=== PATIENT | male | born 1945 | race Caucasian/White ===

== ENCOUNTER → 2017-07-20 10:12 | Outpatient (CLI) | payer MEDICARE, OTHER, SELFPAY ==
--- NOTE | 2017-07-20 | DI.CT.S_ITS ---
PROCEDURE: CT CHEST WO CON INDICATIONS: DIFFUSE PARENCYMAL LUNG DISEASE TECHNIQUE: Noncontrast 5 mm thick sections acquired from the pulmonary apices to the posterior costophrenic angles. 7 mm thick coronal and sagittal MIP reformats were then acquired. For radiation dose reduction, the following was used: automated exposure control, adjustment of mA and/or kV according to patient size. COMPARISON: [facility], CT, THORAX WITHOUT CONTRAST, 01/03/2017, 8:44. [facility], CT, THORAX WITHOUT CONTRAST, 03/28/2017, 9:13. FINDINGS: Image quality: Excellent. Lungs and pleura: No acute air space opacities, and areas of posterior right lung upper lobe and lower lobe densities on the left have resolved. No pleural effusions or pneumothorax. Central and peripheral airways are patent and normal in caliber. Mediastinum: Heart size is normal. No pericardial effusion. No mediastinal adenopathy by size criteria. Thoracic aorta and central pulmonary arteries are normal in size. Esophagus is normal in caliber. No hiatal hernia. Bones and chest wall: No suspicious bony lesions. No vertebral body compression fractures. No axillary or supraclavicular adenopathy by size criteria. Thyroid gland appears normal. Abdomen: Visualized upper abdominal solid organs and bowel loops appear normal in the absence of contrast. IMPRESSION: Mild residual airspace disease appears to represent chronic bibasilar scarring present on prior CT scanning. All areas of new mild suspicious airspace disease present 03/28/17 have resolved. Mild residual medial posterior basilar fibrotic change. Dictated by: Bentley Castro M.D. on 07/20/2017 at 11:12 Approved by: Bentley Castro M.D. on 07/20/2017 at 11:21
== END ==
PROVIDERS: PCP Family Medicine; Visit Provider Internal Medicine Critical Care Medicine
DX: J98.4 Other disorders of lung (principal)
CPT/HCPCS: 71250

== ENCOUNTER → 2017-09-12 09:55 | Outpatient (CLI) | payer MEDICARE, OTHER, SELFPAY ==
--- NOTE | 2017-09-12 | DI.RAD.S_ITS ---
PROCEDURE: XR CHEST 2V INDICATIONS: COUGH TECHNIQUE: 2 views of the chest were acquired. COMPARISON: [facility], CT, CT CHEST WO CON, 07/20/2017, 10:24. [facility], CR, CHEST 2 VIEW, 12/06/2016, 11:53. FINDINGS: Surgical changes and devices: None. Lungs and pleura: No pleural effusions or pneumothorax. Lungs are clear, aside from mild linear stranding involving the left lung base.. Mediastinum: Mediastinal contours are normal. Heart size is normal. Bones and chest wall: No suspicious bony abnormalities. Soft tissues appear unremarkable. IMPRESSION: Left basilar scarring unchanged. No acute cardiopulmonary disease. Dictated by: Hari DAY Interpreted: Jamaal Rogers MD on 09/12/2017 at 10:28 Approved by: Art Rogers M.D. on 09/12/2017 at 10:48
== END ==
PROVIDERS: PCP Family Medicine; Visit Provider Family Medicine
DX: R05 Cough (principal)
CPT/HCPCS: 71046

== ENCOUNTER → 2017-11-02 17:07 | Outpatient (CLI) | payer MEDICARE, OTHER, SELFPAY ==
--- NOTE | 2017-11-02 17:09 | DI.MRI.S_ITS ---
PROCEDURE: MR HEAD/BRAIN WO CON INDICATIONS: MEMORY LOSS COGNITIVE ISSUES TECHNIQUE: Non-contrast axial T1 spin echo, axial T2 fast spin echo, sagittal and axial FLAIR, coronal T2 fast spin echo, axial gradient echo, axial diffusion and ADC through the brain. COMPARISON: None. FINDINGS: Image quality: Excellent. CSF spaces: Ventricles appear symmetric in size and shape. Basal cisterns are patent. No extra-axial fluid collections. Brain: No intracranial bleeds or mass effects. There is cerebral volume loss for age. There are periventricular and deep white matter chronic small vessel ischemic changes. Brainstem appears normal. Diffusion-weighted images show no acute ischemic insults. There are regions of high diffusion signal within the left centrum semiovale, which demonstrate high signal on ADC map, consistent with T2 shine through artifact. No chronic ischemic insults. Normal intravascular flow voids are present. Skull and face: Calvarial bone marrow is normal in signal. Orbits are normal. Sinuses: Moderate bilateral maxillary sinus mucosal thickening is present. Small amount of left mastoid fluid. Moderate bilateral ethmoid air cell mucosal thickening. Mild right frontal sinus the coastal thickening. IMPRESSION: 1. Mild volume loss and small vessel ischemic disease. 2. No acute process. Dictated by: Juanis Lazaro M.D. on 11/03/2017 at 9:00 Approved by: Juanis Lazaro M.D. on 11/03/2017 at 9:03
== END ==
PROVIDERS: PCP Family Medicine; Visit Provider Family Medicine
DX: R41.3 Other amnesia (principal)
CPT/HCPCS: 70551

== ENCOUNTER → 2017-12-19 08:12 | Outpatient (CLI) | payer MEDICARE, OTHER, SELFPAY ==
--- NOTE | 2017-12-19 | DI.NM.S_ITS ---
PROCEDURE: [place] JOSE PERF SPECT REST & STR Rest and exercise myocardial perfusion SPECT with gated imaging and ejection fraction RADIOPHARMACEUTICAL: 24.9 mCi Tc-99m sestamibi IV at rest and 25.3 mCi Tc-99m sestamibi IV at peak exercise. A two day-protocol was performed. INDICATIONS: CORONARY ARTERY DISEASE TECHNIQUE: Radiopharmaceutical was injected at peak stress test, and also at rest. SPECT images were obtained. SPECT myocardial perfusion images were displayed in short axis, horizontal long axis, and vertical long axis views. Gated images were reviewed using [employer] software. COMPARISON: [facility], [place], [place] CARDIAC STRESS TEST EXERCISE, 10/06/2015, 9:13. CARDIAC STRESS: A standard Raghav treadmill exercise tolerance test was performed by the patient under the supervision of an attending staff. The patient exercised for 4 minutes and 43 seconds reaching 7.0 METs; functional aerobic impairment (EMERSON) is +30%. Hemodynamic data: There is normal heart rate response to exercise stress. Patient achieved 92% of maximum predicted heart rate at peak exercise. Hypertension at rest and hypertensive response to exercise (rest BP 170/76, max BP 280/120). Symptoms: Patient denied chest pain during exercise. Hypoxia and dyspnea with exercise. Of note, patient on home oxygen chronically. EKG: Resting ECG shows sinus rhythm with IVCD, right axis deviation, and non-specific ST-T changes. No diagnostic EKG changes of ischemia. Frequent PVCs including one 3 beat run of non-sustained VT during recovery. FINDINGS: Raw data: There is good myocardial labeling by radiotracer. No significant motion artifacts. Left ventricle function: Gated images demonstrate normal left ventricle wall thickening. No segmental wall motion abnormality. No transient ischemic dilation. The left ventricle resting end-diastolic volume is 131 mL. Left ventricle stress ejection fraction is 69%; normal values are above 45%. Myocardial perfusion: There is a moderately intense fixed defect in the anterior wall that improves significantly with prone imaging that suggests attenuation artifact. No definite ischemia or infarction present. IMPRESSION: Low risk, probably normal treadmill nuclear stress test. Hypertension at rest and hypertensive response to exercise. 1) Probably normal perfusion images. There is a moderately intense fixed defect in the anterior wall that improves significantly with prone imaging that suggests attenuation artifact. No definite ischemia or infarction present. 2) Normal left ventricular size, wall motion, and systolic function (post stress EF 69%). 3) No ECG evidence of ischemia. Frequent PVCs including one 3 beat run of non-sustained VT during recovery. 4) Hypertension at rest and hypertensive response to exercise (rest BP 170/76, max BP 280/120). 5) No chest pain with exercise. Hypoxia with exercise (patient on home oxygen). 6) Compared to the nuclear stress test done 10/06/2015, no significant change. Dictated by: Chino Watson MD on 12/20/2017 at 12:46 Approved by: Chino Watson MD on 12/20/2017 at 12:54
--- NOTE | 2017-12-19 09:25 | P.PCN_ITS ---
Cardiac Stress Test Report Referral & Results Date Patient Seen: 12/19/17 Time Patient Seen: 09:23 Requesting provider: Matt Bynum Rest ECG: Right bundle branch block Procedure Note: Today following both written and verbal informed consent the patient was exercised according to a standard Raghav protocol patient went for a total of 4 min 43 sec achieving a maximum heart rate of 135 maximum systolic blood pressure of 280. This is approximately 7.0 METS. Exercise was terminated at this point because of severe dyspnea with oxygen saturation in the mid 80s .Patient was also given Cardiolite through a previously started Hep -Lock IV by the nuclear fuel enrichment technician approximately 1 minute prior to the cessation of exercise. There are no ST segment changes identified Normal heart rate and blood pressure response to exercise Functional aerobic impairment 30% on the sedentary scale Occasional PVCs including a couple and run of 4 (identified when patient was severely dyspneic and hypertensive). Oxygen saturation dropped to the mid 80s but returned quickly to 94% with 2 L nasal cannula during the recovery portion of the test Impression: No evidence of ischemia based on usual ECG criteria Perfusion imaging will be reported separately Significant hypoxia with activity as above Please note: Actual ECG tracings can be found in the PACS system.
== END ==
PROVIDERS: PCP Family Medicine; Visit Provider Internal Medicine Cardiovascular Disease
DX: I25.10 Atherosclerotic heart disease of native coronary artery without angina pectoris (principal); I45.10 Unspecified right bundle-branch block; R09.02 Hypoxemia
CPT/HCPCS: 78452; 93016; 93017; 93018; A9502

== ENCOUNTER 2018-02-09 21:37 | Emergency (ER) | payer MEDICARE, OTHER, SELFPAY ==
[2018-02-09 21:44] VITALS: BP 191/82; PULSE 72; RESP 18; TEMP 37.4; O2SAT 98
--- NOTE | 2018-02-09 21:46 | DI.CT.S_ITS ---
PROCEDURE: CT HEAD/BRAIN WO CON INDICATIONS: stroke symptoms, dizzy, speech trouble TECHNIQUE: Noncontrast 4.5 mm thick angled axial sections acquired from the foramen magnum to the vertex, with coronal and sagittal reformats. For radiation dose reduction, the following was used: automated exposure control, adjustment of mA and/or kV according to patient size. COMPARISON: [facility], CR, XR CHEST 2V, 09/12/2017, 10:15. FINDINGS: Image quality: Excellent. CSF spaces: Basal cisterns are patent. No extra-axial fluid collections. The ventricles are symmetric in size and shape. Brain: No intracranial bleeds or masses. There is cerebral volume loss for age, with resultant ventricular and sulcal prominence. There are periventricular and deep white matter chronic small vessel ischemic changes. There is intracranial internal carotid artery atherosclerosis. Skull and face: Calvarium intact. There is mild irregularity of the visualized nasal bones raising the possibility of chronic fractures. There is bilateral postsurgical changes involving the maxillary sinuses bilaterally. There is residual bilateral maxillary sinus disease. There is also bilateral sphenoid and ethmoid air cell opacification. Mild irregularity and lucency seen in the posterior wall of left maxillary sinus. IMPRESSION: No acute intracranial process. Postsurgical changes and residual bilateral ethmoid, maxillary and sphenoid sinus disease as above. Mild irregularity of the posterior wall of left maxillary sinus could be further evaluated with dedicated maxillofacial CT to exclude fracture, as clinically warranted. Dictated by: Ez Nixon M.D. on 02/10/2018 at 8:06 Approved by: Ez Nixon M.D. on 02/10/2018 at 8:11
[2018-02-09] MEDS: SODIUM CHLORIDE 0.9% 1,000 ML 150 ML IV (22:15)
[2018-02-09 22:18] LABS: Add Manual Diff / Slide Review NO; Basophils Percent Auto 0.6 % (0-2); Eosinophils Percent Auto 1.9 % (2-4); Hematocrit 42.9 % (41-53); Hemoglobin 14.8 g/dL (13.5-17.5); Lymphocytes Percent Auto 17.8 % (25-40); Mean Corpuscular HGB Conc 34.5 % (30-36); Mean Corpuscular Hemoglobin 30.7 PG (26-34); Monocytes Percent Auto 9.7 % (3-14); Neutrophils Absolute Auto 7500 /uL (3000-5900); Platelet Count 262 X10^3/uL (150-400); Red Blood Cell Count 4.82 X10^6/uL (4.5-5.9); Red Cell Distribution Width 13.7 % (11.6-14.8); White Blood Cell Count 10.7 X10^3/uL (4.5-11.0)
[2018-02-09 22:21] LABS: INR 1.1 (0.9-1.3); Prothrombin Time 11.8 SECONDS (10.1-12.7)
[2018-02-09 22:24] LABS: PTT Partial Thromboplastin Tim 29 SECONDS (26.4-36.2)
[2018-02-09 22:26] LABS: BUN Creatinine Ratio 21.3 (6-22); Blood Urea Nitrogen 34 mg/dL (9-20); Calcium 9.6 mg/dL (8.4-10.2); Carbon Dioxide 28 mmol/L (22-32); Chloride 97 mmol/L (98-107); Estimated Glomerular Filt Rate 42.6 mL/min (>60); Glucose 138 mg/dL (80-110); HEMOLYSIS 19 (0-50); Potassium 3.8 mmol/L (3.4-5.1); Sodium 141 mmol/L (137-145)
--- NOTE | 2018-02-09 23:05 | ED.NEUROSD ---
HPI - Neuro Symptoms/Deficit General Chief Complaint: Neuro Symptoms/Deficit Stated Complaint: Thinks having stroke Time Seen by Provider: 02/09/18 21:38 Source: patient Mode of arrival: ambulatory Limitations: no limitations History of Present Illness HPI Narrative: [age] year old male, nonsmoker presents with and chief complaint of dizziness and some trouble finding words. He's been having this sort of trouble for many months and has seen multiple doctors of various specialties for this thusfar. His symptoms today are no worse than what has been happening they just decided to come in for evaluation today. He denies any headache or other focal neurologic findings such as numbness, weakness or tingling of his extremities. Patient has had chronic trouble with his sinuses and had a surgery just a few days ago. He chronically sniffs and complains of some fullness right ear. Onset (ago): month(s) Location: speech History of same: Yes Severity: mild Quality: intermittent Relieving factors: none Exacerbating factors: none On Anticoagulants: Yes (Aspirin) Treatments Prior to Arrival: none Related Data Allergies Allergy/AdvReac Type Severity Reaction Status Date / Time No Known Drug Allergies Allergy Unknown Unverified 06/29/17 12:57 [NO KNOWN DRUG ALLERGIES] tetracycline [TETRACYCLINE] AdvReac Unknown Unverified 06/29/17 12:57 Review of Systems Review of Systems All systems reviewed & are unremarkable except as noted in HPI and below Constitutional Denies chills, Denies fever(s), Denies lethargy and Reports weakness (generalized) Eyes Denies change in vision, Denies eye discharge, Denies irritation and Denies loss of vision ENT Ears, Nose, Mouth, and Throat: Denies change in voice, Reports dizziness, Denies neck pain and Denies sore throat Cardiovascular Denies chest pain, Denies irregular heart rhythm, Denies lightheadedness, Denies palpitations, Denies dyspnea, Denies dyspnea on exertion and Denies orthopnea Respiratory Denies cough, Denies dyspnea, Denies dyspnea on exertion and Denies wheezing Gastrointestinal Gastrointestinal: Denies abdominal pain, Denies change in bowel habits, Denies diarrhea, Denies nausea and Denies vomiting Genitourinary Denies hematuria, Denies flank pain, Denies urinary incontinence and Denies urinary urgency Musculoskeletal Denies neck pain Integumentary/Breasts Denies pruritus, Denies erythema, Denies rash and Denies wounds Neurologic Denies confusion, Reports dizziness, Denies loss of vision and Reports weakness (generalized) Psychiatric Denies anxiety, Denies confusion, Denies depression, Denies homicidal ideation and Denies suicidal ideation Endocrine Denies palpitations Hematologic/Lymphatic Denies easy bruising Allergic/Immunologic Denies wheezing [facility] Social History marital status: Smoking Status: Former smoker alcohol intake: current substance use type: does not use Exam Narrative Exam Narrative: GENERAL: Pleasant 72-year-old male constantly sniffing, at bedside HEAD: Atraumatic. Normocephalic. No temporal or scalp tenderness. EYES: Pupils equal round and reactive. Extraocular motions intact. No scleral icterus. No injection or drainage. ENT: Clear drainage from nose. Mild effusion R TM NECK: Trachea midline. No JVD or lymphadenopathy. Supple, nontender, no meningeal signs. CARDIOVASCULAR: Regular rate and rhythm without murmurs, gallops, or rubs. RESPIRATORY: Clear to auscultation. Breath sounds equal bilaterally. No wheezes, rales, or rhonchi. GASTROINTESTINAL: Abdomen soft, non-tender, nondistended. No hepato-splenomegaly, or palpable masses. No guarding. EXTREMITIES: No clubbing, cyanosis, or edema. No joint tenderness, effusion, or edema noted. BACK: Nontender without deformity or crepitance. No flank tenderness. NEURO: AOx3. SKIN: No rash or erythema. NIH Stroke Scale 1a. LOC: Patient is alert and keenly responsive (0) 1b. LOC Questions: Patient answers both LOC questions accurately (0) 1c. LOC Commands: Patient performs both tasks correctly (0) 2. Best Gaze: Normal (0) 3. Visual: No visual loss (0) 4. Facial palsy: Normal symmetrical movements (0) 5. Motor arm: No drift (0) 6. Motor leg: No drift (0) 7. Limb ataxia: Absent (0) 8. Sensory: Normal (0) 9. Best language: No aphasia; normal (0) 10. Dysarthria: Normal (0) 11. Extinction and inattention: No abnormality (0) NIHSS: 0 Initial Vital Signs Initial Vital Signs: Vital Signs Temperature 99.3 F 02/09/18 21:44 Pulse Rate 72 02/09/18 21:44 Respiratory Rate 18 02/09/18 21:44 Blood Pressure 191/82 H 02/09/18 21:44 Pulse Oximetry 98 02/09/18 21:44 Course Orders Ordered: ED Orders 02/09/18 21:46 CT head/brain wo con Stat EKG-12 Lead Stat 02/09/18 22:08 Basic Metabolic Panel Stat Complete Blood Count AUTO DIFF Stat Partial Thromboplastin Time Stat Prothrombin Time INR Stat 02/09/18 23:08 Urine Drug Screen, Rapid Stat Urine Microscopic Stat Discontinued Medications Sodium Chloride (Normal Saline 0.9%) 1,000 mls @ 150 mls/hr IV CONT PARKER Last Infusion: 02/09/18 23:53 Dose: 0 mls/hr Admin: 02/09/18 22:15 Dose: 150 mls/hr Vital Signs - 8 hr 02/09/18 23:53 Pulse Rate 75 Respiratory Rate 18 Blood Pressure 154/76 H Pulse Oximetry 98 MDM - Neuro Symptoms/Deficit Differential Diagnosis Likely subarachnoid hemorrhage, cerebrovascular accident, multiple sclerosis, transient cerebral ischemia and other Medical Records Attestation: I reviewed the patient's medical records. Lab Data Attestation: I reviewed the patient's lab results. Result diagrams: 02/09/18 22:08 02/09/18 22:08 Lab Results 02/09/18 02/09/18 02/09/18 Range/Units 22:08 22:08 22:08 WBC 10.7 (4.5-11.0) X10^3/uL RBC 4.82 (4.5-5.9) X10^6/uL Hgb 14.8 (13.5-17.5) g/dL Hct 42.9 (41-53) % MCV 89.0 (80-100) fL MCH 30.7 (26-34) PG MCHC 34.5 (30-36) % RDW 13.7 (11.6-14.8) % Plt Count 262 (150-400) X10^3/uL Neut % (Auto) 70.0 (50-75) % Lymph % (Auto) 17.8 L (25-40) % Kinney % (Auto) 9.7 (3-14) % Eos % (Auto) 1.9 L (2-4) % Baso % (Auto) 0.6 (0-2) % Neut # (Auto) 7500 H (9579-8614) /uL PT 11.8 (10.1-12.7) SECONDS INR 1.1 (0.9-1.3) APTT 29 (26.4-36.2) SECONDS Sodium 141 (137-145) mmol/L Potassium 3.8 (3.4-5.1) mmol/L Chloride 97 L (98-107) mmol/L Carbon Dioxide 28 (22-32) mmol/L BUN 34 H (9-20) mg/dL Creatinine 1.60 H (0.66-1.25) mg/dL Estimated GFR 42.6 L (>60) mL/min BUN/Creatinine Ratio 21.3 (6-22) Glucose 138 H (80-110) mg/dL Calcium 9.6 (8.4-10.2) mg/dL Urine RBC (0-5/HPF) Urine WBC (0-5/HPF) Urine Bacteria (None) Hyaline Casts (None) Ur Culture Indicated? Micro UA Comment Urine Opiates Screen (Negative) Ur Oxycodone Screen (Negative) Urine Methadone Screen (Negative) Ur Barbiturates Screen (Negative) U Tricyclic Antidepress (Negative) Ur Phencyclidine Scrn (Negative) Ur Amphetamines Screen (Negative) U Methamphetamines Scrn (Negative) Ur MDMA Scrn (Ecstasy) (Negative) U Benzodiazepines Scrn (Negative) Urine Cocaine Screen (Negative) U Marijuana (THC) Screen (Negative) 02/09/18 02/09/18 Range/Units 23:08 23:08 WBC (4.5-11.0) X10^3/uL RBC (4.5-5.9) X10^6/uL Hgb (13.5-17.5) g/dL Hct (41-53) % MCV (80-100) fL MCH (26-34) PG MCHC (30-36) % RDW (11.6-14.8) % Plt Count (150-400) X10^3/uL Neut % (Auto) (50-75) % Lymph % (Auto) (25-40) % Kinney % (Auto) (3-14) % Eos % (Auto) (2-4) % Baso % (Auto) (0-2) % Neut # (Auto) (9372-9710) /uL PT (10.1-12.7) SECONDS INR (0.9-1.3) APTT (26.4-36.2) SECONDS Sodium (137-145) mmol/L Potassium (3.4-5.1) mmol/L Chloride (98-107) mmol/L Carbon Dioxide (22-32) mmol/L BUN (9-20) mg/dL Creatinine (0.66-1.25) mg/dL Estimated GFR (>60) mL/min BUN/Creatinine Ratio (6-22) Glucose (80-110) mg/dL Calcium (8.4-10.2) mg/dL Urine RBC None seen (0-5/HPF) Urine WBC 1-5/hpf (0-5/HPF) Urine Bacteria None seen (None) Hyaline Casts 5-10/lpf (None) Ur Culture Indicated? Cult not indicated Micro UA Comment Not Reportable Urine Opiates Screen Negative (Negative) Ur Oxycodone Screen Positive H (Negative) Urine Methadone Screen Negative (Negative) Ur Barbiturates Screen Negative (Negative) U Tricyclic Antidepress Negative (Negative) Ur Phencyclidine Scrn Negative (Negative) Ur Amphetamines Screen Negative (Negative) U Methamphetamines Scrn Negative (Negative) Ur MDMA Scrn (Ecstasy) Negative (Negative) U Benzodiazepines Scrn Positive H (Negative) Urine Cocaine Screen Negative (Negative) U Marijuana (THC) Screen Positive H (Negative) Urine Dip Bedside Urine Glucose Negative Bedside Urine Bilirubin - Negative Bedside Urine Ketone +/- 5 Urine Specific [place] 1.030 Bedside Urine Occult Blood - Negative Bedside Urine pH 6.0 Bedside Urine Protein +/- 15 Bedside Urine Urobilinogen - Negative Bedside Urine Nitrite - Negative Bedside Urine Leukocytes - Negative Esterase Imaging Data CT scan - head: Radiologist's impression: [facility] Narrative Medical decision making narrative: 72-year-old male with chronic history of dizziness, ataxia and sinus problems presents under similar circumstances. He has no focal neurologic findings and a CT that is unremarkable. NIHSS is 0. Symptoms appear to be chronic and unlikely to require admission. Patient happy to be discharged and pursue close follow up. Patient and had no questions regarding return precautions. Discharge Plan Departure Patient Disposition: Home Clinical Impression: Dizziness Discharge Date/Time: 02/09/18 23:57 Interventions: ED Discharge Assessment Last Done: 02/09/18 23:53 Instructions: DI for Dizziness-Nonvertigo Activity Restrictions/Additional Instructions: *You have been diagnosed with [ chronic dizziness ] *What to do: *Continue to take medications as directed *Follow up with your primary care provider in 2-3 days, call for an appointment. Let them know you were seen in the Emergency Department and that we ask that you be seen in follow up *Return to ER if you should have any new, worsening or concerning symptoms Referrals: Thiago Dumont MD [Primary Care Provider] -
[2018-02-09 23:32] LABS: Urine Amphetamines Negative (Negative); Urine Barbiturates Negative (Negative); Urine Benzodiazepines Positive (Negative); Urine Cocaine Negative (Negative); Urine MDMA Negative (Negative); Urine Methadone Negative (Negative); Urine Methamphetamines Negative (Negative); Urine Morphine/Opi cutoff 2000 Negative (Negative); Urine Oxycodone Positive (Negative); Urine Phencyclidine Negative (Negative); Urine Tetrahydrocannabinol Positive (Negative); Urine Tricyclic Antidepressant Negative (Negative)
[2018-02-09 23:43] LABS: Bacteria Urine None Seen; RBC Urine None Seen (0-5/HPF)
[2018-02-09 23:53] VITALS: BP 154/76; PULSE 75; RESP 18; O2SAT 98
[2018-02-10 00:11] LABS: Culture Indicated Urine Cult Not Indicated; Hyaline Casts Urine 5-10/LPF; WBC Urine 1-5/HPF (0-5/HPF)
--- NOTE | 2018-02-10 06:35 | ED_ITS ---
HPI - Neuro Symptoms/Deficit General Chief Complaint: Neuro Symptoms/Deficit Stated Complaint: Thinks having stroke Time Seen by Provider: 02/09/18 21:38 Source: patient Mode of arrival: ambulatory Limitations: no limitations History of Present Illness HPI Narrative: [age] year old male, nonsmoker presents with and chief complaint of dizziness and some trouble finding words. He's been having this sort of trouble for many months and has seen multiple doctors of various specialties for this thusfar. His symptoms today are no worse than what has been happening they just decided to come in for evaluation today. He denies any headache or other focal neurologic findings such as numbness, weakness or tingling of his extremities. Patient has had chronic trouble with his sinuses and had a surgery just a few days ago. He chronically sniffs and complains of some fullness right ear. Onset (ago): month(s) Location: speech History of same: Yes Severity: mild Quality: intermittent Relieving factors: none Exacerbating factors: none On Anticoagulants: Yes (Aspirin) Treatments Prior to Arrival: none Related Data Allergies Allergy/AdvReac Type Severity Reaction Status Date / Time No Known Drug Allergies Allergy Unknown Unverified 06/29/17 12:57 [NO KNOWN DRUG ALLERGIES] tetracycline [TETRACYCLINE] AdvReac Unknown Unverified 06/29/17 12:57 Review of Systems Review of Systems All systems reviewed & are unremarkable except as noted in HPI and below Constitutional Denies chills, Denies fever(s), Denies lethargy and Reports weakness ( generalized) Eyes Denies change in vision, Denies eye discharge, Denies irritation and Denies loss of vision ENT Ears, Nose, Mouth, and Throat: Denies change in voice, Reports dizziness, Denies neck pain and Denies sore throat Cardiovascular Denies chest pain, Denies irregular heart rhythm, Denies lightheadedness, Denies palpitations, Denies dyspnea, Denies dyspnea on exertion and Denies orthopnea Respiratory Denies cough, Denies dyspnea, Denies dyspnea on exertion and Denies wheezing Gastrointestinal Gastrointestinal: Denies abdominal pain, Denies change in bowel habits, Denies diarrhea, Denies nausea and Denies vomiting Genitourinary Denies hematuria, Denies flank pain, Denies urinary incontinence and Denies urinary urgency Musculoskeletal Denies neck pain Integumentary/Breasts Denies pruritus, Denies erythema, Denies rash and Denies wounds Neurologic Denies confusion, Reports dizziness, Denies loss of vision and Reports weakness (generalized) Psychiatric Denies anxiety, Denies confusion, Denies depression, Denies homicidal ideation and Denies suicidal ideation Endocrine Denies palpitations Hematologic/Lymphatic Denies easy bruising Allergic/Immunologic Denies wheezing [facility] Social History marital status: Smoking Status: Former smoker alcohol intake: current substance use type: does not use Exam Narrative Exam Narrative: GENERAL: Pleasant 72-year-old male constantly sniffing, at bedside HEAD: Atraumatic. Normocephalic. No temporal or scalp tenderness. EYES: Pupils equal round and reactive. Extraocular motions intact. No scleral icterus. No injection or drainage. ENT: Clear drainage from nose. Mild effusion R TM NECK: Trachea midline. No JVD or lymphadenopathy. Supple, nontender, no meningeal signs. CARDIOVASCULAR: Regular rate and rhythm without murmurs, gallops, or rubs. RESPIRATORY: Clear to auscultation. Breath sounds equal bilaterally. No wheezes , rales, or rhonchi. GASTROINTESTINAL: Abdomen soft, non-tender, nondistended. No hepato-splenomegaly , or palpable masses. No guarding. EXTREMITIES: No clubbing, cyanosis, or edema. No joint tenderness, effusion, or edema noted. BACK: Nontender without deformity or crepitance. No flank tenderness. NEURO: AOx3. SKIN: No rash or erythema. NIH Stroke Scale 1a. LOC: Patient is alert and keenly responsive (0) 1b. LOC Questions: Patient answers both LOC questions accurately (0) 1c. LOC Commands: Patient performs both tasks correctly (0) 2. Best Gaze: Normal (0) 3. Visual: No visual loss (0) 4. Facial palsy: Normal symmetrical movements (0) 5. Motor arm: No drift (0) 6. Motor leg: No drift (0) 7. Limb ataxia: Absent (0) 8. Sensory: Normal (0) 9. Best language: No aphasia; normal (0) 10. Dysarthria: Normal (0) 11. Extinction and inattention: No abnormality (0) NIHSS: 0 Initial Vital Signs Initial Vital Signs: Vital Signs Temperature 99.3 F 02/09/18 21:44 Pulse Rate 72 02/09/18 21:44 Respiratory Rate 18 02/09/18 21:44 Blood Pressure 191/82 H 02/09/18 21:44 Pulse Oximetry 98 02/09/18 21:44 Course Orders Ordered: ED Orders 02/09/18 21:46 CT head/brain wo con Stat EKG-12 Lead Stat 02/09/18 22:08 Basic Metabolic Panel Stat Complete Blood Count AUTO DIFF Stat Partial Thromboplastin Time Stat Prothrombin Time INR Stat 02/09/18 23:08 Urine Drug Screen, Rapid Stat Urine Microscopic Stat Discontinued Medications Sodium Chloride (Normal Saline 0.9%) 1,000 mls @ 150 mls/hr IV CONT PARKER Last Infusion: 02/09/18 23:53 Dose: 0 mls/hr Admin: 02/09/18 22:15 Dose: 150 mls/hr Vital Signs - 8 hr 02/09/18 23:53 Pulse Rate 75 Respiratory Rate 18 Blood Pressure 154/76 H Pulse Oximetry 98 MDM - Neuro Symptoms/Deficit Differential Diagnosis Likely subarachnoid hemorrhage, cerebrovascular accident, multiple sclerosis, transient cerebral ischemia and other Medical Records Attestation: I reviewed the patient's medical records. Lab Data Attestation: I reviewed the patient's lab results. Result diagrams: 02/09/18 22:08 02/09/18 22:08 Lab Results 02/09/18 02/09/18 02/09/18 Range/Units 22:08 22:08 22:08 WBC 10.7 (4.5-11.0) X10^3/uL RBC 4.82 (4.5-5.9) X10^6/uL Hgb 14.8 (13.5-17.5) g/dL Hct 42.9 (41-53) % MCV 89.0 (80-100) fL MCH 30.7 (26-34) PG MCHC 34.5 (30-36) % RDW 13.7 (11.6-14.8) % Plt Count 262 (150-400) X10^3/uL Neut % (Auto) 70.0 (50-75) % Lymph % (Auto) 17.8 L (25-40) % Lamar % (Auto) 9.7 (3-14) % Eos % (Auto) 1.9 L (2-4) % Baso % (Auto) 0.6 (0-2) % Neut # (Auto) 7500 H (2705-9847) /uL PT 11.8 (10.1-12.7) SECONDS INR 1.1 (0.9-1.3) APTT 29 (26.4-36.2) SECONDS Sodium 141 (137-145) mmol/L Potassium 3.8 (3.4-5.1) mmol/L Chloride 97 L (98-107) mmol/L Carbon Dioxide 28 (22-32) mmol/L BUN 34 H (9-20) mg/dL Creatinine 1.60 H (0.66-1.25) mg/dL Estimated GFR 42.6 L (>60) mL/min BUN/Creatinine Ratio 21.3 (6-22) Glucose 138 H (80-110) mg/dL Calcium 9.6 (8.4-10.2) mg/dL Urine RBC (0-5/HPF) Urine WBC (0-5/HPF) Urine Bacteria (None) Hyaline Casts (None) Ur Culture Indicated? Micro UA Comment Urine Opiates Screen (Negative) Ur Oxycodone Screen (Negative) Urine Methadone Screen (Negative) Ur Barbiturates Screen (Negative) U Tricyclic Antidepress (Negative) Ur Phencyclidine Scrn (Negative) Ur Amphetamines Screen (Negative) U Methamphetamines Scrn (Negative) Ur MDMA Scrn (Ecstasy) (Negative) U Benzodiazepines Scrn (Negative) Urine Cocaine Screen (Negative) U Marijuana (THC) Screen (Negative) 02/09/18 02/09/18 Range/Units 23:08 23:08 WBC (4.5-11.0) X10^3/uL RBC (4.5-5.9) X10^6/uL Hgb (13.5-17.5) g/dL Hct (41-53) % MCV (80-100) fL MCH (26-34) PG MCHC (30-36) % RDW (11.6-14.8) % Plt Count (150-400) X10^3/uL Neut % (Auto) (50-75) % Lymph % (Auto) (25-40) % Lamar % (Auto) (3-14) % Eos % (Auto) (2-4) % Baso % (Auto) (0-2) % Neut # (Auto) (6748-0425) /uL PT (10.1-12.7) SECONDS INR (0.9-1.3) APTT (26.4-36.2) SECONDS Sodium (137-145) mmol/L Potassium (3.4-5.1) mmol/L Chloride (98-107) mmol/L Carbon Dioxide (22-32) mmol/L BUN (9-20) mg/dL Creatinine (0.66-1.25) mg/dL Estimated GFR (>60) mL/min BUN/Creatinine Ratio (6-22) Glucose (80-110) mg/dL Calcium (8.4-10.2) mg/dL Urine RBC None seen (0-5/HPF) Urine WBC 1-5/hpf (0-5/HPF) Urine Bacteria None seen (None) Hyaline Casts 5-10/lpf (None) Ur Culture Indicated? Cult not indicated Micro UA Comment Not Reportable Urine Opiates Screen Negative (Negative) Ur Oxycodone Screen Positive H (Negative) Urine Methadone Screen Negative (Negative) Ur Barbiturates Screen Negative (Negative) U Tricyclic Antidepress Negative (Negative) Ur Phencyclidine Scrn Negative (Negative) Ur Amphetamines Screen Negative (Negative) U Methamphetamines Scrn Negative (Negative) Ur MDMA Scrn (Ecstasy) Negative (Negative) U Benzodiazepines Scrn Positive H (Negative) Urine Cocaine Screen Negative (Negative) U Marijuana (THC) Screen Positive H (Negative) Urine Dip Bedside Urine Glucose Negative Bedside Urine Bilirubin - Negative Bedside Urine Ketone +/- 5 Urine Specific [place] 1.030 Bedside Urine Occult Blood - Negative Bedside Urine pH 6.0 Bedside Urine Protein +/- 15 Bedside Urine Urobilinogen - Negative Bedside Urine Nitrite - Negative Bedside Urine Leukocytes - Negative Esterase Imaging Data CT scan - head: Radiologist's impression: [facility] Narrative Medical decision making narrative: 72-year-old male with chronic history of dizziness, ataxia and sinus problems presents under similar circumstances. He has no focal neurologic findings and a CT that is unremarkable. NIHSS is 0. Symptoms appear to be chronic and unlikely to require admission. Patient happy to be discharged and pursue close follow up. Patient and had no questions regarding return precautions. Discharge Plan Departure Patient Disposition: Home Clinical Impression: Dizziness Discharge Date/Time: 02/09/18 23:57 Interventions: ED Discharge Assessment Last Done: 02/09/18 23:53 Instructions: DI for Dizziness-Nonvertigo Activity Restrictions/Additional Instructions: *You have been diagnosed with [ chronic dizziness ] *What to do: *Continue to take medications as directed *Follow up with your primary care provider in 2-3 days, call for an appointment. Let them know you were seen in the Emergency Department and that we ask that you be seen in follow up *Return to ER if you should have any new, worsening or concerning symptoms Referrals: Thiago Dumont MD [Primary Care Provider] -
== END 2018-02-09 23:57 | disposition home or self-care (01) ==
PROVIDERS: Emergency Provider Emergency Medicine; PCP Family Medicine
DX: R42 Dizziness and giddiness (principal)
CPT/HCPCS: 70450; 80048; 80305; 81003; 81015; 85025; 85610; 85730; 93005; 96360; 96361; 99283; 99285; 99291

== ENCOUNTER → 2018-02-15 18:22 | Outpatient (CLI) | payer MEDICARE, OTHER, SELFPAY ==
--- NOTE | 2018-02-15 18:23 | DI.MRI.S_ITS ---
PROCEDURE: MR STROKE Pre- and post-contrast brain MRI, non-contrast brain MR angiogram, pre- and postcontrast neck MR angiogram INDICATIONS: SLURRED SPEECH, GROUND LEVEL FALLS WITH SHAKING TECHNIQUE: Brain: Noncontrast axial T1 spin echo, axial T2 fast spin echo, sagittal and axial FLAIR, coronal T2 fast spin echo, axial gradient echo, axial diffusion and ADC through the brain. After the administration of contrast, axial 3D VIBE of the cranial vasculature and brain. Brain MRA: Non-contrast 3-D time of flight MR angiogram, with multiple uqrxfts-dtuxgoedh-lwraccpqkg (MIP) reformats performed. Neck MRA: Axial and sagittal TruFISP through the neck. Coronal dynamic MR angiogram during administration of contrast in the arterial and venous phases, with 3-dimenstional eqivsav-lpojzgxww-vcevglykef (MIP) reformats constructed from subtraction images. COMPARISON: [facility], MR, MR HEAD/BRAIN WO CON, 11/02/2017, 17:20. FINDINGS: Image quality: Excellent. BRAIN: CSF spaces: Ventricles are normal in size and shape. Basal cisterns are patent. No extra-axial fluid collections. Brain: No intracranial bleeds or mass effects. There is mild diffuse cerebral volume loss. Mild degree of patchy high FLAIR signal within the periventricular and subcortical white matter, consistent with small vessel ischemic disease. Frias-white matter interface is normal. Diffusion weighted images show no acute ischemic insults. Brainstem appears normal. No abnormal intracranial enhancement. Skull and face: Calvarial marrow signal is normal. Orbits appear normal. Sinuses: There is severe bilateral maxillary sinus the costal thickening. Severe bilateral ethmoid air some mucosal thickening. Mild bilateral frontal and sphenoid sinus because of thickening. BRAIN MR ANGIOGRAM: Limited examination secondary to technical factors. A large portion of the intracranial vascular is excluded from the examination. Right internal cord artery is occluded. Left internal carotid artery is mildly diffusely narrowed, possibly due to flow limitations. Anterior cerebral arteries are not seen. Middle cerebral arteries are not seen. Left vertebral artery is dominant. There is a moderate to high-grade stenosis within the distal left vertebral artery adjacent to the confluence with the right vertebral artery. Decreased flow within the proximal basilar artery is present, which is not seen on the accompanying neck MR angiography examination, likely represent an artifact. NECK MR ANGIOGRAM: Carotids: Great vessels demonstrate a conventional anatomy as they arise from the aortic arch. The origins of the common carotid arteries appear patent. The calibers and courses of both common carotid arteries are normal. Right internal carotid artery is occluded at its origin. Right external carotid artery is patent. Left internal carotid artery demonstrates a high-grade, greater than 95% stenosis just distal to its origin. Left external carotid artery is patent. Posterior circulation: Moderate right vertebral artery origin stenosis. Mild left vertebral artery origin stenosis. Moderate distal left vertebral artery stenosis. Right vertebral artery is patent otherwise. Previously seen high-grade proximal basilar artery stenosis is not seen. Miscellaneous: Moderate to high-grade proximal right subclavian artery stenosis. Pre-contrast images through the neck show no soft tissue abnormalities. IMPRESSION: BRAIN MRI: 1. No acute process. No recent infarct. 2. Volume loss and small vessel ischemic disease. 3. Pansinus disease. BRAIN MR ANGIOGRAM: 1. Occluded right internal carotid artery. Patent small caliber left internal carotid artery, likely secondary to flow limitation. 2. Left distal vertebral artery stenosis. Probable artifactual stenosis within the proximal basilar artery. NECK MR ANGIOGRAM: 1. Occluded right internal cord artery. 2. Critical left internal carotid artery origin stenosis. 3. Bilateral vertebral artery stenoses as described above. Dictated by: Juanis Lazaro M.D. on 02/16/2018 at 8:35 Approved by: Juanis Lazaro M.D. on 02/16/2018 at 8:45
== END ==
PROVIDERS: PCP Family Medicine; Visit Provider Family Medicine
DX: I65.23 Occlusion and stenosis of bilateral carotid arteries (principal); I65.03 Occlusion and stenosis of bilateral vertebral arteries; R47.81 Slurred speech; Z91.81 History of falling
CPT/HCPCS: 70553; A9579

== ENCOUNTER → 2018-04-08 10:40 | Outpatient (REF) | payer MEDICARE, OTHER, SELFPAY | LOC: LAB 10:40 | PROVIDERS: PCP Family Medicine; Visit Provider Family Medicine | DX: R39.15 Urgency of urination (principal) | CPT/HCPCS: 87086 ==

== ENCOUNTER → 2018-04-19 10:08 | Outpatient (CLI) | payer MEDICARE, OTHER, SELFPAY ==
--- NOTE | 2018-04-19 | DI.CT.S_ITS ---
PROCEDURE: CT CHEST WO CON INDICATIONS: PULMONARY ASPERGILLOSIS,DIFFUSE PARENCHYMAL LUNG DX TECHNIQUE: Noncontrast 5 mm thick sections acquired from the pulmonary apices to the posterior costophrenic angles. 7 mm thick coronal and sagittal MIP reformats were then acquired. For radiation dose reduction, the following was used: automated exposure control, adjustment of mA and/or kV according to patient size. COMPARISON: [facility], CT, CT CHEST WO CON, 07/20/2017, 10:24. FINDINGS: Image quality: Excellent. Lungs and pleura: No acute consolidation. Scattered subsegmental atelectasis and/or scarring. There is increased or more conspicuous appearance of ill-defined groundglass nodularity within the posterior left upper lobe, technically non-specific finding. No pleural effusions or pneumothorax. Central and peripheral airways are patent and normal in caliber. Mediastinum: Heart size is normal. Calcified coronary artery disease. No pericardial effusion. No mediastinal adenopathy by size criteria. Thoracic aorta and central pulmonary arteries are normal in size. Esophagus is normal in caliber. No hiatal hernia. Bones and chest wall: No suspicious bony lesions. No vertebral body compression fractures. No axillary or supraclavicular adenopathy by size criteria. Thyroid gland unremarkable. Incidentally noted bilateral gynecomastia Abdomen: Visualized upper abdominal solid organs and bowel loops appear normal in the absence of contrast. IMPRESSION: Slightly increased ill-defined groundglass sub-5 mm nodularity involving the posterior left upper lobe, technically nonspecific although atypical/viral pneumonia is in the differential, as is low grade aspiration pneumonitis. Please correlate clinically. No new acute consolidation. Unchanged bibasilar atelectasis/scarring. Coronary artery disease. Dictated by: Ez Nixon M.D. on 04/19/2018 at 11:47 Approved by: Ez Nixon M.D. on 04/19/2018 at 11:55
== END ==
PROVIDERS: PCP Family Medicine; Visit Provider Internal Medicine Critical Care Medicine
DX: B44.1 Other pulmonary aspergillosis (principal); J98.4 Other disorders of lung; I25.10 Atherosclerotic heart disease of native coronary artery without angina pectoris
CPT/HCPCS: 71250

== ENCOUNTER → 2018-12-19 10:41 | Outpatient (CLI) | payer MEDICARE, OTHER, SELFPAY ==
--- NOTE | 2018-12-19 | DI.RAD.S_ITS ---
PROCEDURE: XR CHEST 2V INDICATIONS: POST FALL FROM LADDER TECHNIQUE: 2 views of the chest were acquired. COMPARISON: [facility], CR, XR CHEST 2V, 09/12/2017, 10:15. FINDINGS: Surgical changes and devices: None. Lungs and pleura: No acute consolidation. Scattered subsegmental atelectasis and/or scarring. No pleural effusion. No pneumothorax. Mediastinum: Mediastinal contours are normal. Heart size is normal. Bones and chest wall: No suspicious bony abnormalities. Soft tissues appear unremarkable. IMPRESSION: Scattered atelectasis and/or scarring. No definite focal consolidation. No pneumothorax. Dictated by: zE Nixon M.D. on 12/19/2018 at 14:50 Approved by: Ez Nixon M.D. on 12/19/2018 at 14:52
--- NOTE | 2018-12-19 | DI.RAD.S_ITS ---
PROCEDURE: XR WRIST LT MIN 3V INDICATIONS: POST FALL FROM LADDER TECHNIQUE: 4 views of the wrist were acquired. COMPARISON: [facility], , WRIST MINIMUM 3 VIEWS RIGHT, 04/06/2016, 10:12. FINDINGS: Bones: No fractures or dislocations. No suspicious bony lesions. First CMC and triscaphe joint degeneration Scaphoid view: No fracture Soft tissues: No suspicious soft tissue calcifications. IMPRESSION: No fracture. If the patient's symptoms do not improve recommend followup radiographs in 10 days to assess for healing sclerosis/occult injury. Dictated by: Ez Nixon M.D. on 12/19/2018 at 14:52 Approved by: Ez Nixon M.D. on 12/19/2018 at 14:53
[2018-12-19 11:09] LABS: Blood Urea Nitrogen 29 mg/dL (9-20); Calcium 9.5 mg/dL (8.4-10.2); Carbon Dioxide 32 mmol/L (22-32); Chloride 102 mmol/L (98-107); Estimated Glomerular Filt Rate > 60.0 mL/min (>60); Glucose 115 mg/dL (80-110); HEMOLYSIS < 15 (0-50); Potassium 5.3 mmol/L (3.4-5.1); Sodium 142 mmol/L (137-145)
--- NOTE | 2018-12-19 11:56 | DI.CT.S_ITS ---
PROCEDURE: CT ABDOMEN W CON INDICATIONS: Left upper quadrant abdominal pain post fall from ladder TECHNIQUE: After the administration of intravenous contrast, 5 mm thick sections acquired from the diaphragm to the iliac crests. 5 mm coronal and sagittal reformats were performed. For radiation dose reduction, the following was used: automated exposure control, adjustment of mA and/or kV according to patient size. COMPARISON: None. FINDINGS: Image quality: Excellent. Lung bases: Minimal bibasilar atelectasis. Heart size is normal. Solid organs: Liver is normal in size and enhancement. Gallbladder is unremarkable. Biliary system is non dilated. Pancreas enhances normally. Spleen is normal in size and enhancement. No adrenal nodules. Kidneys demonstrate normal size and enhancement, without hydronephrosis. Peritoneum and bowel: Bowel loops demonstrate normal wall thickness and caliber. No free fluid or air. Nodes and vessels: No retroperitoneal or mesenteric adenopathy by size criteria. Aorta and inferior vena cava are normal in size. Moderate atherosclerotic plaque in the aorta. No focal stenosis. Miscellaneous: No ventral hernias. Bony structures: No rib fractures. No vertebral fractures. Remote L4-L5 fusion. IMPRESSION: 1. No evidence of significant sequelae of acute trauma. 2. Atherosclerosis. Dictated by: Cristobal Martinez M.D. on 12/19/2018 at 12:25 Approved by: Cristobal Martinez M.D. on 12/19/2018 at 12:35
== END ==
PROVIDERS: PCP Family Medicine; Visit Provider Internal Medicine
DX: R10.12 Left upper quadrant pain (principal); W11.XXXA Fall on and from ladder, initial encounter; I10 Essential (primary) hypertension
CPT/HCPCS: 36415; 71046; 73110; 74160; 80048; Q9967

== ENCOUNTER → 2019-04-30 13:50 | Outpatient (CLI) | payer MEDICARE, OTHER, SELFPAY ==
--- NOTE | 2019-04-30 | DI.MRI.S_ITS ---
PROCEDURE: MR CERVICAL SPINE WO CON INDICATIONS: Cervicalgia TECHNIQUE: Noncontrast sagittal T1 spin echo and T2 fast spin echo, sagittal STIR, foraminal oblique sagittal T2 fast spin echo, and axial gradient echo or T2 fast spin echo through the cervical spine. COMPARISON: [facility], , C-SPINE WITHOUT CONTRAST, 04/12/2011, 7:40. FINDINGS: Image quality: Excellent. Alignment and Curvature: Straightening of the normal cervical lordosis Bone Marrow: No fracture. Multilevel degenerative endplate sclerosis and spurring. Diffuse facet arthropathy. Spinal Cord: Visualized spinal cord has normal size and signal. No cerebellar tonsillar herniation. Paraspinous Soft Tissues: No paravertebral masses. Prevertebral soft tissues are normal in thickness. C2-C3: No canal stenosis. No definite left foraminal stenosis. Moderate right foraminal stenosis with nerve root compression. On axial images this appears unchanged since the prior study C3-C4: Moderate central canal narrowing with effacement of anterior and posterior thecal sac. This appears progressed since the prior study. Severe right foraminal stenosis with nerve root compression. Moderate to severe left foraminal stenosis with nerve root compression. On axial images, this is probably unchanged since the prior study. C4-C5: Mild central canal narrowing with effacement of the anterior thecal sac. This appears progressed since the prior study. Mild right foraminal narrowing. Moderate to severe left foraminal stenosis. On axial images this appears progressed on the left and no definite change on the right C5-C6: Moderate central canal narrowing, which is grossly unchanged since the prior study.Moderate right foraminal narrowing. Moderate to severe left foraminal stenosis with nerve root compression. Overall, no definite interval change since the prior study on axial images. C6-C7: Severe central canal narrowing. Moderate left and severe right foraminal stenoses with nerve root compression. No definite interval change on axial images C7-T1: Mild central canal narrowing, which appears unchanged. No definite left foraminal stenosis. Mild-moderate right foraminal narrowing. No definite interval change on axial images. IMPRESSION: Multilevel cervical spondylosis and facet arthropathy, with interval progression (at C3-C4, C4-C5) as detailed above by spinal level. Suboptimal comparison given differences in exam protocol. Straightening of the normal cervical lordosis Dictated by: Ez Nixon M.D. on 04/30/2019 at 14:58 Approved by: Ez Nixon M.D. on 04/30/2019 at 15:08
== END ==
PROVIDERS: PCP Family Medicine; Referring Provider Orthopaedic Surgery Orthopaedic Surgery of the Spine; Visit Provider Orthopaedic Surgery Orthopaedic Surgery of the Spine
DX: M54.2 Cervicalgia (principal); M47.812 Spondylosis without myelopathy or radiculopathy, cervical region
CPT/HCPCS: 72141

== ENCOUNTER 2019-05-03 10:10 | Day surgery (SDC) | payer MEDICARE, OTHER, SELFPAY ==
[2019-05-03] MEDS: PROPARACAINE 0.5% OPHTH SOL 2 DROPS EYE-OP (10:36)
[2019-05-03] MEDS: CATARACT EYE COMPOUND (10 DROPS/SYRINGE) 3 DROPS EYE-OP (10:43)
[2019-05-03 10:56] VITALS: BMI 33.5
--- NOTE | 2019-05-03 10:58 | PM.PREOP ---
Pre-operative Note Interval Note History & Physical reviewed/Exam performed by Physician: Yes Changes to H&P: No
[2019-05-03 11:01] VITALS: BP 167/49; PULSE 44; RESP 12; TEMP 36.4; O2SAT 97
[2019-05-03] MEDS: TETRACAINE 0.5% OPHTH DROPS 4 ML 2 DROPS EYE-OP (12:00)
[2019-05-03] MEDS: BALANCED SALT IRRIG SOLN NO.2 15 ML 5 ML IRR (12:17)
[2019-05-03] MEDS: CHONDROIDTIN/SOD HYALURONATE 1.05 ML SYRINGE INTRAOCULA (12:18)
[2019-05-03] MEDS: MOXIFLOXACIN INJ 5 MG/ML VIAL EYE-OP (12:18)
[2019-05-03] MEDS: LIDOCAINE 2% INJ SDV 2 ML INJ (12:18)
[2019-05-03] MEDS: PHENYLEPHRINE/LIDOCAINE VIAL (OR) 0.2 ML EYE-OP (12:19)
[2019-05-03] MEDS: BALANCED SALT IRRIG SOLN NO.2 500 ML, EPINEPHrine 1 MG IRR (12:20)
--- NOTE | 2019-05-03 12:37 | PM.OP.1 ---
Procedure & Clinicians Procedure: Cataract extraction with intraocular lens implant, right. Same procedure as scheduled: Yes Indications: Visually significant age related nuclear sclerosis, right Surgeon: Kenneth García Click Yes if Unassisted: Yes Anesthesia Type: MAC +/- Operative Notes Procedure in detail: The patient was brought to the operating suite. The correct patient, surgical site and lens were confirmed. 0.5 % tetracaine drops were placed in the right eye and the eye was marked with a cornea reference marker. The patient was prepped and draped in the typical sterile manner. A lid speculum was placed in the eye. 2% lidocaine was placed on the eye. A paracentesis port was created with a side-port blade. 0.1 mL of 1% preservative free lidocaine with phenylephrine was injected into the anterior chamber. Viscoelastic was injected into the anterior chamber. A 2.6mm keratome was used to create a clear corneal temporal incision. Cystotome and Utrata forceps were used to create a continuous curvilinear capsulorrhexis. Balanced salt solution was used to hydrodissect the nucleus. Phacoemulsification was used to remove the lens. The capsular bag was inflated with viscoelastic and the cornea was marked at 009 degrees. A SiVerion [id number] +20.5D lens was inserted into the capsule and rotated to 009 degrees. Viscoelastic was removed and the wound hydrated. The wound was found to be leak free and the eye was assessed to be at normal physiologic pressure. 0.1mL Moxifloxacin (5mg/mL) preservative free was injected into the anterior chamber. The lens was confirmed to be in good position at 0096 degrees. The lid speculum was removed and the patient left the operating room in excellent condition. Complications: none Post-operative Condition: stable Disposition: same day surgery
[2019-05-03 12:55] VITALS: BP 154/55; PULSE 43; RESP 16; TEMP 36.4; O2SAT 94
== END 2019-05-03 12:58 | disposition home or self-care (01) ==
LOC: OR 10:14
PROVIDERS: PCP Family Medicine; Referring Provider Ophthalmology; Visit Provider Ophthalmology
PROC: (CPT 66984; principal; 2019-05-03 11:15)
DX: H25.11 Age-related nuclear cataract, right eye (principal); H40.013 Open angle with borderline findings, low risk, bilateral; H04.123 Dry eye syndrome of bilateral lacrimal glands; H35.82 Retinal ischemia
CPT/HCPCS: 66984; J0171; J2250; J3010; V2787

== ENCOUNTER → 2019-05-09 13:42 | Outpatient (CLI) | payer MEDICARE, OTHER, SELFPAY ==
--- NOTE | 2019-05-09 14:35 | DI.MRI.S_ITS ---
PROCEDURE: MR LUMBAR SPINE WO/W CON INDICATIONS: OTHER SYMPTOMS AND SIGNS INVOLVING THE MUSCULOSKEL TECHNIQUE: Noncontrast sagittal T1 spin echo and T2 fast spin echo, sagittal STIR, axial T1 and T2 fast spin echo through the lumbar spine. In cases with scoliosis, additional coronal T2 fast spin echo may be performed. After the administration of contrast, sagittal and axial T1 spin echo with fat saturation through the lumbar spine. COMPARISON: [facility], CR, XR LUMBAR SPINE 2 OR 3 VIEWS, 04/19/2019, 10:31. FINDINGS: Image quality: Excellent. Alignment and curvature: There is normal bony alignment. Bones: Postsurgical changes compatible with L4-L5 posterior and interbody fusion and right L4-L5 laminotomy. No acute vertebral body compression fractures. No suspicious marrow enhancement. Spinal cord: Conus medullaris terminates at the L1 level. Visualized spinal cord demonstrates normal signal, without suspicious enhancement. Paraspinous soft tissues: No paravertebral masses or abnormal enhancement. L1-L2: Loss of disc signal. Minimal, diffuse disc bulge. No central stenosis. No neural foraminal narrowing. No neural compression. L2-L3: Loss of disc signal and height. Moderate, diffuse disc bulge. Mild facet and mild ligamentum flavum hypertrophy. Severe narrowing of the central canal with slight compression of the traversing nerve roots of the cauda equina. Severe bilateral subarticular neural foraminal narrowing with compression of the exiting L2 nerve roots. L3-L4: Loss of disc signal and height. Mild, diffuse disc bulge. Mild bilateral facet hypertrophy. Mild ligamentum flavum hypertrophy. Moderate narrowing of the central canal. Severe right subarticular neural foraminal narrowing with compression of the exiting right L3 nerve root. Moderate left neural foraminal narrowing. L4-L5: Status post fusion. Mild, diffuse disc bulge. Moderate bilateral facet hypertrophy. No central stenosis. Severe right and moderate left neural foraminal narrowing with compression of the exiting right L4 nerve root. L5-S1: Slight loss of disc signal. Minimal, diffuse disc bulge. Mild bilateral facet hypertrophy. No central stenosis. Mild bilateral neural foraminal narrowing. No neural compression. IMPRESSION: 1. Status post L4-L5 fusion and right laminotomy. 2. Multilevel degenerative disc disease. 3. Multilevel facet arthropathy. 4. Severe L2-L3 central canal narrowing with slight compression of the traversing nerve roots the cauda equina. Please correlate with clinical data. 5. Severe bilateral L2-L3 neural foraminal narrowing and compression of the exiting L2 nerve roots. Severe right L3-L4 neural foraminal narrowing with compression of the exiting right L3 nerve root. Severe right L4-L5 neural foraminal narrowing with compression of the exiting right L4 nerve root. 6. No suspicious postcontrast enhancement. Dictated by: Keri Scales MD, PhD on 05/09/2019 at 17:33 Approved by: Keri Scales MD, PhD on 05/09/2019 at 17:39
== END ==
PROVIDERS: PCP Family Medicine; Referring Provider Psychiatry & Neurology Neurology; Visit Provider Psychiatry & Neurology Neurology
DX: R29.898 Other symptoms and signs involving the musculoskeletal system (principal); M51.36 Other intervertebral disc degeneration, lumbar region; M48.061 Spinal stenosis, lumbar region without neurogenic claudication; M47.816 Spondylosis without myelopathy or radiculopathy, lumbar region; M47.817 Spondylosis without myelopathy or radiculopathy, lumbosacral region; Z98.890 Other specified postprocedural states; Z98.1 Arthrodesis status
CPT/HCPCS: 72158; A9579

== ENCOUNTER 2019-05-17 06:59 | Day surgery (SDC) | payer MEDICARE, OTHER, SELFPAY ==
[2019-05-17] MEDS: PROPARACAINE 0.5% OPHTH SOL 2 DROPS EYE-OP (07:52)
[2019-05-17] MEDS: CATARACT EYE COMPOUND (10 DROPS/SYRINGE) 3 DROPS EYE-OP (07:56)
[2019-05-17 07:57] VITALS: BMI 33.8
[2019-05-17 08:01] VITALS: BP 150/57; PULSE 51; RESP 15; TEMP 36.9; O2SAT 96
--- NOTE | 2019-05-17 08:25 | PM.PREOP ---
Pre-operative Note Interval Note History & Physical reviewed/Exam performed by Physician: Yes Changes to H&P: No
[2019-05-17] MEDS: TETRACAINE 0.5% OPHTH DROPS 4 ML 2 DROPS EYE-OP (08:35)
[2019-05-17] MEDS: BALANCED SALT IRRIG SOLN NO.2 15 ML 5 ML IRR (08:50)
[2019-05-17] MEDS: CHONDROIDTIN/SOD HYALURONATE 1.05 ML SYRINGE INTRAOCULA (08:51)
[2019-05-17] MEDS: PHENYLEPHRINE/LIDOCAINE VIAL (OR) 0.2 ML EYE-OP (08:51)
[2019-05-17] MEDS: MOXIFLOXACIN INJ 5 MG/ML VIAL EYE-OP (08:51)
[2019-05-17] MEDS: LIDOCAINE 2% INJ SDV 2 ML INJ (08:51)
[2019-05-17] MEDS: BALANCED SALT IRRIG SOLN NO.2 500 ML, EPINEPHrine 1 MG IRR (08:52)
--- NOTE | 2019-05-17 09:09 | PM.OP.1 ---
Procedure & Clinicians Procedure: Cataract extraction with intraocular lens implant, left. Same procedure as scheduled: Yes Indications: Age related visually significant nuclear sclerosis, left Surgeon: Kenneth García Click Yes if Unassisted: Yes Anesthesia Type: MAC +/- Operative Notes Procedure in detail: The patient was brought to the operating suite. The correct patient, surgical site and lens were confirmed. 0.5 % tetracaine drops were placed in the left eye. The patient was prepped and draped in the typical sterile manner. A lid speculum was placed in the eye. 2% lidocaine was placed on the eye. A paracentesis port was created with a side-port blade. 0.1 mL of 1% preservative free lidocaine with phenylephrine was injected into the anterior chamber. Viscoelastic was injected into the anterior chamber. A 2.6mm keratome was used to create a clear corneal temporal incision. Cystotome and Utrata forceps were used to create a continuous curvilinear capsulorrhexis. Balanced salt solution was used to hydrodissect the nucleus. Phacoemulsification was used to remove the lens. The capsular bag was inflated with viscoelastic. A Jay ZCBOO +21.0D lens was inserted into the capsule. Viscoelastic was removed and the wound hydrated. The wound was found to be leak free and the eye was assessed to be at normal physiologic pressure. 0.1mL Moxifloxacin (5mg/mL) preservative free was injected into the anterior chamber. The lid speculum was removed and the patient left the operating room in excellent condition. Complications: none Post-operative Condition: stable Disposition: same day surgery
[2019-05-17 09:15] VITALS: BP 141/81; PULSE 49; RESP 15; TEMP 36.2; O2SAT 95
== END 2019-05-17 09:26 | disposition home or self-care (01) ==
LOC: OR 07:02
PROVIDERS: PCP Family Medicine; Referring Provider Ophthalmology; Visit Provider Ophthalmology
PROC: (CPT 66984; principal; 2019-05-17 08:15)
DX: H25.12 Age-related nuclear cataract, left eye (principal)
CPT/HCPCS: 66984; J0171; J2250; J3010

== ENCOUNTER 2019-05-25 13:43 | Day surgery (SDC) | payer MEDICARE, OTHER, SELFPAY ==
--- NOTE | 2019-05-25 | PATH_ITS ---
[facility] Accession Number: [id number] . 01 Material submitted: . PART A: colon - CECAL POLYP 2MM PART B: colon - ASCENDING COLON POLYP 2MM . 02 Diagnosis: A. Cecal Polyp 2 mm: Tubular adenoma. . B. Ascending Colon Polyp 2 mm: Tubular adenoma. [facility] 05/28/2019 1545 Local . 02 Electronically signed: . Jacquelin Melissa MD, Pathologist NPI- [id number] . 01 Gross description: . Part A: CECAL POLYP 2MM: Received in formalin is 1 fragment(s) of reddy, soft tissue measuring 0.2 x 0.2 x 0.2 cm submitted entirely in 1 cassette(s) Part B: ASCENDING COLON POLYP 2MM: Received in formalin is 1 fragment(s) of reddy, soft tissue measuring 0.3 x 0.2 x 0.2 cm submitted entirely in 1 cassette(s) /[facility] 05/25/2019 2044 Local . 02 Pathologist provided ICD-10: K63.5 . 02 CPT . 449618, [id number] Performed at: 01 [facility] [address], [place], [place] [id number] MD Travis Mayorga MD Phone: [phone] Performed at: 02 [facility] [address] [place], [place] [id number] MD Monica German MD Phone: [phone]
--- NOTE | 2019-05-25 12:53 | P.HP_ITS ---
History of Present Illness History of Present Illness Date Patient Seen: 05/25/19 Chief complaint: [id number] Narrative: 73 year old male comes in today for consideration of a screening colonoscopy. Last colonoscopy on 05/09/2006 was normal. There have been no lower GI symptoms suggesting disease such as change in bowel habits, bleeding, abdominal pain or anemia. There's been no family history of colon cancer or colon polyps. Overall health issues have been stable, including no major ca rdiac events for at least 6 weeks. PCP: Dr. Dumont Past medical history: Anemia Community-acquired pneumonia BPH Carotid occlusive disease Hypertension Coronary artery disease Hypothyroidism Depression/anxiety Hyperlipidemia Attention deficit disorder GERD Hepatitis-B Hepatitis-C COPD Actinic keratosis Osteoarthritis Sleep apnea Past surgical history: Stent, coronary artery disease, 2012 L4-L5 fusion/laminectomy, 2013 Trigger finger release, 2014 Family history: Noncontributory Social history: to [employer], [employer] nurse practitioner, retired. Patient History Family & Social History Social History: household members spouse Tobacco & Substance use: Smoking Status Former smoker alcohol intake current alcohol intake frequency 0-2 drinks per day Substance Use Type marijuana Meds Home Medications and Allergies Home Medications Medication Instructions Recorded Confirmed Type Resmed Airsense 10 CPAP #1 ea 06/21/18 05/25/19 History amlodipine [Norvasc] 5 mg PO BID 05/03/19 05/25/19 History aspirin [Aspir-81] 81 mg PO DAILY 05/03/19 05/25/19 History betamethasone, augmented 1 applic TOPICAL DAILY PRN 05/03/19 05/25/19 History [Diprolene] bupropion HCl [Wellbutrin XL] 150 mg PO QAM 05/03/19 05/25/19 History clonidine HCl 0.2 mg PO DAILY 05/03/19 05/25/19 History diltiazem HCl [Cardizem CD] 360 mg PO DAILY 05/03/19 05/25/19 History fluticasone furoate [Flonase 1 spray INTRANASAL BID 05/03/19 05/25/19 History Sensimist] fluticasone propion-salmeterol 1 inh INHALATION BID 05/03/19 05/25/19 History [Advair Diskus] furosemide 40 mg PO DAILY 05/03/19 05/25/19 History levothyroxine 150 mcg PO DAILY 05/03/19 05/25/19 History losartan 50 mg PO DAILY 05/03/19 05/25/19 History methylphenidate HCl [Concerta] 54 mg PO QAM 05/03/19 05/25/19 History omeprazole 40 mg PO DAILY 05/03/19 05/25/19 History rosuvastatin [Crestor] 40 mg PO DAILY 05/03/19 05/25/19 History tamsulosin 0.4 mg PO BEDTIME 05/03/19 05/25/19 History Allergies Allergy/AdvReac Type Severity Reaction Status Date / Time tetracycline [TETRACYCLINE] AdvReac Unknown sun Verified 05/17/19 07:52 sensitivity Review of Systems Review of Systems ROS: Yes All systems reviewed with the patient and are negative except as otherwise documented Exam Narrative Exam Narrative: GENERAL: Alert and oriented, appearing stated age and in no acute distress. HEENT: Head normocephalic/atraumatic. LUNGS: Clear to ausculation bilaterally, no wheezes, rhonchi or rales. CV: Normal S1 and S2 with regular rate and rhythm, no audible murmurs, rubs or gallops. ABDOMEN: Soft, non-tender, non-distended, no organomegaly. Positive bowel sounds. EXTREMITIES: No clubbing, cyanosis, or edema. NEURO: Cranial nerves II through XII grossly intact, no focal deficits. PSYCH: Alert and oriented x 3. SKIN: No concerning lesions. Assessment & Plan Assessment & Plan narrative: 1. Screening for colon cancer Plan for colonoscopy. The nature and character of the procedure as well as anticipated results were discussed. The possibility of not completing the procedure was also discussed. Possible complications including aspiration pneumonia, bleeding, perforation and reaction to medications either for sedation or preparation and missed lesions were discussed. Questions were answered and proceeding to the colonoscopy was elected. Informed consent signed. I sincerely appreciate the referral allowing me to participate in this patient's care. Please contact me with any questions or concerns.
--- NOTE | 2019-05-25 12:56 | PM.OP.ENDO ---
Operative Date/Time/Diagnoses Date of procedure: 05/25/19 Time of procedure: 15:04 Pre-op diagnosis: 1. Screening for colon cancer Post-op diagnosis: other (1. Cecal polyp x1, 2 mm, removed with cold biopsy forceps, 2. Ascending polyp 1, 2 mm, removed with cold biopsy forceps ) Procedure & Clinicians Study performed: Colonoscopy Same procedure as scheduled: Yes Indications: 1. Screening for colon cancer Surgeon: Jenny Kohli Procedure Notes SCOAP/Timeout: 15:04 Procedure in detail: ENDOSCOPIST: Jenny Kohli MD Sedation RN: Gricelda Noyola RN Sedation start time: 3:07 p.m. Sedation end time: 3:33 p.m. PROCEDURE: Colonoscopy with biopsy, cold INDICATIONS: 1. Screening for colon cancer MEDICATION: Levsin 0.125 mg sublingual, incremental doses of Versed and fentanyl until appropriate level sedation achieved. ASA CLASS: 2 CECAL WITHDRAWAL TIME: 11 minutes COMPLICATIONS: None. EXTENT OF PROCEDURE: Cecum. QUALITY OF PREP: Good with portions of liquid stool. PROCEDURE: Prior to insertion of the colonoscope, a digital rectal examination was accomplished with circumferential palpation of the distal rectal mucosa without significant findings being noted. The high-definition colonoscope was passed into the rectum in the usual fashion and advanced over to the cecum without difficulty. The ileocecal valve, appendiceal stoma, and medial wall all could be inspected and a 2 mm polyp was seen and removed with cold biopsy forceps. ASCENDING COLON: As the colonoscope was withdrawn, care was taken to expose and inspect the haustral folds and a 2 mm polyp was seen and removed with cold biopsy forceps. HEPATIC FLEXURE: Normal no polyps, diverticula or other abnormalities. TRANSVERSE COLON: Normal no polyps, diverticula or other abnormalities. DESCENDING COLON: Normal no polyps, diverticula or other abnormalities. SIGMOID COLON: Normal no polyps, diverticula or other abnormalities. RECTUM: Normal. J maneuver was produced. There was no significant perianal disease. The J maneuver was broken. The remainder of the rectum was inspected and there was no external hemorrhoid disease. The scope was withdrawn. IMPRESSION: 1. Cecal polyp x1, 2 mm, removed with cold biopsy forceps 2. Ascending polyp x1, 2 mm, removed with cold biopsy forceps PLAN: 1. Follow-up in clinic status post pathology results. The possibility of a missed lesion including a malignancy has been discussed with the patient previously. Potential alarm symptoms have been discussed and should be reported immediately. Scope withdrawal time: 11 Sedation minutes: 26 Complications: none Post-procedure Recommendations: Will call with biopsy results Follow up: weeks (2) Disposition: PACU
[2019-05-25 14:10] VITALS: BP 153/66; PULSE 57; RESP 20; TEMP 36.4; O2SAT 96; BMI 33.0
[2019-05-25] MEDS: SODIUM CHLORIDE 0.9% 1,000 ML 200 ML IV (14:23)
[2019-05-25] MEDS: HYOSCYAMINE 0.125 MG TABLET PO (14:27)
[2019-05-25] MEDS: FLEETS ENEMA 1 EACH PR (14:45)
[2019-05-25] MEDS: MIDAZOLAM 5 MG/5 ML VIAL IV (15:30)
[2019-05-25] MEDS: fentaNYL 250 MCG/5 ML INJ IV (15:30)
[2019-05-25 15:35] VITALS: BP 164/55; PULSE 56; RESP 16; TEMP 37.3; O2SAT 96
[2019-05-25 15:40] VITALS: BP 147/63; PULSE 63; RESP 16; O2SAT 96
[2019-05-25 15:59] VITALS: BP 142/70; PULSE 61; RESP 16; TEMP 36.4; O2SAT 96
== END 2019-05-25 16:06 | disposition home or self-care (01) ==
PROVIDERS: PCP Family Medicine; Referring Provider Student in an Organized Health Care Education/Training Program; Visit Provider Student in an Organized Health Care Education/Training Program
PROC: 0DJD8ZZ Inspection of Lower Intestinal Tract, Via Natural or Artificial Opening Endoscopic (ICD-10-PCS; CPT 45378; principal; 2019-05-25 15:00)
DX: Z12.11 Encounter for screening for malignant neoplasm of colon (principal); I10 Essential (primary) hypertension; I25.10 Atherosclerotic heart disease of native coronary artery without angina pectoris; G47.33 Obstructive sleep apnea (adult) (pediatric); K21.9 Gastro-esophageal reflux disease without esophagitis; J44.9 Chronic obstructive pulmonary disease, unspecified; D12.0 Benign neoplasm of cecum; D12.2 Benign neoplasm of ascending colon
CPT/HCPCS: 45380; J2250; J3010

== ENCOUNTER → 2019-07-16 09:12 | Outpatient (CLI) | payer MEDICARE, OTHER, SELFPAY ==
--- NOTE | 2019-07-16 | DI.ECHO.S_ITS ---
[facility] +---------+ : : [address] : : : : [id number] : : : : Phone: [phone]+ Echocardiogram Report + + :Name: YEHUDA ARANGO Study Date: 07/16/2019 Height: 70 in : :[facility] Weight: 244 lb : : Gender: Male BSA: 2.3 m2 : :: 1945 Age: 74 yrs BP: 160/84 mmHg: :Reason For Study: SHORTNESS OF BREATH : :Ordering Physician: Julián : :Melisa Deras Performed By: Idalmis Robles : :Referring: JULIÁN ROMAN : + + Interpretation Summary The left ventricular ejection fraction is normal. There are no focal wall motion abnormalities. Diastolic parameters suggest a pseudonormalization pattern, consistent with probable elevated filling pressures. The right ventricular systolic pressure is estimated to be at least 36 mmHg based on an estimated right atrial pressure of 3 mm Hg. The left atrium is severely dilated. -Compared to the prior echocardiogram, the left atrial size has increased. Procedure: A two-dimensional transthoracic echocardiogram with color flow and Doppler was performed. The study quality was technically adequate. Comparison is made with the echocardiogram of 08/12/2013. The patient was in sinus bradycardia with heart rates between 54-64 bpm during the exam. The patient had occasional PVCs during the exam. Left Ventricle: The left ventricle is normal in size. Left ventricular wall thickness is borderline increased. The ejection fraction is estimated to be 60-65%. The left ventricular ejection fraction is normal. There are no focal wall motion abnormalities. Diastolic parameters suggest a pseudonormalization pattern, consistent with probable elevated filling pressures. Right Ventricle: The right ventricle is mildly dilated. The right ventricular systolic function is normal. Atria: The left atrium is severely dilated. The right atrium is mildly dilated. There is no Doppler evidence for an interatrial shunt. Mitral Valve: The mitral valve is normal in structure and function. There is mild mitral regurgitation. Aortic Valve: The aortic valve is trileaflet. The aortic valve opens well. There is no aortic valve stenosis. No aortic regurgitation is present. Tricuspid Valve: The tricuspid valve is normal in structure and function. There is mild tricuspid regurgitation. The right ventricular systolic pressure is estimated to be at least 36 mmHg based on an estimated right atrial pressure of 3 mm Hg. Pulmonic Valve: The pulmonic valve is not well seen, but is grossly normal. There is no pulmonic valvular regurgitation. Great Vessels: The aortic root is normal size. The ascending aorta is mildly enlarged. The IVC is of normal diameter and collapses greater than 50% with a sniff. This suggests a low right atrial pressure of 3 mm Hg. Pericardium/ Pleura There is no pericardial effusion. There is no pleural effusion. MMode/2D Measurements & Calculations LVIDd: 5.3 cm LVOT diam: 2.4 cm LVIDs: 3.4 cm Ao root diam: 2.8 cm FS: 35.9 % asc Aorta Diam: 3.4 cm EPSS: 0.31 cm Ao Arch Diam (Prox Trans): 4.3 cm IVSd: 1.1 cm LVPWd: 1.3 cm LV villalobos. diameter/BSA (cm/m^2): 2.3 LV sys. diameter/BSA (cm/m^2): 1.5 LA A2 area: 30.8 cm2 RA long axis: 6.0 cm LA A4 area: 29.4 cm2 RA area: 21.2 cm2 LA length (vol): 6.2 cm RA vol: 63.4 ml LA vol: 125.0 ml RA : 27.9 ml/m2 LA vol index: 55.0 ml/m2 RVD1 (basal): 4.2 cm TAPSE: 2.9 cm Doppler Measurements & Calculations Ao V2 max: 144.2 cm/sec LVOT Max Jose: 153.6 cm/sec Ao V2 mean: 90.0 cm/sec LV V1 max P.4 mmHg Ao max P.3 mmHg LV V1 VTI: 33.1 cm Ao mean P.9 mmHg SANTI(I,D): 4.5 cm2 Ao V2 VTI: 32.9 cm SANTI(V,D): 4.8 cm2 sev ratio: 1.0 SANTI indexed to BSA (cm^2/m^2): 2.0 MV E max jose: 144.6 cm/sec TR max jose: 285.6 cm/sec MV A max jose: 110.3 cm/sec TR max P.6 mmHg MV E/A: 1.3 PA V2 max: 99.9 cm/sec Med Peak E' Jose: 8.6 cm/sec PA V2 mean: 70.1 cm/sec E/E' med: 16.8 PA mean P.3 mmHg Lat Peak E' Jose: 9.7 cm/sec PA pr(Accel): 5.4 mmHg E/E' lat: 14.8 E/e' average: 15.8 MV dec time: 0.22 sec SV(LVOT): 148.0 ml Electronically signed by: Julián Roman M.D. on Reading Physician:07/17/2019 02:24 PM
== END ==
PROVIDERS: PCP Family Medicine; Referring Provider Hospitalist; Visit Provider Hospitalist
DX: I08.1 Rheumatic disorders of both mitral and tricuspid valves (principal); I77.89 Other specified disorders of arteries and arterioles; R06.02 Shortness of breath
CPT/HCPCS: 93306

== ENCOUNTER → 2019-09-17 09:10 | Outpatient (CLI) | payer MEDICARE, OTHER, SELFPAY ==
[2019-09-18 06:50] LABS: COVID19 Sendout Not Detected (Not Detect)
== END ==
PROVIDERS: PCP Family Medicine; Visit Provider Physician Assistant
DX: Z01.812 Encounter for preprocedural laboratory examination (principal)
CPT/HCPCS: 87635

== ENCOUNTER 2019-09-19 13:52 | Day surgery (SDC) | payer MEDICARE, OTHER, SELFPAY ==
[2019-09-13 10:52] VITALS: BMI 32.1
[2019-09-19] VITALS (7 sets, daily range): BP systolic 113–177; BP diastolic 36–60; PULSE 44–56; RESP 6–18; TEMP 36.2–36.9; O2SAT 90–98; BMI 32.1
--- NOTE | 2019-09-19 | DI.RAD.S_ITS ---
PROCEDURE: XR LUMBAR SPINE 2-3V INDICATIONS: MICRO D TECHNIQUE: 2 views of the lumbar spine were acquired. COMPARISON: [facility] [place], CR, XR LUMBAR SPINE 2 OR 3 VIEWS, 04/19/2019, 10:31. FINDINGS: Spot fluoroscopic intraoperative images demonstrate surgical instrument with the tip projecting at the L2-L3, and L3 level. Dictated by: Ez Nixon M.D. on 09/19/2019 at 16:26 Approved by: Ez Nixon M.D. on 09/19/2019 at 16:27
--- NOTE | 2019-09-19 14:23 | PM.PREOP ---
Pre-operative Note COVID-19 COVID-19 status: Negative Result date/Date tested (Pos, Neg/Pending): 09/17/19 Interval Note History & Physical reviewed/Exam performed by Physician: Yes Changes to H&P: No
[2019-09-19] MEDS: GABAPENTIN 300 MG CAPSULE PO (14:25)
[2019-09-19] MEDS: CELECOXIB 200 MG CAPSULE 400 MG PO (14:25)
[2019-09-19] MEDS: ACETAMINOPHEN 325 MG TABLET 975 MG PO (14:25)
[2019-09-19] MEDS: LACTATED RINGERS 1,000 ML 42 ML IV (14:25)
[2019-09-19] MEDS: CEFAZOLIN 2 GM/100 ML FROZ.PIGGY IV (14:54)
--- NOTE | 2019-09-19 15:21 | SUR.OPER ---
Prone on spine table, head in foam head support, padded chest and pelvic supports, gel pad at knees, lower legs supported by pillows; nipples, genitalia and toes free of pressure, arms secured on foam padded arm boards at <90 degrees abduction. Tape over blanket at thigh secured to table.
[2019-09-19] MEDS: BUPIVACAINE 0.25% W/ EPI 30 ML VIAL INJ (15:30)
[2019-09-19] MEDS: methylPREDNISolone acet DEPO 40 MG/ML VIAL INJ (15:30)
--- NOTE | 2019-09-19 15:54 | P.OP_ITS ---
Operative Date/Time/Diagnoses Date of procedure: 09/19/19 Time of procedure: 14:54 Pre-op diagnosis: 1. L2-3, L3-4 spinal stenosis 2. L2-3, L3-4 spondylosis with radiculopathy Post-op diagnosis: same Procedure & Clinicians Procedure: 1. L2-3 laminectomy 2. L3-4 hemilaminectomy 3. Utilization of microsurgical technique and operating microscope Same procedure as scheduled: Yes Indications: Patient has been having chronic back pain and worsening lumbar radiculopathy. Patient had a history of prior fusion surgery and has been doing well until recently. Patient has been having worsening difficulty walking for the last 3 months. Patient failed multiple conservative management with worsening pain weakness and numbness in her lower extremity. Patient has been having difficulty performing activity of daily living. After discussing risks benefits of treatment options, patient elected proceed with surgery. Surgeon: Neeru Gutierrez Bio[employer] Computer Scientist: Radha Grijalva Click Yes if Unassisted: No Anesthesia Type: General Operative Notes Closure Type: primary Specimen(s): none sent Estimated Blood Loss (mL): 10 Blood products transfused: none Procedure in detail: Patient was seen in the preoperative area. Risks and benefits of the surgery was discussed with the patient. Informed consent was obtained from the patient and placed in the chart. Surgical site was marked. Patient was taken to the operative room. General anesthesia was administered. Prophylactic antibiotic was given to the patient less than 30 min before the incision was made. Patient was placed into a prone position on the Dennys table. Patient's back was then prepped and draped in the sterile fashion. Time-out was performed at this time. Using AP and lateral C-arm imaging the interval between L2-3 was identified and marked on patient's back. A 1 inch incision 1 in from midline was made on the right side. The fascia was incised in line with skin incision. Globus MARS retractors was placed inside the incision and docked onto the L2 lamina. Using microsurgical technique and operating microscope, a L2 laminectomy was performed using a Kerrison rongeur. Liagamentum flavum was resected at the site of the laminotomy. Either side of the dura was exposed. Bilateral partial facetcomies was performed to further decompress the lateral recess. After the laminectomy was completed, the area medial lateral superior and inferior to the area of the laminectomy was inspected and explored using a micro curette. No other impinging structure was identified. The mars retractor was then redirected over the L3 lamina. The position of the retractor was confirmed using the portable C-arm imaging. A hemilaminectomy was performed over the L3 lamina on the right side using Kerrison rongeur. Ligament flavum was resected from the side of the little hemilaminectomy to decompress the epidural space and the lateral recess. The wound was then irrigated with sterile normal saline. 40 mg Depo-Medrol was placed into the epidural space. The deep fascia was closed with 1-0 Vicryl. The subcutaneous tissue was closed with 2-0 Vicryl. The skin was closed skin chandler. Patient tolerated the procedure well. There were no complications. Patient was transferred recovery room in stable condition. Complications: none Post-operative Condition: stable Disposition: same day surgery Plan for aftercare: Discharge to home
== END 2019-09-19 17:05 | disposition home or self-care (01) ==
PROVIDERS: PCP Family Medicine; Referring Provider Orthopaedic Surgery Orthopaedic Surgery of the Spine; Visit Provider Orthopaedic Surgery Orthopaedic Surgery of the Spine
PROC: (CPT 63047; principal; 2019-09-19 15:15)
DX: M48.061 Spinal stenosis, lumbar region without neurogenic claudication (principal); M47.26 Other spondylosis with radiculopathy, lumbar region
CPT/HCPCS: 63047; 63030; 72100; 76000; J0330; J0690; J1030; J1100; J2704

== ENCOUNTER 2019-09-30 15:43 | Emergency (ER) | payer MEDICARE, OTHER, SELFPAY ==
[2019-09-30] VITALS (10 sets, daily range): BP systolic 171–216; BP diastolic 73–86; PULSE 59–74; RESP 10–25; TEMP 36.8; O2SAT 95–98; BMI 33.0
--- NOTE | 2019-09-30 15:58 | DI.RAD.S_ITS ---
PROCEDURE: XR CHEST 1V INDICATIONS: chest pain TECHNIQUE: One view of the chest was acquired. COMPARISON: [facility], CR, XR CHEST 2V, 12/19/2018, 11:06. FINDINGS: Surgical changes and devices: None. Lungs and pleura: Lungs are clear. Previously seen areas of atelectasis have resolved in the interim. No pleural effusions or pneumothorax. Mediastinum: Mediastinal contours appear normal. Heart size is normal. Bones and chest wall: No suspicious bony lesions. Overlying soft tissues appear unremarkable. IMPRESSION: No acute cardiopulmonary process is evident. Dictated by: Rogelio Solomon M.D. on 09/30/2019 at 15:37 Approved by: Rogelio Solomon M.D. on 09/30/2019 at 15:39
[2019-09-30 16:10] LABS: Add Manual Diff / Slide Review NO; Basophils Absolute Auto 100 /uL (0-100); Basophils Percent Auto 1.4 % (0-2); Eosinophils Absolute Auto 200 /uL (0-450); Eosinophils Percent Auto 3.4 % (2-4); Hematocrit 36.1 % (41-53); Hemoglobin 12.4 g/dL (13.5-17.5); Lymphocytes Absolute Auto 1100 /uL (1100-4500); Lymphocytes Percent Auto 19.4 % (25-40); Mean Corpuscular HGB Conc 34.4 % (30-36); Mean Corpuscular Hemoglobin 29.1 PG (26-34); Mean Corpuscular Volume 84.7 fL (80-100); Monocytes Absolute Auto 500 /uL (0-900); Neutrophils Absolute Auto 3900 /uL (1500-7000); Neutrophils Percent Auto 66.8 % (50-75); Platelet Count 164 X10^3/uL (150-400); Red Blood Cell Count 4.26 X10^6/uL (4.5-5.9); Red Cell Distribution Width 15.8 % (11.6-14.8); White Blood Cell Count 5.9 X10^3/uL (4.5-11.0)
--- NOTE | 2019-09-30 16:14 | DI.CT.S_ITS ---
PROCEDURE: CT HEAD/BRAIN WO CON INDICATIONS: dizziness r/o TECHNIQUE: Noncontrast 4.5 mm thick angled axial sections acquired from the foramen magnum to the vertex, with coronal and sagittal reformats. For radiation dose reduction, the following was used: automated exposure control, adjustment of mA and/or kV according to patient size. COMPARISON: [facility], CT, CT HEAD/BRAIN WO CON, 02/09/2018, 21:51. FINDINGS: Image quality: Excellent. CSF spaces: Basal cisterns are patent. No extra-axial fluid collections. The ventricles are symmetric in size and shape. Brain: No intracranial bleeds or masses. There is cerebral volume loss for age, with resultant ventricular and sulcal prominence. There are periventricular and deep white matter chronic small vessel ischemic changes. There is intracranial internal carotid artery atherosclerosis. Skull and face: Calvarium and visualized facial bones appear intact, without suspicious lesions. Sinuses: Visualized sinuses demonstrate postsurgical change with minimal mucosal thickening. Small fluid levels noted within the left sphenoid sinus, improved compared to 2018. IMPRESSION: 1. No acute intracranial process. 2. Moderate atrophy and chronic microvascular ischemic changes. Dictated by: Alia Monterroso M.D. on 09/30/2019 at 17:31 Approved by: Alia Monterroso M.D. on 09/30/2019 at 17:34
--- NOTE | 2019-09-30 16:18 | ED.NEUROSD ---
HPI - Neuro Symptoms/Deficit <Jessica MottMIL - Last Filed: 09/30/19 20:38> General Chief Complaint: Neuro Symptoms/Deficit Stated Complaint: thinks had a stroke,dizzy, slurred speech Time Seen by Provider: 09/30/19 15:59 Source: patient Mode of arrival: Ambulatory Limitations: no limitations History of Present Illness HPI Narrative: 74yo male with a history of CHRISTINE, hypertension, Heptatits C (which he reports as cleared) and lumbar laminectomy on 09/19/2019, presents to the emergency department for intermittent episodes of dizziness physically and mentally not feeling well, increased confusion, and muffled speech. Patient states this started about 3 days ago when he picked up his new prescription for his glasses. Patient call Dr. Kohli and he was told to come to the emergency department for evaluation, patient is concerned he may have had a stroke. He denies any history of CVA, states he does have a stent in his carotid artery. states his speech is clear and normal but patient states ?it does not sound clear to me ?, however, patient states his ears feel muffled as well. Patient states the same symptoms of happen a few years ago and then resolved. Patient denies any chest pain, cough, fevers, chills, abdominal pain, vomiting, diarrhea, or any other concerns. Patient has recently seen cardiology for multiple PVCs, he states he has worn a Holter monitor for a month. On Anticoagulants: Yes (81 mg ASA) Related Data Home Medications Medication Instructions Recorded Confirmed Resmed Airsense 10 CPAP #1 ea 06/21/18 05/25/19 Flonase Sensimist 1 spray INTRANASAL BID 05/03/19 09/19/19 amlodipine [Norvasc] 5 mg PO BID 05/03/19 09/19/19 aspirin [Aspir-81] 81 mg PO DAILY 05/03/19 09/19/19 betamethasone, augmented 1 applic TOPICAL DAILY PRN 05/03/19 09/19/19 [Diprolene] bupropion HCl [Wellbutrin XL] 150 mg PO QAM 05/03/19 09/19/19 clonidine HCl 0.2 mg PO DAILY 05/03/19 09/19/19 diltiazem HCl [Cardizem CD] 360 mg PO DAILY 05/03/19 09/19/19 fluticasone propion-salmeterol 1 inh INHALATION BID 05/03/19 09/13/19 [Advair Diskus] furosemide 40 mg PO DAILY 05/03/19 09/19/19 levothyroxine 175 mcg PO DAILY 05/03/19 09/19/19 losartan 50 mg PO DAILY 05/03/19 09/19/19 methylphenidate HCl [Concerta] 54 mg PO QAM 05/03/19 09/13/19 omeprazole 40 mg PO DAILY 05/03/19 09/19/19 rosuvastatin [Crestor] 40 mg PO DAILY 05/03/19 09/19/19 tamsulosin 0.4 mg PO BEDTIME 05/03/19 09/19/19 albuterol sulfate [ProAir HFA] 1 inh INHALATION BID 09/13/19 09/19/19 Previous Rx's Medication Instructions Recorded hydrocodone-acetaminophen [[place]] 1 tab PO Q8H PRN #20 tab 09/19/19 Allergies Allergy/AdvReac Type Severity Reaction Status Date / Time tetracycline [TETRACYCLINE] AdvReac Unknown sun Verified 09/17/19 09:09 sensitivity Review of Systems <MIL Espinal - Last Filed: 09/30/19 20:38> Review of Systems Narrative: REVIEW OF SYSTEMS: GENERAL: Denies fever or chills. HENT: No head trauma, EYES: No loss of vision. CARDIOVASCULAR: No chest pain or syncope. RESPIRATORY: No cough. GASTROINTESTINAL: No nausea, vomiting, diarrhea, or constipation. GENITOURINARY: No flank pain or dysuria. MUSCULOSKELETAL: No pain, weakness, or deformities. INTEGUMENTARY: No rash, lesions, or pruritus. NEURO: No numbness. Complains of not feeling?, see HPI. PSYCH: No behavior or mood changes. Patient History <MIL Espinal - Last Filed: 09/30/19 20:38> Medical History Actinic keratosis (Acute) ADD (attention deficit disorder) (Acute) Anemia (Acute) Anxiety (Acute) Blood glucose elevated (Acute) BPH with urinary obstruction (Acute) CAD (coronary artery disease) (Acute) Carotid artery disease without cerebral infarction (Acute) Chronic sinusitis (Acute) COPD (chronic obstructive pulmonary disease) (Acute) Depression (Acute) Diastolic dysfunction (Acute) Excessive daytime sleepiness (Chronic) Fungal pneumonia (Acute 2018) GERD (gastroesophageal reflux disease) (Acute) Hepatitis B (Acute) Hepatitis C (Acute) HLD (hyperlipidemia) (Acute) HTN (hypertension) (Acute) Hypothyroidism (Acute) Memory changes (Acute) Obstructive sleep apnea of adult (Chronic) Osteoarthritis (Acute) Primary insomnia (Chronic) PVC's (premature ventricular contractions) (Acute) Sinus bradycardia (Acute) Snoring (Chronic) Surgical History History of colonoscopy (Acute 05/25/19) History of lumbar fusion (Acute 2013) Hx of bilateral cataract extraction (Acute 04/2019) Hx of heart artery stent (Acute 2012) Status post trigger finger release (Acute 2014) Social History marital status: household members: spouse Smoking Status: Former smoker alcohol intake: current substance use type: does not use Smoking Status: Former smoker alcohol intake frequency: 0-2 drinks per day Substance Use Type: marijuana Exam <MIL Espinal - Last Filed: 09/30/19 20:38> Initial Vital Signs Initial Vital Signs: Vital Signs Pulse Rate 74 09/30/19 15:48 Blood Pressure 216/86 H 09/30/19 15:48 Pulse Oximetry 95 09/30/19 15:48 PHYSICAL EXAMINATION: GENERAL: Well groomed, alert, and cooperative. Answers questions promptly and appropriately. Vital signs noted. HENT: Normocephalic. Ear canals patent. Oral mucosa is pink and moist. denies any speech changes. EYES: PERRLA, EOMIs, conjunctiva pink, sclera white, no periorbital swelling. NECK: Full ROM, no midline or spinal tenderness. CARDIOVASCULAR: S1 and S2 sounds normal. Regular rate and rhythm, no murmurs, clicks, or bruits. RESPIRATORY: Normal respiratory rate, trachea midline, airway patent. No stridor, nasal flaring or accessory muscle use. Lungs are clear in all hardy without wheeze, rhonchi, or crackles. MUSCULOSKELETAL: Normal gait and coordination. Equal tone and mass bilaterally. Equal strength bilaterally to upper and lower extremities. No spinal tenderness. Patient ambulates around the emergency department in states that he is feeling better, denies dizziness. EXTREMITIES: CMS intact. Moves all extremities. SKIN: Warm, dry, soft, appropriate color for ethnicity. No lesions, rashes, or wounds to visualized areas. NEURO: Alert and Oriented X 3. GCS: 15. Good coordination. No ataxia, or sensory deficits, or cognitive issues. Cranial Nerves: II: Visual hardy grossly intact. III & IV & : EOMIs V: Able to open and close jaw. VII: Facial movements symetrical. Able to close eyelids tightly. VIII: Hearing grossly intact, adequate balance. X: Uvula pronation intact. XI: Patient is able to shrug shoulders. XII: Patient is able to stick out tongue and move it side to side. PSYCH: Appropriate affect and mood. <Asmita Gonzalez DO - Last Filed: 10/01/19 07:47> Initial Vital Signs Initial Vital Signs: Vital Signs Pulse Rate 74 09/30/19 15:48 Blood Pressure 216/86 H 09/30/19 15:48 Pulse Oximetry 95 09/30/19 15:48 Scores <MIL Espinal - Last Filed: 09/30/19 20:38> ABCD2 Age >= 60 years: yes Initial BP. Either SBP >= 140 or DBP >= 90.: yes Clinical features of the TIA: other symptoms Duration of symptoms: < 10 minutes History of diabetes: no ABCD2 Score: 2 NIH Stroke Scale Level of Conciousness: Alert, keenly responsive Ask month/age: Answers both questions correctly. Open/close eyes, close hand: Performs both tasks correctly Best gaze horizontal: Normal Visual hardy: No visual loss Facial palsy: Normal symetrical movement Left arm drift: No drift for full 10 sec Right arm drift: No drift for full 10 sec Left leg drift: No drift for full 10 sec Right leg drift: No drift for full 10 sec Limb ataxia: Absent Sensory on face/arms/legs: Normal, no sensory loss Best language: No aphasia, normal Dysarthria: Normal Extinction or inattention: No abnormality Total NIH Stroke scale score: 0 Course <MIL Espinal - Last Filed: 09/30/19 20:38> Course Course Narrative: 1800: Patient ambulated around the department, states he was feeling better while walking. Denies any increased dizziness, shortness of breath, or chest pain or exercise intolerance. 1836: Upon re-evaluation of patient, patient states ?the symptoms have been going on for years and a seen and neurologist and he cannot even tell me what was going on. I was helping you could tell me was going on today. Is use miss symptoms all started after taking the medication for treating hepatitis-C ?. Orders Ordered: ED Orders 09/30/19 15:54 EKG-12 Lead Stat 09/30/19 15:58 XR chest 1V Stat 09/30/19 15:59 Complete Blood Count AUTO DIFF Stat Comprehensive Metabolic Panel Stat Lipase Stat Partial Thromboplastin Time Stat Prothrombin Time INR Stat Troponin & CK Cardiac Panel Stat 09/30/19 16:14 CT head/brain wo con Stat Consultations Consultation #1: Patient staffed with Dr. Gonzalez, discussed test, test results, and plan of care. Vital Signs Vital signs: Vital Signs - 8 hr 09/30/19 15:48 09/30/19 15:50 09/30/19 16:00 Temperature 98.2 F Pulse Rate 74 68 63 Respiratory Rate 25 H Blood Pressure 216/86 H 216/86 H Pulse Oximetry 95 95 98 09/30/19 16:30 09/30/19 17:07 09/30/19 17:18 Temperature Pulse Rate 60 62 59 L Respiratory Rate 14 12 Blood Pressure 171/73 H Pulse Oximetry 97 97 98 09/30/19 17:30 09/30/19 18:00 09/30/19 18:01 Temperature Pulse Rate 59 L 60 60 Respiratory Rate 14 11 L 19 Blood Pressure 171/76 H Pulse Oximetry 98 98 98 09/30/19 19:06 Temperature Pulse Rate 59 L Respiratory Rate 10 L Blood Pressure 176/77 H Pulse Oximetry 97 <Asmita Gonzalez, DO - Last Filed: 10/01/19 07:47> Orders Ordered: ED Orders 09/30/19 15:54 EKG-12 Lead Stat 09/30/19 15:58 XR chest 1V Stat 09/30/19 15:59 Complete Blood Count AUTO DIFF Stat Comprehensive Metabolic Panel Stat Lipase Stat Partial Thromboplastin Time Stat Prothrombin Time INR Stat Troponin & CK Cardiac Panel Stat 09/30/19 16:14 CT head/brain wo con Stat Vital Signs Vital signs: Vital Signs - 8 hr 09/30/19 15:48 09/30/19 15:50 09/30/19 16:00 Temperature 98.2 F Pulse Rate 74 68 63 Respiratory Rate 25 H Blood Pressure 216/86 H 216/86 H Pulse Oximetry 95 95 98 09/30/19 16:30 09/30/19 17:07 09/30/19 17:18 Temperature Pulse Rate 60 62 59 L Respiratory Rate 14 12 Blood Pressure 171/73 H Pulse Oximetry 97 97 98 09/30/19 17:30 09/30/19 18:00 09/30/19 18:01 Temperature Pulse Rate 59 L 60 60 Respiratory Rate 14 11 L 19 Blood Pressure 171/76 H Pulse Oximetry 98 98 98 09/30/19 19:06 Temperature Pulse Rate 59 L Respiratory Rate 10 L Blood Pressure 176/77 H Pulse Oximetry 97 MDM - Neuro Symptoms/Deficit <MIL Espinal - Last Filed: 09/30/19 20:38> Medical Records Attestation: I reviewed the patient's medical records. Lab Data Attestation: I reviewed the patient's lab results. Result diagrams: 09/30/19 15:59 09/30/19 15:59 Labs: Lab Results 09/30/19 09/30/19 09/30/19 Range/Units 15:59 15:59 15:59 WBC 5.9 (4.5-11.0) X10^3/uL RBC 4.26 L (4.5-5.9) X10^6/uL Hgb 12.4 L (13.5-17.5) g/dL Hct 36.1 L (41-53) % MCV 84.7 (80-100) fL MCH 29.1 (26-34) PG MCHC 34.4 (30-36) % RDW 15.8 H (11.6-14.8) % Plt Count 164 (150-400) X10^3/uL Neut % (Auto) 66.8 (50-75) % Lymph % (Auto) 19.4 L (25-40) % [place] % (Auto) 9.0 (3-14) % Eos % (Auto) 3.4 (2-4) % Baso % (Auto) 1.4 (0-2) % Neut # (Auto) 3900 (6892-3210) /uL Lymph # (Auto) 1100 (0362-1505) /uL [place] # (Auto) 500 (0-900) /uL Eos # (Auto) 200 (0-450) /uL Baso # (Auto) 100 (0-100) /uL PT 10.8 (10.1-12.7) SECONDS INR 0.9 (0.9-1.3) APTT 30 (26.4-36.2) SECONDS Sodium 139 (137-145) mmol/L Potassium 3.8 (3.4-5.1) mmol/L Chloride 103 (98-107) mmol/L Carbon Dioxide 25 (22-32) mmol/L BUN 38 H (9-20) mg/dL Creatinine 1.21 (0.66-1.25) mg/dL Estimated GFR 58.5 L (>60) mL/min BUN/Creatinine Ratio 31.4 H (6-22) Glucose 109 (80-110) mg/dL Calcium 9.3 (8.4-10.2) mg/dL Total Bilirubin 0.6 (0.2-1.3) mg/dL AST 40 (17-59) IU/L ALT 26 (<50) IU/L Alkaline Phosphatase 94 (38-126) U/L Total Creatine Kinase 272 H (55-170) U/L CK-MB (CK-2) 3.77 H (<2.37) ng/mL CK-MB (CK-2) Rel Index 1.4 L (1.5-5.0) % Troponin I < 0.012 (0.01-0.034) ng/mL Total Protein 7.7 (6.3-8.2) g/dL Albumin 4.6 (3.5-5.0) g/dL Globulin 3.1 (1.7-4.1) g/dL Albumin/Globulin Ratio 1.5 (1.0-2.8) Lipase 85 (23-300) U/L Urine Dip Bedside Urine Glucose Negative Bedside Urine Bilirubin - Negative Bedside Urine Ketone - Negative Urine Specific [place] 1.015 Bedside Urine Occult Blood - Negative Bedside Urine pH 6.0 Bedside Urine Protein +/- 15 Bedside Urine Urobilinogen - Negative Bedside Urine Nitrite - Negative Bedside Urine Leukocytes - Negative Esterase Imaging Data CT scan - head: Radiologist's Impression: [address] [address] [address] Scan Report Signed Patient: ReeseJose [facility]#: [id number] : 5Acct:[id number] Age/Sex: 74 / MDate of Service: 09/30/19 Loc: ED Accession Number: [id number] Procedure: CT head/brain wo con Ordering Provider: Jessica Mott PROCEDURE: CT HEAD/BRAIN WO CON INDICATIONS: dizziness r/o TECHNIQUE: Noncontrast 4.5 mm thick angled axial sections acquired from the foramen magnum to the vertex, with coronal and sagittal reformats. For radiation dose reduction, the following was used: automated exposure control, adjustment of mA and/or kV according to patient size. COMPARISON: [facility], CT, CT HEAD/BRAIN WO CON, 02/09/2018, 21:51. FINDINGS: Image quality: Excellent. CSF spaces: Basal cisterns are patent. No extra-axial fluid collections. The ventricles are symmetric in size and shape. Brain: No intracranial bleeds or masses. There is cerebral volume loss for age, with resultant ventricular and sulcal prominence. There are periventricular and deep white matter chronic small vessel ischemic changes. There is intracranial internal carotid artery atherosclerosis. Skull and face: Calvarium and visualized facial bones appear intact, without suspicious lesions. Sinuses: Visualized sinuses demonstrate postsurgical change with minimal mucosal thickening. Small fluid levels noted within the left sphenoid sinus, improved compared to 2018. IMPRESSION: 1. No acute intracranial process. 2. Moderate atrophy and chronic microvascular ischemic changes. Dictated by: Alia Monterroso M.D. on 09/30/2019 at 17:31 Approved by: Alia Monterroso M.D. on 09/30/2019 at 17:34 Chest x-ray: Radiologist's Impression: [address] [address] XRay Report Signed Patient: Jose Leigh [facility]#: [id number] : 5Acct:[id number] Age/Sex: 74 / MDate of Service: 09/30/19 Loc: ED Accession Number: [id number] Procedure: XR chest 1V Ordering Provider: Asmita Gonzalez D.O. PROCEDURE: XR CHEST 1V INDICATIONS: chest pain TECHNIQUE: One view of the chest was acquired. COMPARISON: [facility], CR, XR CHEST 2V, 12/19/2018, 11:06. FINDINGS: Surgical changes and devices: None. Lungs and pleura: Lungs are clear. Previously seen areas of atelectasis have resolved in the interim. No pleural effusions or pneumothorax. Mediastinum: Mediastinal contours appear normal. Heart size is normal. Bones and chest wall: No suspicious bony lesions. Overlying soft tissues appear unremarkable. IMPRESSION: No acute cardiopulmonary process is evident. Dictated by: Rogelio Solomon M.D. on 09/30/2019 at 15:37 Approved by: Rogelio Solomon M.D. on 09/30/2019 at 15:39 ECG Data Interpretation: 1554: Sinus bradycardia, rate 58, AR interval 212, QTC 472, no ST elevation or ST depression. Occasional PVC noted. EKG also viewed by Dr. Gonzalez. [facility] Narrative Medical decision making narrative: 74 year old male with history of COPD, OCD, laminectomy, presents emergency department for dizziness. Upon further history and evaluation the patient, this has been going on for years. Patient reported feeling better when ambulating around the room. Less concern for CVA or TIA due to lack of focal weakness, NIH score of 0, ABCD2 score of 2, and ongoing symptoms the past few years. Less likely cardiac etiology due to lack of concerning symptoms such as chest pain, negative troponin, EKG with occasional PVCs which is been known, patient recently wore a Holter monitor for the past month and followed up with Cardiology a few weeks ago, chest x-rays negative. Less likely infection due to lack of white blood cell count, no suspicious infectious origin such as skin lesions or productive cough. Less likely vertigo, however due to ear fullness this may be contributing but patient denies feelings of the room spinning. It is possible that patient's COPD may be contributing to his symptoms, however he is hemodynamically stable, non hypoxic, no cough or dyspnea noted throughout the stay. Patient was encouraged to follow up with his primary care provider in the next week for further evaluation. Return precautions given for new or worsening symptoms. Patient agreed to plan of care verbalized understanding. <Asmita Gonzalez, - Last Filed: 10/01/19 07:47> Lab Data Labs: Lab Results 09/30/19 09/30/19 09/30/19 Range/Units 15:59 15:59 15:59 WBC 5.9 (4.5-11.0) X10^3/uL RBC 4.26 L (4.5-5.9) X10^6/uL Hgb 12.4 L (13.5-17.5) g/dL Hct 36.1 L (41-53) % MCV 84.7 (80-100) fL MCH 29.1 (26-34) PG MCHC 34.4 (30-36) % RDW 15.8 H (11.6-14.8) % Plt Count 164 (150-400) X10^3/uL Neut % (Auto) 66.8 (50-75) % Lymph % (Auto) 19.4 L (25-40) % [place] % (Auto) 9.0 (3-14) % Eos % (Auto) 3.4 (2-4) % Baso % (Auto) 1.4 (0-2) % Neut # (Auto) 3900 (4509-6002) /uL Lymph # (Auto) 1100 (7287-3911) /uL [place] # (Auto) 500 (0-900) /uL Eos # (Auto) 200 (0-450) /uL Baso # (Auto) 100 (0-100) /uL PT 10.8 (10.1-12.7) SECONDS INR 0.9 (0.9-1.3) APTT 30 (26.4-36.2) SECONDS Sodium 139 (137-145) mmol/L Potassium 3.8 (3.4-5.1) mmol/L Chloride 103 (98-107) mmol/L Carbon Dioxide 25 (22-32) mmol/L BUN 38 H (9-20) mg/dL Creatinine 1.21 (0.66-1.25) mg/dL Estimated GFR 58.5 L (>60) mL/min BUN/Creatinine Ratio 31.4 H (6-22) Glucose 109 (80-110) mg/dL Calcium 9.3 (8.4-10.2) mg/dL Total Bilirubin 0.6 (0.2-1.3) mg/dL AST 40 (17-59) IU/L ALT 26 (<50) IU/L Alkaline Phosphatase 94 (38-126) U/L Total Creatine Kinase 272 H (55-170) U/L CK-MB (CK-2) 3.77 H (<2.37) ng/mL CK-MB (CK-2) Rel Index 1.4 L (1.5-5.0) % Troponin I < 0.012 (0.01-0.034) ng/mL Total Protein 7.7 (6.3-8.2) g/dL Albumin 4.6 (3.5-5.0) g/dL Globulin 3.1 (1.7-4.1) g/dL Albumin/Globulin Ratio 1.5 (1.0-2.8) Lipase 85 (23-300) U/L Urine Dip Bedside Urine Glucose Negative Bedside Urine Bilirubin - Negative Bedside Urine Ketone - Negative Urine Specific [place] 1.015 Bedside Urine Occult Blood - Negative Bedside Urine pH 6.0 Bedside Urine Protein +/- 15 Bedside Urine Urobilinogen - Negative Bedside Urine Nitrite - Negative Bedside Urine Leukocytes - Negative Esterase ECG Data Attestation: I personally reviewed and interpreted this ECG as follows: Prior ECG tracings: available for review Interpretation: Sinus rhythm rate 58 with PVCs right bundle branch block noted p.r. interval 212, right bundle-branch block was previously present in 2018 however 1st degree AV block is new Discharge Plan Departure Patient Disposition: Home Clinical Impression: Dizziness Discharge Date/Time: 09/30/19 19:05 Instructions: DI for Dizziness-Nonvertigo Activity Restrictions/Additional Instructions: Thank you for entrusting me with your care today. As discussed, your head CT, chest x-ray, EKG, and laboratory work are non-remarkable. Your exam was non concerning for neurological deficits that would be concerning for a stroke or TIA, no indication of cardiac issues other than your known trigeminy. I am unsure the exact cause of your symptoms that I encourage you to follow-up with your primary care provider in the next 1-2 weeks for further discussion and evaluation of symptoms. Return emergency department for any new or worsening symptoms such as chest pain, shortness of breath, syncope, high fevers, or any other concerns. Prescriptions: No Action losartan 50 mg tablet 50 mg PO DAILY RF: 0 fluticasone propion-salmeterol [Advair Diskus] 250-50 mcg/dose Blister With Device 1 inh INHALATION BID RF: 0 methylphenidate HCl [Concerta] 54 mg Tablet Extended Release 24hr 54 mg PO QAM RF: 0 diltiazem HCl [Cardizem CD] 360 mg Capsule,Extended Release 24hr 360 mg PO DAILY RF: 0 amlodipine [Norvasc] 5 mg Tablet 5 mg PO BID RF: 0 omeprazole 40 mg Capsule,Delayed Release(Dr/Ec) 40 mg PO DAILY RF: 0 aspirin [Aspir-81] 81 mg Tablet,Delayed Release (Dr/Ec) 81 mg PO DAILY RF: 0 clonidine HCl 0.2 mg tablet 0.2 mg PO DAILY RF: 0 tamsulosin 0.4 mg Capsule 0.4 mg PO BEDTIME RF: 0 betamethasone, augmented [Diprolene] 0.05 % Ointment 1 applic TOPICAL DAILY PRN (Reason: Rash) RF: 0 furosemide 20 mg tablet 40 mg PO DAILY RF: 0 rosuvastatin [Crestor] 40 mg Tablet 40 mg PO DAILY RF: 0 bupropion HCl [Wellbutrin XL] 150 mg Tablet Extended Release 24 Hr 150 mg PO QAM RF: 0 Flonase Sensimist 27.5 mcg/actuation [place],Suspension 1 spray INTRANASAL BID RF: 0 levothyroxine 150 mcg Capsule 175 mcg PO DAILY RF: 0 albuterol sulfate [ProAir HFA] 90 mcg/actuation Hfa Aerosol Inhaler 1 inh INHALATION BID RF: 0 hydrocodone-acetaminophen [[place]] 5-325 mg tablet 1 tab PO Q8H PRN (Reason: pain) Qty: 20 RF: 0 (DME) Resmed Airsense 10 CPAP Qty: 1 RF: 0 Referrals: Thiago Dumont MD [Primary Care Provider] - <Asmita Gonzalez DO - Last Filed: 10/01/19 07:47> Cosign ED Attending Dario Attestation: I was immediately available in the department for consultation. Documentation has been reviewed. I agree with assessment and plan.
[2019-09-30 16:22] LABS: INR 0.9 (0.9-1.3); Prothrombin Time 10.8 SECONDS (10.1-12.7)
[2019-09-30 16:24] LABS: PTT Partial Thromboplastin Tim 30 SECONDS (26.4-36.2)
[2019-09-30 16:26] LABS: Alanine Aminotransferase 26 IU/L (<50); Albumin 4.6 g/dL (3.5-5.0); Albumin Globulin Ratio 1.5 (1.0-2.8); Alkaline Phosphatase 94 U/L (38-126); Aspartate Aminotransferase 40 IU/L (17-59); BUN Creatinine Ratio 31.4 (6-22); Bilirubin Total 0.6 mg/dL (0.2-1.3); Blood Urea Nitrogen 38 mg/dL (9-20); Calcium 9.3 mg/dL (8.4-10.2); Carbon Dioxide 25 mmol/L (22-32); Chloride 103 mmol/L (98-107); Creatine Kinase 272 U/L (55-170); Estimated Glomerular Filt Rate 58.5 mL/min (>60); Globulin 3.1 g/dL (1.7-4.1); Glucose 109 mg/dL (80-110); HEMOLYSIS < 15 (0-50); Lipase 85 U/L (23-300); Potassium 3.8 mmol/L (3.4-5.1); Sodium 139 mmol/L (137-145); Total Protein 7.7 g/dL (6.3-8.2)
[2019-09-30 16:37] LABS: Troponin I < 0.012 ng/mL (0.01-0.034)
[2019-09-30 16:41] LABS: CKMB % Relative Index 1.4 % (1.5-5.0); Creatine Kinase MB 3.77 ng/mL (<2.37)
--- NOTE | 2019-09-30 18:19 | PC.NURSE ---
ambulated patient in the department, when we got back to the room patients sats were 86% pt quickly recovered without assistance, pt up to 96% sats on room air.
== END 2019-09-30 19:05 | disposition home or self-care (01) ==
PROVIDERS: Emergency Medicine; Emergency Provider Nurse Practitioner; PCP Family Medicine
DX: R42 Dizziness and giddiness (principal); I10 Essential (primary) hypertension; R07.9 Chest pain, unspecified
CPT/HCPCS: 36415; 70450; 71045; 80053; 81003; 82550; 82553; 83690; 84484; 85025; 85610; 85730; 93005; 93010; 99284; 99285

== ENCOUNTER → 2019-10-10 12:43 | Outpatient (CLI) | payer MEDICARE, OTHER, SELFPAY ==
--- NOTE | 2019-10-10 | DI.MRI.S_ITS ---
PROCEDURE: MR HEAD/BRAIN WO/W CON INDICATIONS: Other symptoms and signs involving cognitive functions TECHNIQUE: Noncontrast axial T1 spin echo, axial T2 fast spin echo, sagittal and axial FLAIR, coronal T2 fast spin echo, axial gradient echo, axial diffusion and ADC through the brain. After the administration of contrast, axial and coronal T1 spin echo with fat saturation through the brain. COMPARISON: [facility], MR, MR STROKE, 02/15/2018, 19:00. FINDINGS: Image quality: Excellent. CSF spaces: Basal cisterns are patent. No extra-axial fluid collections. Ventricles are normal in size and shape. Brain: No midline shift. No intracranial bleeds or masses. No abnormal intracranial enhancement. There is cerebral volume loss for age. There is periventricular white matter chronic small vessel ischemic change. The brainstem appears normal. Diffusion-weighted images demonstrate no acute ischemic insults. No chronic ischemic insults. Normal intravascular flow voids are present. Skull and face: Calvarial marrow is normal in signal. Orbits appear normal. Sinuses: Mild mucosal thickening in the bilateral maxillary sinuses. Moderate mucosal thickening in the left sphenoid sinus. Mastoids clear. IMPRESSION: 1. Volume loss and small vessel ischemic disease. 2. Sinus disease. 3. No acute process. No recent infarct. Dictated by: Juanis aLzaro M.D. on 10/10/2019 at 13:04 Approved by: Juanis Lazaro M.D. on 10/10/2019 at 13:14
== END ==
PROVIDERS: PCP Family Medicine; Referring Provider Family Medicine; Visit Provider Family Medicine
DX: R41.89 Other symptoms and signs involving cognitive functions and awareness (principal); J32.8 Other chronic sinusitis
CPT/HCPCS: 70553; A9579

== ENCOUNTER → 2019-11-19 13:50 | Outpatient (CLI) | payer MEDICARE, OTHER, SELFPAY ==
--- NOTE | 2019-11-19 14:10 | DI.ECHO.S_ITS ---
Echocardiogram Report + + :Name: YEHUDA ARANGO Study Date: 11/19/2019 Height: 70 in : :[facility] Weight: 244 lb : : Gender: Male BSA: 2.3 m2 : :: 1945 Age: 74 yrs BP: 178/64 mmHg: :Reason For Study: SHORTNESS OF BREATH : :Ordering Physician: JESSIE, : :JULIÁN Performed By: Idalmis Robles : :Referring: JULIÁN ROMAN : + + Interpretation Summary The patient was in sinus bradycardia with heart rates between 43-52 bpm during the exam. The left ventricular ejection fraction is normal. There are no obvious focal wall motion abnormalities noted but poor endocardial definition reduces the sensitivity for the detection of such. Diastolic parameters suggest a relaxation abnormality of the left ventricle, consistent with probable normal filling pressures. The right ventricle is mildly dilated. The right ventricular systolic function is normal. Pulmonary artery pressures cannot be estimated because of the lack of a measurable TR jet velocity but the IVC suggests a CVP of around 3 mmHg. The left atrium is moderately dilated. -Compared to the prior echo, diastolic function has improved, LA size is smaller. Procedure: A two-dimensional transthoracic echocardiogram with color flow and Doppler was performed. The study quality was technically adequate. Comparison is made with the echocardiogram of 07/16/2019. The patient was in sinus bradycardia with heart rates between 43-52 bpm during the exam. The patient had occasional PVCs during the exam. Left Ventricle: The left ventricle is normal in size. Left ventricular wall thickness is mildly increased. The ejection fraction is estimated to be 60- 65%. The left ventricular ejection fraction is normal. There are no obvious focal wall motion abnormalities noted but poor endocardial definition reduces the sensitivity for the detection of such. Diastolic parameters suggest a relaxation abnormality of the left ventricle, consistent with probable normal filling pressures. Right Ventricle: The right ventricle is mildly dilated. The right ventricular systolic function is normal. Atria: The left atrium is moderately dilated. Right atrial size is normal. There is no Doppler evidence for an interatrial shunt. Mitral Valve: The mitral valve is normal in structure and function. There is mild mitral regurgitation. Aortic Valve: The aortic valve is trileaflet. The aortic valve opens well. The aortic valve is mildly calcified. There is discrete nodular thickening of the non- coronary cusp. There is no aortic valve stenosis. No aortic regurgitation is present. Tricuspid Valve: The tricuspid valve is normal in structure and function. Pulmonary artery pressures cannot be estimated because of the lack of a measurable TR jet velocity but the IVC suggests a CVP of around 3 mmHg. There is trace tricuspid regurgitation. Pulmonic Valve: The pulmonic valve leaflets are thin and pliable; valve motion is normal. There is mild pulmonic regurgitation. Great Vessels: The aortic root is normal size. The ascending aorta is normal in size. The IVC is of normal diameter and collapses greater than 50% with a sniff. This suggests a low right atrial pressure of 3 mm Hg. Pericardium/ Pleura There is no pericardial effusion. There is no pleural effusion. MMode/2D Measurements & Calculations LVIDd: 5.6 cm LVOT diam: 2.2 cm LVIDs: 3.4 cm Ao root diam: 3.1 cm FS: 38.6 % asc Aorta Diam: 3.3 cm EPSS: 0.69 cm Ao Arch Diam (Prox Trans): 4.4 cm IVSd: 1.1 cm LVPWd: 1.2 cm LV villalobos. diameter/BSA (cm/m^2): 2.4 LV sys. diameter/BSA (cm/m^2): 1.5 LA A2 area: 28.0 cm2 RA long axis: 5.4 cm LA A4 area: 23.4 cm2 RA area: 19.0 cm2 LA length (vol): 5.9 cm RA vol: 57.1 ml LA vol: 94.0 ml RA : 25.1 ml/m2 LA vol index: 41.4 ml/m2 IVC diam: 1.2 cm RVD1 (basal): 4.3 cm TAPSE: 1.9 cm Doppler Measurements & Calculations Ao V2 max: 173.6 cm/sec LVOT Max Jose: 138.5 cm/sec Ao V2 mean: 111.9 cm/sec LV V1 max P.7 mmHg Ao max P.1 mmHg LV V1 VTI: 31.1 cm Ao mean P.9 mmHg SANTI(I,D): 3.0 cm2 Ao V2 VTI: 40.0 cm SANTI(V,D): 3.1 cm2 sev ratio: 0.78 SANTI indexed to BSA (cm^2/m^2): 1.3 MV E max jose: 95.8 cm/sec SV(LVOT): 118.8 ml MV A max jose: 97.7 cm/sec MV E/A: 0.98 Med Peak E' Jose: 6.1 cm/sec E/E' med: 15.6 Lat Peak E' Jose: 9.0 cm/sec E/E' lat: 10.6 E/e' average: 13.1 MV dec time: 0.28 sec Electronically signed by: Julián Roman M.D. on Reading Physician:11/20/2019 08:45 AM
== END ==
PROVIDERS: PCP Family Medicine; Referring Provider Family Medicine; Visit Provider Hospitalist
DX: I34.0 Nonrheumatic mitral (valve) insufficiency (principal); R06.02 Shortness of breath
CPT/HCPCS: 93306

== ENCOUNTER → 2020-04-29 11:21 | Outpatient (CLI) | payer MEDICARE, OTHER, SELFPAY ==
--- NOTE | 2020-04-29 11:26 | DI.RAD.S_ITS ---
PROCEDURE: XR HIP W PEL IF DONE LT 2V INDICATIONS: LT HIP PAIN TECHNIQUE: AP pelvis and frogleg lateral view of the left hip. COMPARISON: None. FINDINGS: Bones: No acute fractures or dislocations. Pelvic ring appears intact. No suspicious bony lesions. Moderate degenerative changes are seen in the left hip with joint space narrowing and subchondral sclerosis. Moderate degenerative changes are seen in the pubic symphysis. Postsurgical changes are noted in the included lower lumbar spine. Soft tissues: The visualized bowel gas pattern is normal. A small ossification adjacent to the left femoral head may represent a labral ossification or intra-articular loose body. A similar lesion is seen on the contralateral right side. IMPRESSION: 1. Moderate left hip osteoarthrosis. Small ossifications lateral to the bilateral acetabula may represent labral ossifications and or small intra-articular loose bodies. 2. Moderate degenerative changes of the pubic symphysis. 3. Postsurgical changes in the lower lumbar spine. Dictated by: Cash Dixon M.D. on 04/29/2020 at 12:45 Approved by: Cash Dixon M.D. on 04/29/2020 at 12:48
== END ==
PROVIDERS: PCP Family Medicine; Referring Provider Family Medicine; Visit Provider Family Medicine
DX: M25.552 Pain in left hip (principal); M16.12 Unilateral primary osteoarthritis, left hip
CPT/HCPCS: 73502

== ENCOUNTER → 2020-05-20 08:45 | Outpatient (CLI) | payer MEDICARE, OTHER, SELFPAY ==
--- NOTE | 2020-05-20 08:48 | DI.NM.S_ITS ---
PROCEDURE: NM JOSE PERF SPECT R&S PHARM Rest and pharmacological stress myocardial perfusion SPECT with gated imaging and ejection fraction RADIOPHARMACEUTICAL: 14.1 mCi Tc-99m tetrafosmin IV at rest and 24.8 mCi Tc-99m tetrafosmin IV at peak effect of pharmacological stress. [id number]-[id number] was performed. INDICATIONS: Essential (primary) hypertension TECHNIQUE: Radiopharmaceutical was injected at peak stress test, and also at rest. SPECT images were obtained. SPECT myocardial perfusion images were displayed in short axis, horizontal long axis, and vertical long axis views. Gated images were reviewed using [employer]ordoba software. COMPARISON: None. CARDIAC STRESS: A pharmacologic stress test was performed under the supervision of an attending staff, using an infusion of lexiscan 0.4mg IV X1. Hemodynamic data: There is normal blood pressure and heart rate response to pharmacologic stress. Symptoms: The patient denied anginal chest pain. Aminophylline: none EKG: No diagnostic changes of ischemia; frequent PVCs present. FINDINGS: Raw data: There is good myocardial uptake of radiotracer. No significant motion artifacts. Hxsr-mq-ksrro ratio is 0.37 (normal is less than 0.38 for tetrafosmin tracer). Left ventricle function: Gated images demonstrate normal left ventricular wall thickening. No segmental wall motion abnormalities. No transient ischemic dilation; TID is 1.01 (normal less than 1.3). Left ventricle resting end diastolic volume is 103 mL. Left ventricle stress ejection fraction is 63%; normal range is above 45%. Myocardial perfusion: There is normal distribution of activity in the right and left ventricular myocardium. No fixed or reversible perfusion defects. IMPRESSION: Low risk, normal pharmaceutical nuclear stress test 1) No perfusion evidence of ischemia or infarction.l 2) Normal left ventricular size, wall motion, and systolic function (EF post stress 63%). 3) No ECG evidence of ischemia. Frequent PVCs during the study. 4) No angina during the study. 5) Compared to the nuclear stress test done 12/19/2017, no significant change. Dictated by: Chino Watson MD on 05/20/2020 at 18:24 Approved by: Chino Watson MD on 05/20/2020 at 18:27
[2020-05-20 09:59] LABS: COVID19 -Nasal RAPID Negative (Negative)
== END ==
PROVIDERS: PCP Family Medicine; Referring Provider Internal Medicine Cardiovascular Disease; Visit Provider Internal Medicine Cardiovascular Disease
DX: I25.10 Atherosclerotic heart disease of native coronary artery without angina pectoris (principal); I10 Essential (primary) hypertension; I49.3 Ventricular premature depolarization
CPT/HCPCS: 78452; 87635; 93017; A9502; J2785

== ENCOUNTER → 2021-02-23 12:22 | Outpatient (CLI) | payer MEDICARE, OTHER, SELFPAY ==
--- NOTE | 2021-02-23 12:25 | DI.CT.S_ITS ---
PROCEDURE: CT LUMBAR SPINE WO CON INDICATIONS: Spinal stenosis, lumbar region without neurogenic TECHNIQUE: Noncontrast 3 mm thick sections acquired from the T12 level to the sacrum. Sagittal and coronal reformats were constructed. For radiation dose reduction, the following was used: automated exposure control. COMPARISON: [facility], CR, XR LUMBAR SPINE 2 OR 3 VIEWS, 02/17/2021, 9:10. [facility], MR, MR LUMBAR SPINE WO/W CON, 05/09/2019, 14:25. [facility], CT, L-SPINE WITHOUT CONTRAST, 07/04/2015, 14:46. FINDINGS: Image quality: Excellent. Bones: There no visualized osseous fractures or dislocations. No suspicious osseous lesions. Posterior fusion is present at L4-5 with intervertebral spacer and right posterior hemilaminectomy. Hardware is intact without evidence of hardware fracture or periprosthetic lucency to suggest loosening. Multilevel moderate to severe disc space narrowing is present from L1-L2 through L3-4, [id number] at L4-5. Multilevel anterior osteophytes are present most prominently bridging at L1-2 and L2-3. Mild disc bulges are present at L1-L2, L2-3, L3-4, L4-5 and L5-S1. There is moderate to severe spinal stenosis at L2-3, moderate to severe L3-4, slightly progressive, no visualized spinal stenosis at L4-5. There is moderate to severe bilateral foraminal narrowing L2-3, L3-4, moderate bilateral L4-5 and moderate left and mild right L5-S1, slightly progressive on the right. Soft tissues: No retroperitoneal masses or hematomas. Visualized aorta is normal in caliber. IMPRESSION: 1. Multilevel degenerative changes slightly progressive as detailed above. 2. Multilevel foraminal narrowing with multiple levels moderate to severe. This is felt to be predominantly secondary to facet/ligamentum flavum arthropathy. 3. Multilevel spinal stenosis most severe at L2-3 and L3-4 secondary to disc bulge with contributing effect of facet/ligamentum flavum arthropathy Dictated by: Alia Monterroso M.D. on 02/23/2021 at 15:56 Approved by: Alia Monterroso M.D. on 02/23/2021 at 16:04
== END ==
PROVIDERS: PCP Family Medicine; Referring Provider Orthopaedic Surgery Orthopaedic Surgery of the Spine; Visit Provider Orthopaedic Surgery Orthopaedic Surgery of the Spine
DX: M48.061 Spinal stenosis, lumbar region without neurogenic claudication (principal); M48.07 Spinal stenosis, lumbosacral region; M47.816 Spondylosis without myelopathy or radiculopathy, lumbar region; M47.817 Spondylosis without myelopathy or radiculopathy, lumbosacral region
CPT/HCPCS: 72131

== ENCOUNTER → 2021-07-06 10:50 | Outpatient (CLI) | payer MEDICARE, OTHER, SELFPAY ==
[2021-07-06 12:45] LABS: COVID19 -Nasal RAPID Negative (Negative)
== END ==
PROVIDERS: PCP Family Medicine; Visit Provider Family Medicine Sleep Medicine
DX: Z20.822 Contact with and (suspected) exposure to COVID-19 (principal)
CPT/HCPCS: 87635; C9803

== ENCOUNTER 2021-07-08 07:44 | Inpatient (IN) | payer MEDICARE, OTHER, SELFPAY ==
[2021-07-01 09:46] VITALS: BMI 34.1
[2021-07-08] VITALS (19 sets, daily range): BP systolic 138–224; BP diastolic 49–88; PULSE 57–80; RESP 11–18; TEMP 36–36.8; O2SAT 89–99; BMI 34.1
--- NOTE | 2021-07-08 | DI.RAD.S_ITS ---
PROCEDURE: XR LUMBAR SPINE 2-3V INDICATIONS: TLIF L2-L5 TECHNIQUE: 3 low resolution fluoroscopic intraoperative spot films were obtained COMPARISON: [facility], JENNY, XR LUMBAR SPINE 2-3V, 09/19/2019, 15:17. FINDINGS: Low resolution fluoroscopic spot films show multilevel interbody fusion with posterior xiomy and screw instrumentation at L2 through L5. IMPRESSION: Fluoroscopic guidance Approved by: Pineda Solitario M.D. on 07/08/2021 at 14:52
[2021-07-08] MEDS: LACTATED RINGERS 1,000 ML 42 ML IV ×2 (08:17→12:20)
--- NOTE | 2021-07-08 08:43 | PM.PREOP ---
Pre-operative Note COVID-19 COVID-19 status: Negative Result date/Date tested (Pos, Neg/Pending): 07/07/21 Criteria for continued procedure: Expected advancement of disease process, Possibility delay results in more complex future surgery or treatment, Increased loss of function, Continuing or worsening of significant or severe pain, Deterioration of the patient's condition or overall health and Delay expected to result in less-positive ultimate med/surg outcome Interval Note History & Physical reviewed/Exam performed by Physician: Yes Changes to H&P: No
[2021-07-08] MEDS: CEFAZOLIN 2 GM/20 ML SYRINGE IV ×3 (09:05→20:56)
[2021-07-08] MEDS: BUPIVACAINE 0.25% (PF) 60 ML, EPINEPHrine 0.3 MG INJ (10:03)
[2021-07-08] MEDS: BUPIVACAINE LIPOSOME 266 MG/20 ML VIAL INJ (10:03)
--- NOTE | 2021-07-08 14:26 | PM.OP.1 ---
Operative Date/Time/Diagnoses Date of procedure: 07/08/21 Time of procedure: 08:45 Pre-op diagnosis: 1. L4-5 history of fusion 2. L2-3, L3-4 spinal stenosis with neurogenic claudication Post-op diagnosis: same Procedure & Clinicians Procedure: 1. L2-3, L3-4 posterolateral and posterior interbody fusion 2. L2-3, L3-4 posterior interbody cage placement 3. L4-5 posterior non-segmental instrumentation removal 4. L4-5 revision laminectomy with exploration of fusion 5. L2-3, L3-4, L4-5 posterior segmental instrumentation with pedicle screw placement 6. L4-5 posterolatearl fusion 7. Hillrose of bone marrow from iliac crest through a separate incision 8. Utilization of microsurgical technique and operating microscope 9. Utilization of [facility] Same procedure as scheduled: Yes Indications: Patient has been having chronic back pain and worsening lumbar radiculopathy. Patient is status post previous L4-5 level fusion with recent worsening of back pain and left-sided hip pain that is not responding to conservative care. Patient failed multiple conservative management with worsening pain weakness and numbness in his lower extremity. His updated imaging shows progressively worsened adjacent level with severe spinal stenosis and symptoms of neurogenic claudication. He has been having difficulty performing activity of daily living. After discussing risks benefits of treatment options, patient elected proceed with surgery. Surgeon: Neeru Gutierrez Attending Pathologist: Saman Villatoro Click Yes if Unassisted: No Anesthesia Type: General Operative Notes Closure Type: primary Specimen(s): none sent Prosthetic devices, grafts, tissues, transplants, or devices: Globus CREO MIS screws, Rise cages Applied: catheter Estimated Blood Loss (mL): 350 Blood products transfused: none Procedure in detail: Patient was seen in the preoperative area. Risks and benefits of the surgery was discussed with the patient. Informed consent was obtained from the patient and placed in the chart. Surgical site was marked. Patient was taken to the operative room. General anesthesia was administered. Prophylactic antibiotic was given to the patient less than 30 min before the incision was made. Patient was placed into a prone position on the Dennys table. Patient's back was then prepped and draped in the sterile fashion. Time-out was performed at this time. After patient was prepped and draped, patient's PSIS was palpated and marked bilaterally. Small 1 cm incision was made over the PSIS for placement of the reference probes. Two trocar was placed into the PSIS 1 on each side. The reference probe was attached to the trocar of the reference apparatus. At this time the C-arm imaging was used to confirm AP and lateral of L2, L3, L4, L5 vertebrae and merged the C-arm imaging using the [employer] robotic navigation system with the CT of the lumbar spine. After successful merging was completed and confirmed, skin marker was used to aden out the skin incision using the Everlane robotic arm. Bilateral incision was made at this time. Using patient's previous scar incision was made over the L4-5 interval on the left side. Fascia was incised in line with skin incision. Patient's previously placed hardware over the L4-5 level was identified by dissecting down to the level the hardware using a Bovie and a Charles. The locking caps which was removed using [employer] screwdriver. The locking xiomy was then removed from the tulips of the pedicle screws using a Alonso. The pedicle screws were then removed using the screwdriver. The screws were found to have good purchase. The fusion xiomy on the right side at L4-5 level was found to be fractured. The lack of radiographic evidence on CT and x-ray and the non worn and of the fracture rods indicates this is a stress fracture to the hardware. Pre templated trajectory was used and guided using the [employer] navigation system for left L2, L3, L4 pedicle screws and right L2, L3, L4 L5 pedicle screws placement. This was done by using the robotic arm to guide the high-speed bur to make a cortical entry point. Next a drill was placed also using the robotic arm and guided using the navigation system drilling partially through bilateral L2, L3, L4, L5 pedicles. Next L2, L3, L4, L5 pedicle screws it was pre templated and measured was placed onto the power armor reconnaissance vehicle driver and inserted into the pedicles bilaterally. After all 7 screws were placed C-arm imaging was taken of both AP and lateral to confirm the placement. Excellent placement of the screws were confirmed and a matched precisely with the pre planned screw placement using the navigation system. MARs retractor was inserted using [employer] guidence. Globus MARS retractors was placed inside the incision and docked onto the L2 and L3 lamina. Using microsurgical technique and operating microscope, a L2, L3 laminectomy and L2-3, L3-4 facetectomy was performed using a Kerrison rongeur. Patient was found have severe lateral recess and neural foramen stenosis which was fully decompressed after the laminectomy facetectomy. More than 75% of the facets were removed during the process of decompression rendering L2-3, L3-4 level grossly unstable and required a fusion procedure at the same time. The disc space at L2-3, L3-4 was identified, and a total diskectomy was performed at L2-3, L3-4 level. The endplates were decorticated using a rasp and shaver. The total diskectomy and decortication was performed at L2-3, L3-4 level in order to to accomplish a L2-3, L3-4 fusion. The local bone from the laminectomy and facetectomy was saved for local bone grafting. After the total diskectomy and decortication was completed, Trifecta bone graft material was combined with local bone that was harvested earlier. At this time, a separate skin is incision was made over the iliac crest. A Jamshidi needle was inserted into the iliac crest through a separate skin incision. 5 cc of bone marrow aspiration was obtained through the separate skin incision using a Jamshidi needle from the iliac crest. The bone marrow aspiration was combined with local bone and the Trifecta bone grafting material. The bone grafting material was placed into the L2-3, L3-4 interbody space along with a expandable cage. The cage was expanded to its maximum height using the torque limiting screwdriver. The disc preparation as well as the cage insertion were also performed under navigation guidance. After the cage was placed, AP and lateral C-arm imaging was taken to confirm placement of the cage and excellent position was confirmed. The fusion mass on the right side of L4-5 was exposed by performing a right-sided hemilaminectomy at L4-5 level. The hemilaminectomy was performed using the Kerrison rongeur to undercut the lamina as well removing additional epidural scar tissue for purpose of decompressing the epidural space. The fusion mass was explored and was found have visible motion indicating pseudoarthrosis. Globus MARS retractor was inserted and docked onto the L2-3, L3-4, L4-5 posterolateral gutter. Using the power drill, posterior-lateral decortication was performed at L2-3, L3-4, L4-5 level until bleeding cortical bone was identified. The remaining bone grafting material was placed into the L2-3, L3-4, L4-5 posterior lateral gutter he order to accomplish posterolateral fusion at the L2-3, L3-4, L4-5 level. At this time the tulips were attached to the L2, L3, L4-L5 pedicle screw shanks. This was done in L2, L3, L4-L5 pedicles bilaterally. After measuring the length of the rods, they were inserted into the tulips of the pedicle screws and locked in place using locking caps and torque limiting screwdriver bilaterally. Total 7 caps and 2 titanium rods was used in order to complete the posterior instrumentation construct. After all the hardware was placed, and confirmed with AP and lateral C-arm imaging, the wound was then irrigated with sterile normal saline and packed with Ray-Gilbert gauze for 3 min to accomplish hemostasis. After the gauze was removed the deep fascia was closed with #1 Vicryl suture. The subcutaneous layer was closed with 2-0 Vicryl. The skin was closed with skin chandler. Patient tolerated the procedure well. There were no complications. Neuro monitoring system was used to monitor patient's neurologic status throughout entire procedure. There was no disturbance of the neural monitoring signals throughout the case. Complications: none Post-operative Condition: stable Disposition: PACU Plan for aftercare: Admit to inpatient hospital
[2021-07-08] MEDS: OXYCODONE/ACETAMINOPHEN 5/325 TABLET 1 TAB PO (14:56)
[2021-07-08] MEDS: LABETALOL 20 MG/4 ML SYRINGE 10 MG IV (15:25)
--- NOTE | 2021-07-08 15:30 | SUR.PHASEI ---
1455 - BP 224/86. PT DENIES PAIN. RESTS QUIETLY. DR SALAZAR NOTIFIED AND LABETOLOL 10MG IV ORDERED X 1. 1532 REPEAT BP172/57, HR 57.
--- NOTE | 2021-07-08 16:20 | SUR.PHASEI ---
1548 - Transferred to room 215 with cpap, hearing aids, glasses, cane and 1 clothing bag. Placed on 2L 02 per nc in room.
[2021-07-08] MEDS: hydrOXYzine pamoate 25 MG CAPSULE PO ×2 (16:36→23:13)
[2021-07-08] MEDS: ACETAMINOPHEN 325 MG TABLET 650 MG PO ×2 (16:36→23:13)
[2021-07-08] MEDS: OXYCODONE IR 5 MG TABLET 10 MG PO ×2 (16:37→21:04)
[2021-07-08] MEDS: HYDROMORPHONE 0.5 MG INJ IV ×2 (16:37→23:14)
[2021-07-08] MEDS: SODIUM CHLORIDE 0.9% 1,000 ML 100 ML IV (16:41)
[2021-07-08] MEDS: AMLODIPINE 5 MG TABLET PO (20:55)
[2021-07-08] MEDS: ISOSORBIDE MONONITRATE ER 30 MG TABLET 60 MG PO (20:55)
[2021-07-08] MEDS: PRAZOSIN 1 MG CAPSULE PO (20:55)
[2021-07-08] MEDS: SENNOSIDES 8.6 MG TABLET 17.2 MG PO (20:55)
[2021-07-08] MEDS: DOCUSATE 100 MG CAPSULE PO (20:55)
[2021-07-08] MEDS: TAMSULOSIN 0.4 MG CAPSULE PO (20:55)
[2021-07-08] MEDS: ATORVASTATIN 20 MG TABLET 80 MG PO (20:56)
[2021-07-09] MEDS: SODIUM CHLORIDE 0.9% 1,000 ML 100 ML IV (02:26)
[2021-07-09 03:10] VITALS: BP 128/53; PULSE 71; RESP 17; TEMP 36.3; O2SAT 94
[2021-07-09] MEDS: CEFAZOLIN 2 GM/20 ML SYRINGE IV (05:43)
[2021-07-09] MEDS: LEVOTHYROXINE 100 MCG TABLET 200 MCG PO (05:43)
[2021-07-09 06:34] LABS: Hemoglobin 10.9 g/dL (13.5-17.5)
[2021-07-09 08:15] VITALS: BP 139/52; PULSE 69; RESP 17; TEMP 36.6; O2SAT 94
[2021-07-09] MEDS: hydrOXYzine pamoate 25 MG CAPSULE PO ×2 (08:26→15:19)
[2021-07-09] MEDS: DOCUSATE 100 MG CAPSULE PO ×2 (08:26→20:29)
[2021-07-09 08:27] VITALS: BP 139/52; PULSE 65
[2021-07-09] MEDS: LOSARTAN 50 MG TABLET 100 MG PO (08:27)
[2021-07-09] MEDS: buPROPion XL 150 MG TAB PO (08:28)
[2021-07-09] MEDS: ACETAMINOPHEN 325 MG TABLET 650 MG PO ×3 (08:28→21:53)
[2021-07-09] MEDS: FUROSEMIDE 40 MG TABLET 80 MG PO (08:28)
[2021-07-09] MEDS: LORATADINE 10 MG TABLET PO (08:28)
[2021-07-09] MEDS: MELOXICAM 7.5 MG TABLET 15 MG PO (08:28)
[2021-07-09] MEDS: MAGNESIUM HYDROXIDE 30 ML UDC PO (08:28)
[2021-07-09] MEDS: AMLODIPINE 5 MG TABLET PO ×2 (08:28→20:29)
[2021-07-09] MEDS: OXYCODONE IR 5 MG TABLET 10 MG PO ×4 (08:29→21:53)
[2021-07-09] MEDS: ISOSORBIDE MONONITRATE ER 30 MG TABLET 60 MG PO ×2 (09:11→20:29)
[2021-07-09] MEDS: MAG HYDROX/ALUM/SIMETH 30 ML UDC PO (09:11)
--- NOTE | 2021-07-09 10:03 | PT.IIE ---
Current Diagnoses Spinal stenosis, lumbar region with neurogenic claudication (07/08/21) Arthrodesis status (07/08/21) Surgery Performed Operation Date: 07/08/21 08:45 Actual Procedures p L2-3, L3-4 TLIF, L4-5 lumbar HWR, exploration of fusion, repeat laminectomy, reinsertion of hardware, L2-5 PSF w. insturmentation-Robot - Neeru Gutierrez MD Medical History (Last Updated 07/01/21 @ 10:41 by Breonna Schneider RN) Actinic keratosis ADD (attention deficit disorder) Anemia Anxiety BCC (basal cell carcinoma), face (~1979) Blood glucose elevated BPH with urinary obstruction CAD (coronary artery disease) Carotid artery disease without cerebral infarction Chronic sinusitis COPD (chronic obstructive pulmonary disease) Depression Diastolic dysfunction Excessive daytime sleepiness Fungal pneumonia (2017) GERD (gastroesophageal reflux disease) Hepatitis B Hepatitis C (~2013) History of heroin abuse HLD (hyperlipidemia) HTN (hypertension) Hypothyroidism Memory changes Obstructive sleep apnea of adult Osteoarthritis Primary insomnia PVC's (premature ventricular contractions) RBBB (right bundle branch block) Sinus bradycardia Snoring Physical Therapy Inpatient Evaluation/Re-Eval M1 PT/OT-IP Prior Functional Status Start: 07/09/21 12:25 Freq: NEEDED Status: Active Protocol: Document 07/09/21 10:03 AB (Rec: 07/09/21 12:38 AB [email or web address]) Medical Review Prior Functional Status Medical History Reviewed Yes Communication able to make needs known Mobility and Gait pt stated that he is independent with all mobilities and ambulation without AD Social History Household Members spouse Living Arrangements House Number of Floors (Floors) Two Floors Number of Stairs To Enter/Railing? pt stays on main level of the house has not steps to enter Home Environment Standard Height Toilet,Walk in Shower,Built-In Shower Seat Home Equipment Front Wheel Walker,Straight Cane,Raised Toilet Seat w/ Armrests,Hand Held Shower Additional Social History Comment pt has an adjustable bed. M2 PT-IP Current Condition Start: 07/09/21 12:25 Freq: NEEDED Status: Active Protocol: Document 07/09/21 10:03 AB (Rec: 07/09/21 12:38 AB [email or web address]) Physical Therapy Current Condition Current Condition Evaluation Date 07/09/21 Treatment Diagnosis s/p L4-5 TLIF; difficulty in walking Onset Date 07/08/21 M3 PT-IP Subjective Start: 07/09/21 12:25 Freq: NEEDED Status: Active Protocol: Document 07/09/21 10:03 AB (Rec: 07/09/21 12:38 AB [email or web address]) Subjective Physical Therapy Visit Type Type Initial Evaluation Visit Start Time 10:03 Visit Stop Time 10:35 Total Visit Minutes 32 Number of CLINICAL CARE LEADER Visits 0 Physical Therapy Visit Comments Patient Comments agreeable to do PT Therapy Pain Assessment Pain When Pain Assessed At Rest Pain Present Pain Present Pain Reported Location Back Intensity 1 Scale Used increases to 5/10 with mobility Pain Management Techniques Distraction,Modification of Treatment,Re-positioning, Timing of Activity with Medications M4 PT-IP Mobility and Gait Start: 07/09/21 12:25 Freq: NEEDED Status: Active Protocol: Document 07/09/21 10:03 AB (Rec: 07/09/21 12:38 [email or web address]) PT-Bed Mobility Assessment Rolling Type of Rolling Log Rolling Level of Assist Maximal Assistance Supine to Sit Supine to Sit Maximum Assistance PT-Transfer Assessment Sit to and From Stand Sit to and from Stand Minimal Assistance,1 Person Assistance,Use of Upper Extremities Equipment Transfer Assistive Device Gait Belt,Front Wheeled Walker Orthotic/Prosthetic Devices or Brace: No Transfers Transfer Destination Chair Transfer Technique ambulated Transfer Ability Level of Assist Minimal Assistance,1 Person Assistance,Use of Upper Extremities Comments Mobility Comments educated on back precautions and log roll bed mobility. completed supine to sit log roll max A and max cues. able to sit on EOB SBA. completed sit to stand min A and ambulated in room ~ 25 ft using FWW min A. c/o fatigue stated that that's about it of what he can do for now. agreed to sit on chair. positioned on chair. call light and table placed within reach. Gait Assessment Gait Gait Assistance Required: Minimum Assistance Distance (Feet) 25 Able to Maintain Weight Bearing Status Yes During Gait Assistive Devices Assistive Device Gait Belt,Front Wheeled Walker Orthotic/Prosthetic Devices or Brace: No Gait Deviations General Gait Pattern Antalgic,Decreased Stride Length,Decreased Feet Clearance,Step-to Gait Factors Limiting Gait Function Factors Limiting Gait Function Decreased Activity Tolerance, Decreased Sensation,Decreased Strength,Limited Range of Motion,Pain,Poor Balance,Poor Safety Awareness PT-Balance Assessment Sitting Balance and Reactions Static Sitting Balance Ability Good Dynamic Sitting Balance Ability Good Standing Balance and Reactions Static Standing Balance Ability Fair Dynamic Standing Balance Ability Fair Device Used FWW M5 PT-IP Objective Assessments Start: 07/09/21 12:25 Freq: NEEDED Status: Active Protocol: Document 07/09/21 10:03 AB (Rec: 07/09/21 12:38 AB [email or web address]) Orientation Orientation/Cognition Level of Alertness Alert Orientation Name,Place,Situation Language Function Ability No Deficits Noted Safety Awareness Decreased Safety Awareness Memory Description No Deficits Noted Gross Range of Motion Lower Extremity ROM Assessment Within Functional Limits Strength Lower Extremity Strength Hip 4-/5 Knee 4-/5 Sensation Assessment Sensation Gross Sensation Right LE Impaired,Left LE Impaired Sensation Description Numbness Comments Sensation Comments stated RLE 50% sensation Muscle Tone Muscle Tone WNL Yes M6 PT-IP Treatment Start: 07/09/21 12:25 Freq: NEEDED Status: Active Protocol: Document 07/09/21 10:03 AB (Rec: 07/09/21 12:38 AB [email or web address]) Physical Therapy Treatment Education Education Provided Precautions,Weight Bearing Status,Post-Op Packet,Safety M7 PT-IP Assessment and Plan Start: 07/09/21 12:25 Freq: NEEDED Status: Active Protocol: Document 07/09/21 10:03 AB (Rec: 07/09/21 12:38 AB [email or web address]) PT Summary Assessment and Plan Potential Rehabilitation Potential Good Status of Condition at Evaluation Evolving Summary Impairments Pain,ROM,Strength,Balance, Coordination,Sensation,Tone, Cognition,Bed Mobility, Transfers,Gait,Activity Tolerance Assessment Summary pt requiring max A for bed mobility and min A for transfers and ambulation and unable to tolerate much activity with c/o fatigue. pt plans to go home with spouse to assist him. will conduct caregiver training when appropriate. Goals Bed Mobility Goal Independent Transfer Goal Independent,Front Wheeled Walker Gait Goal Independent,Front Wheel Walker Gait Distance 200 Days to Meet Goals 5 Frequency of Treatment Frequency Of Treatment Twice a Day Treatment Plan Physical Therapy Treatment Plan Bed Mobility Training,Transfer Training,Gait Training, Therapeutic Exercise,Balance Retraining,Post Op Education, Discharge Planning,Hot or Cold Pack,Neuromuscular Re-ed, Coordination Retraining,Manual Therapy Precautions Lumbar Precautions Log Roll,No Twisting,Limit Bending,Lifting Restriction of 10 lbs,Gait Belt above Incisional Area Recommendations To Nursing Amount of Assist Needed 1 Person Assist Discharge Recommendations PT Discharge Recommendations Home with Assistance,Home Health Transportation Needs at Discharge Private Vehicle
--- NOTE | 2021-07-09 10:03 | PT.IIE ---
Current Diagnoses Spinal stenosis, lumbar region with neurogenic claudication (07/08/21) Arthrodesis status (07/08/21) Surgery Performed Operation Date: 07/08/21 08:45 Actual Procedures p L2-3, L3-4 TLIF, L4-5 lumbar HWR, exploration of fusion, repeat laminectomy, reinsertion of hardware, L2-5 PSF w. insturmentation-Robot - Neeru Gutierrez MD Medical History (Last Updated 07/01/21 @ 10:41 by Breonna Schneider RN) Actinic keratosis ADD (attention deficit disorder) Anemia Anxiety BCC (basal cell carcinoma), face (~1979) Blood glucose elevated BPH with urinary obstruction CAD (coronary artery disease) Carotid artery disease without cerebral infarction Chronic sinusitis COPD (chronic obstructive pulmonary disease) Depression Diastolic dysfunction Excessive daytime sleepiness Fungal pneumonia (2017) GERD (gastroesophageal reflux disease) Hepatitis B Hepatitis C (~2013) History of heroin abuse HLD (hyperlipidemia) HTN (hypertension) Hypothyroidism Memory changes Obstructive sleep apnea of adult Osteoarthritis Primary insomnia PVC's (premature ventricular contractions) RBBB (right bundle branch block) Sinus bradycardia Snoring Physical Therapy Inpatient Evaluation/Re-Eval M1 PT/OT-IP Prior Functional Status Start: 07/09/21 12:25 Freq: NEEDED Status: Active Protocol: Document 07/09/21 10:03 AB (Rec: 07/09/21 12:38 AB [email or web address]) Medical Review Prior Functional Status Medical History Reviewed Yes Communication able to make needs known Mobility and Gait pt stated that he is independent with all mobilities and ambulation without AD indoors but uses a SPC for outdoor/long distance ambulation Social History Household Members spouse Living Arrangements House Number of Floors (Floors) Two Floors Number of Stairs To Enter/Railing? pt stays on main level of the house 1 step to enter from the garage 7 steps R rail from the front Home Environment Standard Height Toilet,Tub/ Shower,Built-In Shower Seat Home Equipment Front Wheel Walker,Straight Cane,Hand Held Shower M2 PT-IP Current Condition Start: 07/09/21 12:25 Freq: NEEDED Status: Active Protocol: Document 07/09/21 10:03 AB (Rec: 07/09/21 12:38 AB [email or web address]) Physical Therapy Current Condition Current Condition Evaluation Date 07/09/21 Treatment Diagnosis s/p L4-5 TLIF; difficulty in walking Onset Date 07/08/21 M3 PT-IP Subjective Start: 07/09/21 12:25 Freq: NEEDED Status: Active Protocol: Document 07/09/21 10:03 AB (Rec: 07/09/21 12:38 AB [email or web address]) Subjective Physical Therapy Visit Type Type Initial Evaluation Visit Start Time 10:03 Visit Stop Time 10:35 Total Visit Minutes 32 Number of CNC MANUFACTURING ENGINEER Visits 0 Physical Therapy Visit Comments Patient Comments agreeable to do PT Therapy Pain Assessment Pain When Pain Assessed At Rest Pain Present Pain Present Pain Reported Location Back Intensity 1 Scale Used increases to 5/10 with mobility Pain Management Techniques Distraction,Modification of Treatment,Re-positioning, Timing of Activity with Medications M4 PT-IP Mobility and Gait Start: 07/09/21 12:25 Freq: NEEDED Status: Active Protocol: Document 07/09/21 10:03 AB (Rec: 07/09/21 12:38 AB [email or web address]) PT-Bed Mobility Assessment Rolling Type of Rolling Log Rolling Level of Assist Maximal Assistance Supine to Sit Supine to Sit Maximum Assistance PT-Transfer Assessment Sit to and From Stand Sit to and from Stand Minimal Assistance,1 Person Assistance,Use of Upper Extremities Equipment Transfer Assistive Device Gait Belt,Front Wheeled Walker Orthotic/Prosthetic Devices or Brace: No Transfers Transfer Destination Chair Transfer Technique ambulated Transfer Ability Level of Assist Minimal Assistance,1 Person Assistance,Use of Upper Extremities Comments Mobility Comments educated on back precautions and log roll bed mobility. completed supine to sit log roll max A and max cues. able to sit on EOB SBA. completed sit to stand min A and ambulated in room ~ 25 ft using FWW min A. c/o fatigue stated that that's about it of what he can do for now. agreed to sit on chair. positioned on chair. call light and table placed within reach. Gait Assessment Gait Gait Assistance Required: Minimum Assistance Distance (Feet) 25 Able to Maintain Weight Bearing Status Yes During Gait Assistive Devices Assistive Device Gait Belt,Front Wheeled Walker Orthotic/Prosthetic Devices or Brace: No Gait Deviations General Gait Pattern Antalgic,Decreased Stride Length,Decreased Feet Clearance,Step-to Gait Factors Limiting Gait Function Factors Limiting Gait Function Decreased Activity Tolerance, Decreased Sensation,Decreased Strength,Limited Range of Motion,Pain,Poor Balance,Poor Safety Awareness PT-Balance Assessment Sitting Balance and Reactions Static Sitting Balance Ability Good Dynamic Sitting Balance Ability Good Standing Balance and Reactions Static Standing Balance Ability Fair Dynamic Standing Balance Ability Fair Device Used FWW M5 PT-IP Objective Assessments Start: 07/09/21 12:25 Freq: NEEDED Status: Active Protocol: Document 07/09/21 10:03 AB (Rec: 07/09/21 12:38 AB [email or web address]) Orientation Orientation/Cognition Level of Alertness Alert Orientation Name,Place,Situation Language Function Ability No Deficits Noted Safety Awareness Decreased Safety Awareness Memory Description No Deficits Noted Gross Range of Motion Lower Extremity ROM Assessment Within Functional Limits Strength Lower Extremity Strength Hip 4-/5 Knee 4-/5 Sensation Assessment Sensation Gross Sensation Right LE Impaired,Left LE Impaired Sensation Description Numbness Comments Sensation Comments stated RLE 50% sensation Muscle Tone Muscle Tone WNL Yes M6 PT-IP Treatment Start: 07/09/21 12:25 Freq: NEEDED Status: Active Protocol: Document 07/09/21 10:03 AB (Rec: 07/09/21 12:38 AB [email or web address]) Physical Therapy Treatment Education Education Provided Precautions,Weight Bearing Status,Post-Op Packet,Safety M7 PT-IP Assessment and Plan Start: 07/09/21 12:25 Freq: NEEDED Status: Active Protocol: Document 07/09/21 10:03 AB (Rec: 07/09/21 12:38 AB [email or web address]) PT Summary Assessment and Plan Potential Rehabilitation Potential Good Status of Condition at Evaluation Evolving Summary Impairments Pain,ROM,Strength,Balance, Coordination,Sensation,Tone, Cognition,Bed Mobility, Transfers,Gait,Activity Tolerance Assessment Summary pt requiring max A for bed mobility and min A for transfers and ambulation and unable to tolerate much activity with c/o fatigue. pt plans to go home with spouse to assist him. will conduct caregiver training when appropriate. Goals Bed Mobility Goal Independent Transfer Goal Independent,Front Wheeled Walker Gait Goal Independent,Front Wheel Walker Gait Distance 200 Days to Meet Goals 5 Frequency of Treatment Frequency Of Treatment Twice a Day Treatment Plan Physical Therapy Treatment Plan Bed Mobility Training,Transfer Training,Gait Training, Therapeutic Exercise,Balance Retraining,Post Op Education, Discharge Planning,Hot or Cold Pack,Neuromuscular Re-ed, Coordination Retraining,Manual Therapy Precautions Lumbar Precautions Log Roll,No Twisting,Limit Bending,Lifting Restriction of 10 lbs,Gait Belt above Incisional Area Recommendations To Nursing Amount of Assist Needed 1 Person Assist Discharge Recommendations PT Discharge Recommendations Home with Assistance,Home Health Transportation Needs at Discharge Private Vehicle
--- NOTE | 2021-07-09 14:28 | OT.IP.EVAL ---
Current Diagnoses Spinal stenosis, lumbar region with neurogenic claudication (07/08/21) Arthrodesis status (07/08/21) Surgery Performed Operation Date: 07/08/21 08:45 Actual Procedures p L2-3, L3-4 TLIF, L4-5 lumbar HWR, exploration of fusion, repeat laminectomy, reinsertion of hardware, L2-5 PSF w. insturmentation-Jesus Manuel - Neeru Gutierrez MD Past Medical History (Last Reviewed 07/09/21 @ 14:51 by Melvina Coon PA-C) Actinic keratosis ADD (attention deficit disorder) Anemia Anxiety BCC (basal cell carcinoma), face (~1979) Blood glucose elevated BPH with urinary obstruction CAD (coronary artery disease) Carotid artery disease without cerebral infarction Chronic sinusitis COPD (chronic obstructive pulmonary disease) Depression Diastolic dysfunction Excessive daytime sleepiness Fungal pneumonia (2017) GERD (gastroesophageal reflux disease) Hepatitis B Hepatitis C (~2013) History of colonoscopy (05/25/19) History of hemilaminectomy (09/19/19) History of heroin abuse History of lumbar fusion (2013) History of surgery (2017) History of surgery HLD (hyperlipidemia) HTN (hypertension) Hx of bilateral cataract extraction (04/2019) Hx of eye surgery Hx of heart artery stent (2012) Hx of laminectomy (1996) Hx of repair of right rotator cuff (2002) Hx of sinus surgery Hypothyroidism Memory changes Obstructive sleep apnea of adult Osteoarthritis Primary insomnia PVC's (premature ventricular contractions) RBBB (right bundle branch block) Sinus bradycardia Snoring Status post trigger finger release (2014) Surgical History (Last Reviewed 07/09/21 @ 14:52 by Melvina Coon PA-C) History of colonoscopy (05/25/19) History of hemilaminectomy (09/19/19) History of lumbar fusion (2013) History of surgery (2018) History of surgery Hx of bilateral cataract extraction (04/2019) Hx of eye surgery Hx of heart artery stent (2012) Hx of laminectomy (1996) Hx of repair of right rotator cuff (2002) Hx of sinus surgery Status post trigger finger release (2014) Occupational Therapy Inpatient Evaluation/Re-Eval M1 PT/OT-IP Prior Functional Status Start: 07/09/21 12:25 Freq: NEEDED Status: Active Protocol: Document 07/09/21 12:50 [facility] (Rec: 07/09/21 17:42 [facility] [id number]) Medical Review Prior Functional Status Medical History Reviewed Yes Communication able to make needs known Mobility and Gait pt stated that he is independent with all mobilities and ambulation without AD indoors but uses a SPC for outdoor/long distance ambulation Activities of Daily Living and IADL's Pt states more difficult to do ADL needs . Social History Household Members spouse Living Arrangements House Number of Floors (Floors) Two Floors Number of Stairs To Enter/Railing? pt stays on main level of the house 1 step to enter from the garage 7 steps R rail from the front Home Environment Standard Height Toilet,Tub/ Shower,Built-In Shower Seat Home Equipment Front Wheel Walker,Straight Cane,Hand Held Shower M2 OT-IP Current Condition Start: 07/09/21 14:35 Freq: Status: Active Protocol: Document 07/09/21 12:50 [facility] (Rec: 07/09/21 17:42 [facility] [id number]) Occupational Therapy Current Condition Current Condition Evaluation Date 07/09/21 Treatment Diagnosis S/p L2-3, l3-4 TLIF removal [id number] L4-5 hardware and placement L2-5 Diagnosis Onset Date 07/08/21 Post Operative Precautions Lumbar Precautions Log Roll,No Twisting,Limit Bending,Lifting Restriction of 10 lbs,Gait Belt above Incisional Area M3 OT- IP Subjective and Pain Start: 07/09/21 14:35 Freq: Status: Active Protocol: Document 07/09/21 12:50 [facility] (Rec: 07/09/21 17:42 [facility] [id number]) OT- Subjective Occupational Therapy Visit Type Type Initial Evaluation Visit Start Time 12:50 Visit Stop Time 14:28 Total Visit Minutes 48 Notes Pt seen for split treatment [id number] and [id number] Pt's present. Occupational Therapy Visit Comments Patient Comments Pt wanting to get back to bed. Patient/Caregiver Goals To go home but open to going to skilled rehab. OT Pain Assessment Pain When Pain Assessed At Rest Pain Present Pain Present Pain Reported M4 OT- IP ADL's Start: 07/09/21 14:35 Freq: Status: Active Protocol: Document 07/09/21 12:50 [facility] (Rec: 07/09/21 17:42 [facility] [id number]) OT [id number] Comments OT Self-Feeding Comments NOt at meal time. OT ADL-Grooming Comments OT Grooming Comments NOt performed. OT ADL-Oral Care Comments Oral Care Comments Educated to best follow his back precautions to spit into a cup or hinge at his hips. OT ADL-Dressing General Eval Lower Body Dressing Ability Maximum Assistance Comments OT Dressing Comments Pt's states will assist for all needs at this time for LB dressing needs. OT ADL-Toileting Comments OT Toileting Comments Pt not having to go at this time. OT ADL-Bathing Comments OT Bathing Comments To do tomorrow if appropriate. M5 OT- IP IADL's Start: 07/09/21 14:35 Freq: Status: Active Protocol: Document 07/09/21 12:50 [facility] (Rec: 07/09/21 17:42 [facility] [id number]) OT-Instrumental Activities of Daily Living Home Safety Awareness Home Safety Comments Pt has a supportive to assist for his needs. M6 OT- IP Functional Cognition Start: 07/09/21 14:35 Freq: Status: Active Protocol: Document 07/09/21 12:50 [facility] (Rec: 07/09/21 17:42 [facility] [id number]) Cognitive Factors Limiting Selfcare Function Cognitive Ability Level of Alertness Alert Patient Orientation Name,Place,Situation Attention Span Ability Capable of Focused Attention, Capable of Sustained Attention Ability to Follow Commands Able to Follow Multi-Step Commands Cognitive Comments Cognitive Assessment Comments Pt able to follow commands for mobility needs and suggestions for back precautions for ADL needs. M7 OT- IP Mobility and Balance Start: 07/09/21 14:35 Freq: Status: Active Protocol: Document 07/09/21 12:50 [facility] (Rec: 07/09/21 17:42 [facility] [id number]) OT- Bed Mobility Assessment Sit to Supine Sit to Supine Assist MOD Assistance,1 Person Assistance OT-Transfer Assessment Sit to and From Stand Sit to and from Stand Moderate Assistance,2 Person Assistance Transfers Transfer Ability Minimal Assistance,Moderate Assistance,2 Person Assistance Technique Transfer Destination Bed,Chair Transfer Technique Stand Step Pivot Devices Transfer Assistive Devices Gait Belt,Front Wheeled Walker Comments Mobility Comments Able to initiate education of how to edwin/doff the gait belt and how to assist pt for sit to stand and for transfer at this time. Pt needing MOD A x2 to stand to the FWW and tending to lean to the right and needing asisst from therapist to help hold the pt while his trying to assist at this time. OT- Balance Assessment Sitting Balance and Reactions Static Sitting Balance Ability Good Dynamic Sitting Balance Ability Fair Standing Balance and Reactions Static Standing Balance Ability Fair Dynamic Standing Balance Ability Poor M8 OT- IP Objective Assessments Start: 07/09/21 14:35 Freq: Status: Active Protocol: Document 07/09/21 12:50 [facility] (Rec: 07/09/21 17:42 [facility] [id number]) OT-Muscle Tone Assessment Muscle Tone WNL Yes M9 OT- IP Assessment and Plan Start: 07/09/21 14:35 Freq: Status: Active Protocol: Document 07/09/21 12:50 [facility] (Rec: 07/09/21 17:42 [facility] [id number]) OT Summary Assessment and Plan Potential Rehabilitation Potential Good Analytic Complexity at Evaluation Low Summary OT Impairments Pain,Balance,Functional Mobility,Grooming,Dressing, Toileting,Bathing,Toilet Transfers,Shower Transfers, Activity Tolerance Progress Towards Goals Slow Progress due to Pain,Slow Progress due to Activity Tolerance Assessment Summary Pt low complexity and main barrier is pain. OT has initiated caregiver training for ADl's, transfers, and bed mobility needs. Pt would benefit from tub bench, BSC, and FWW- pt's to go to [facility] to look for items tomorrow. Pt needing MODA x2 to stand and walk to the bed from the recliner. Pending caregiver training and progress pt may need short rehab stay versus home with 24 /7 assist and home health. Pt 's to come at 11am for caregiver training. Goals Grooming Goal Independent Dressing Goal Minimal Assistance Toileting Goal Independent Bathing Goal Independent Toilet Transfer Goal Independent Shower Transfer Goal Contact Guard Assistance Patient/Caregiver Education Goal Demonstrate Post-Op Precautions,Caregiver Independent Assisting Patient Days to Meet Goals 7 Frequency of Treatment Frequency Of Treatment Once a Day Treatment Plan OT Treatment Plan ADL Training,Functional Cognition Training,Functional Mobility Discharge Recommendations OT Discharge Recommendations Home with 24/7 Assist Available,Home Health,SNF Rehab,Home vs SNF Home Equipment Needs FWW, BSC, tub bench Transportation Needs at Discharge Private Vehicle,Wheelchair/ Cabulance
--- NOTE | 2021-07-09 14:45 | PT.IPTN ---
Current Diagnoses Spinal stenosis, lumbar region with neurogenic claudication (07/08/21) Arthrodesis status (07/08/21) Surgery Performed Operation Date: 07/08/21 08:45 Actual Procedures p L2-3, L3-4 TLIF, L4-5 lumbar HWR, exploration of fusion, repeat laminectomy, reinsertion of hardware, L2-5 PSF wMaryjane insturmentation-Robot - Neeru Gutierrez MD Physical Therapy Treatment Note M2 PT-IP Current Condition Start: 07/09/21 12:25 Freq: NEEDED Status: Active Protocol: Document 07/09/21 10:03 AB (Rec: 07/09/21 12:38 AB [id number]) Physical Therapy Current Condition Current Condition Evaluation Date 07/09/21 Treatment Diagnosis s/p L4-5 TLIF; difficulty in walking Onset Date 07/08/21 M3 PT-IP Subjective Start: 07/09/21 12:25 Freq: NEEDED Status: Active Protocol: Document 07/09/21 14:45 AB (Rec: 07/09/21 15:50 AB [email or web address]) Subjective Physical Therapy Visit Type Type Treatment Note Visit Start Time 14:45 Visit Stop Time 15:02 Total Visit Minutes 17 Number of BOOKKEEPERS SUPERVISOR Visits 0 Physical Therapy Visit Comments Patient Comments agreeable to do PT Therapy Pain Assessment Pain When Pain Assessed During Mobility Pain Present Pain Present Pain Reported Location Back Intensity 5 Scale Used Numeric (0 - 10) M4 PT-IP Mobility and Gait Start: 07/09/21 12:25 Freq: NEEDED Status: Active Protocol: Document 07/09/21 14:45 AB (Rec: 07/09/21 15:50 AB [email or web address]) PT-Bed Mobility Assessment Supine to Sit Supine to Sit Standby Assistance Sit to Supine Sit to Supine Standby Assistance PT-Transfer Assessment Sit to and From Stand Sit to and from Stand Contact Guard Assistance,1 Person Assistance,Use of Upper Extremities Equipment Transfer Assistive Device Gait Belt,Front Wheeled Walker Orthotic/Prosthetic Devices or Brace: No Comments Mobility Comments pt supine in bed and agreed to do PT. completed log roll supine to sit SBA. able to sit on EOB SBA. completed sit to stand CGA and ambulated in room using FWW CGA. ~ 35 ft. pt requested to go back to bed and completed sit to supine log roll SBA. positioned pt in bed. call light and table placed within reach. set up caregiver training 1030 am tomorrow with spouse. Gait Assessment Gait Gait Assistance Required: Contact Guard Assist Distance (Feet) 35 Able to Maintain Weight Bearing Status Yes During Gait Assistive Devices Assistive Device Gait Belt,Front Wheeled Walker Orthotic/Prosthetic Devices or Brace: No Gait Deviations General Gait Pattern Decreased Stride Length, Decreased Feet Clearance Factors Limiting Gait Function Factors Limiting Gait Function Decreased Activity Tolerance, Decreased Strength,Limited Range of Motion,Pain,Poor Balance,Poor Safety Awareness M5 PT-IP Objective Assessments Start: 07/09/21 12:25 Freq: NEEDED Status: Active Protocol: Document 07/09/21 10:03 AB (Rec: 07/09/21 12:38 AB [id number]) Orientation Orientation/Cognition Level of Alertness Alert Orientation Name,Place,Situation Language Function Ability No Deficits Noted Safety Awareness Decreased Safety Awareness Memory Description No Deficits Noted Gross Range of Motion Lower Extremity ROM Assessment Within Functional Limits Strength Lower Extremity Strength Hip 4-/5 Knee 4-/5 Sensation Assessment Sensation Gross Sensation Right LE Impaired,Left LE Impaired Sensation Description Numbness Comments Sensation Comments stated RLE 50% sensation Muscle Tone Muscle Tone WNL Yes M6 PT-IP Treatment Start: 07/09/21 12:25 Freq: NEEDED Status: Active Protocol: Document 07/09/21 14:45 AB (Rec: 07/09/21 15:50 AB [email or web address]) Physical Therapy Treatment Education Education Provided Precautions,Safety M7 PT-IP Assessment and Plan Start: 07/09/21 12:25 Freq: NEEDED Status: Active Protocol: Document 07/09/21 14:45 AB (Rec: 07/09/21 15:50 AB [email or web address]) PT Summary Assessment and Plan Potential Rehabilitation Potential Fair Summary Impairments Pain,ROM,Strength,Balance, Coordination,Sensation,Tone, Cognition,Bed Mobility, Transfers,Gait,Activity Tolerance Progress Towards Goals Slow Progress due to Activity Tolerance,Slow Progress - Other Assessment Summary pt improving slowly with mobility but continues to have decrease activity tolerance affecting mobility. caregiver training set up for tomorrow at 1030 am. will continue to assess progress. Goals Bed Mobility Goal Independent Transfer Goal Independent,Front Wheeled Walker Gait Goal Independent,Front Wheel Walker Gait Distance 200 Days to Meet Goals 5 Frequency of Treatment Frequency Of Treatment Twice a Day Treatment Plan Physical Therapy Treatment Plan Bed Mobility Training,Transfer Training,Gait Training, Therapeutic Exercise,Balance Retraining,Post Op Education, Discharge Planning,Hot or Cold Pack,Neuromuscular Re-ed, Coordination Retraining,Manual Therapy Precautions Lumbar Precautions Log Roll,No Twisting,Limit Bending,Lifting Restriction of 10 lbs,Gait Belt above Incisional Area Recommendations To Nursing Amount of Assist Needed 1 Person Assist Discharge Recommendations PT Discharge Recommendations Home with Assistance,Home Health Transportation Needs at Discharge Private Vehicle
--- NOTE | 2021-07-09 14:49 | PM.PNPO.1 ---
Subjective Subjective Date Patient Seen: 07/09/21 Time Patient Seen: 14:49 Interval history: Patient is complaining of moderate low back pain today. He notes he has longstanding right-sided lower extremity numbness, although this is somewhat improved since his surgery. He denies any fevers, chills, night sweats. He is working with physical therapy. Exam Vital Signs (past 8 hours): - 07/09/21 08:15 07/09/21 08:27 Temperature 97.8 F Pulse Rate 69 65 Respiratory Rate 17 Blood Pressure 139/52 L 139/52 L Pulse Oximetry 94 Oxygen Delivery Method Nasal Cannula Oxygen Flow Rate 0 Narrative Exam Narrative: Pleasant 76-year-old male, resting comfortably in bed, no acute distress. Dressing is saturated on the left lateral incision, no surrounding erythema or induration or signs of a hematoma. Bilateral lower extremity: Motor functions are grossly intact, sensation is slightly decreased right compared to left, patient notes this is his baseline; calves are soft and nontender palpation. Objective Labs Result Diagrams: 07/09/21 06:09 Labs: Laboratory Results - last 24 hr 07/09/21 06:09 Hgb 10.9 L Hct 32.0 L PFSH Medical History Actinic keratosis ADD (attention deficit disorder) Anemia Anxiety BCC (basal cell carcinoma), face (~1979) Blood glucose elevated BPH with urinary obstruction CAD (coronary artery disease) Carotid artery disease without cerebral infarction Chronic sinusitis COPD (chronic obstructive pulmonary disease) Depression Diastolic dysfunction Excessive daytime sleepiness Fungal pneumonia (2017) GERD (gastroesophageal reflux disease) Hepatitis B Hepatitis C (~2013) History of heroin abuse HLD (hyperlipidemia) HTN (hypertension) Hypothyroidism Memory changes Obstructive sleep apnea of adult Osteoarthritis Primary insomnia PVC's (premature ventricular contractions) RBBB (right bundle branch block) Sinus bradycardia Snoring Surgical History History of colonoscopy (05/25/19) History of hemilaminectomy (09/19/19) History of lumbar fusion (2013) History of surgery (2018) History of surgery Hx of bilateral cataract extraction (04/2019) Hx of eye surgery Hx of heart artery stent (2012) Hx of laminectomy (1996) Hx of repair of right rotator cuff (2003) Hx of sinus surgery Status post trigger finger release (2015) Social History marital status: household members: spouse Smoking Status: Former smoker alcohol intake: current substance use type: does not use Assessment & Plan Post-op Postoperative Procedures: Procedures Operation Date: 07/08/21 08:45 Actual Procedure Side Surgeon p L2-3, L3-4 TLIF, L4-5 lumbar HWR, exploration of fusion, repeat laminectomy, reinsertion of hardware, L2-5 PSF w. insturmentation-Robot Neeru Gutierrez MD Postoperative day: 1 Postoperative status narrative: Stable status post L4-5 hardware removal, L2-3, L3-4, L4-5 lumbar fusion Postoperative plan narrative: -mobilize with PT. Limit bending, lifting, twisting x6 weeks. Weightbearing as tolerated front wheel walker -continue with multimodal pain management -DC to home versus SNF in 1-2 days Quality VTE Deep Vein Thrombosis/Pulmonary Embolism Present on Admission: No
[2021-07-09 14:56] VITALS: BP 115/52; PULSE 84; RESP 16; TEMP 36.3; O2SAT 95
--- NOTE | 2021-07-09 16:01 | CM.IDA ---
Initial DCP Assessment Note Pt is a 76 yo male, resident of [place], now POD#[address] surgery [address] Dr Gutierrez PCP: Thiago Dumont Payer: JOSE/Eri Reviewed chart, met w/patient, introduced role. PT currently recommending home w/ HH. Patient is indp at baseline, uses a cane for longer distance ambulation. Patient expects to return home w/spouse, states he will not consider a SNF if it is recommended. Patient plans to place a call to a friend of [employer] that works in healthcare and may be able to assist he and spouse once home Discussed HH services; patient requests this VALIDATION SPECIALIST return tomorrow to speak w/spouse about this- cg training is scheduled for tomorrow morning per therapy notes Plan: DC expected home w/spouse, r/o need for HH RENE Horton Discharge Planning/Care Management CM Discharge Assessment Start: 07/09/21 15:55 Freq: Status: Active Protocol: Document 07/09/21 15:55 TAHIR (Rec: 07/09/21 16:01 [id number]) Discharge Planning Assessment Assigned Non Destructive Testing Scientist RENE Sahni DPOA/Assigned Designee Name Daysi Leigh, spouse Contact Information [phone] Advance Directives? Yes Advance Directives on File No History Provided By Patient Prior Living Arrangements House Household Members spouse Type of transporation used prior to Drives own vehicle admit Independent with ADL's Yes Is patient alert and oriented? Yes Barriers to Discharge No Comment Patient planning on returning home w/assist from spouse, possibly HH, patient requests this VALIDATION SPECIALIST return tomorrow after cg training to discuss HH w/ spouse Daysi Discharge Plan Home with Home Health Transportation Arrangement Spouse Referrals Initiated None needed Additional Comment Patient would like to discuss w/spouse Medicare Choice List Provided Yes Has Agency SNF been contacted No
[2021-07-09 19:21] VITALS: BP 142/56; PULSE 81; RESP 18; TEMP 36.7; O2SAT 93
[2021-07-09] MEDS: SENNOSIDES 8.6 MG TABLET 17.2 MG PO (20:29)
[2021-07-09] MEDS: ATORVASTATIN 20 MG TABLET 80 MG PO (20:29)
[2021-07-09] MEDS: PRAZOSIN 1 MG CAPSULE PO (20:29)
[2021-07-09] MEDS: TAMSULOSIN 0.4 MG CAPSULE PO (20:29)
[2021-07-09 23:17] VITALS: BP 120/55; PULSE 88; RESP 17; TEMP 36.9; O2SAT 94
[2021-07-10 01:33] VITALS: O2SAT 95
[2021-07-10 05:00] VITALS: BP 131/52; PULSE 79; RESP 17; TEMP 36.6; O2SAT 92
[2021-07-10] MEDS: LEVOTHYROXINE 100 MCG TABLET 200 MCG PO (06:26)
[2021-07-10 08:00] VITALS: BP 117/98; PULSE 80; RESP 18; TEMP 36.8; O2SAT 92
[2021-07-10] MEDS: OXYCODONE IR 5 MG TABLET 10 MG PO ×2 (08:50→11:51)
[2021-07-10] MEDS: hydrOXYzine pamoate 25 MG CAPSULE PO (08:51)
--- NOTE | 2021-07-10 08:57 | PM.DS.1 ---
History of Present Illness History of Present Illness Date Patient Seen: 07/10/21 Time Patient Seen: 08:57 Chief complaint: Back pain Narrative: Patient's pain is 7/10. Patient has not had pain med since yesterday evening. Denies fever or chills. No nausea or vomiting. Patient has his home to assist him. Discharge Providers Provider Date of admission: 07/08/21 07:44 Discharge Date: 07/10/21 Primary care physician: Thiago Dumont MD Consults: 07/08/21 08:26 Consult to Respiratory Therapy Evaluate & Treat Comment: Physician Instructions: Evaluate and treat 07/08/21 15:54 Consult to Occupational Therapy Evaluate & Treat Comment: Physician Instructions: Evaluate and treat Consult to Physical Therapy Evaluate & Treat Comment: Physician Instructions: Evaluate and Treat Discharge provider: Saman Villatoro PA-C Summary Hospital Course Discharge Diagnosis: 1. L4-5 history of fusion 2. L2-3, L3-4 spinal stenosis with neurogenic claudication Hospital Course: 1. L2-3, L3-4 posterolateral and posterior interbody fusion 2. L2-3, L3-4 posterior interbody cage placement 3. L4-5 posterior non-segmental instrumentation removal 4. L4-5 revision laminectomy with exploration of fusion 5. L2-3, L3-4, L4-5 posterior segmental instrumentation with pedicle screw placement 6. L4-5 posterolatearl fusion 7. [place] of bone marrow from iliac crest through a separate incision 8. Utilization of microsurgical technique and operating microscope 9. Utilization of [employer] robotic assisted surgery Same procedure as scheduled: Yes Indications: Patient has been having chronic back pain and worsening lumbar radiculopathy. Patient is status post previous L4-5 level fusion with recent worsening of back pain and left-sided hip pain that is not responding to conservative care. Patient failed multiple conservative management with worsening pain weakness and numbness in his lower extremity.? His updated imaging shows progressively worsened adjacent level with severe spinal stenosis and symptoms of neurogenic claudication.? He has been having difficulty performing activity of daily living.? After discussing risks benefits of treatment options, patient elected proceed with surgery. Surgeon: Neeru Gutierrez Rubber Grinder: Saman Villatoro Click Yes if Unassisted: No Anesthesia Type: General Operative Notes Closure Type: primary Specimen(s): none sent Prosthetic devices, grafts, tissues, transplants, or devices: Globus CREO MIS screws, Rise cages Applied: catheter Estimated Blood Loss (mL): 350 Blood products transfused: none Patient admitted to the hospital for the above-mentioned procedure. Patient consented to the same. Patient taken to the operating room on July 08, 2021. Patient back in his room recovering well as in stable condition. Patient will be discharged home today in stable condition. Exam Vital Signs (past 8 hours): - 07/10/21 01:33 07/10/21 05:00 Temperature 97.9 F Pulse Rate 79 Respiratory Rate 17 Blood Pressure 131/52 L Pulse Oximetry 95 92 Oxygen Delivery Method Nasal Cannula Oxygen Flow Rate 0 Narrative Exam Narrative: 76-year-old male resting comfortably in bed in no apparent distress. Patient is just finishing breakfast. Motor functions intact bilateral lower extremities. Sensation grossly intact to light touch bilateral lower extremities. Dressing is Clean, dry, intact.. Const General: cooperative Nutritional Appearance: average body habitus Resp Effort & Inspection: normal respiratory effort and able to speak in complete sentences Objective Labs Result Diagrams: 07/09/21 06:09 [facility] Medical History Actinic keratosis ADD (attention deficit disorder) Anemia Anxiety BCC (basal cell carcinoma), face (~1979) Blood glucose elevated BPH with urinary obstruction CAD (coronary artery disease) Carotid artery disease without cerebral infarction Chronic sinusitis COPD (chronic obstructive pulmonary disease) Depression Diastolic dysfunction Excessive daytime sleepiness Fungal pneumonia (2017) GERD (gastroesophageal reflux disease) Hepatitis B Hepatitis C (~2013) History of heroin abuse HLD (hyperlipidemia) HTN (hypertension) Hypothyroidism Memory changes Obstructive sleep apnea of adult Osteoarthritis Primary insomnia PVC's (premature ventricular contractions) RBBB (right bundle branch block) Sinus bradycardia Snoring Surgical History History of colonoscopy (05/25/19) History of hemilaminectomy (09/19/19) History of lumbar fusion (2013) History of surgery (2017) History of surgery Hx of bilateral cataract extraction (04/2019) Hx of eye surgery Hx of heart artery stent (2012) Hx of laminectomy (1996) Hx of repair of right rotator cuff (2002) Hx of sinus surgery Status post trigger finger release (2014) Social History marital status: household members: spouse Smoking Status: Former smoker alcohol intake: current substance use type: does not use Discharge Assessment & Plan Assessment and Plan Assessment: Patient progressing as expected status post lumbar fusion Plan of Treatment: Mobilize with physical therapy this morning Limit bending, twisting, lifting Multimodal pain management Discharge home today in stable condition Discharge Plan Discharge Plan Patient Disposition: Home Provider Discharge Comment: DC home today after PT Discharge orders & Medications Prescriptions: New acetaminophen 325 mg Tablet 650 mg PO Q6HR PRN (Reason: Pain, Mild (1-3)) Qty: 60 0RF docusate sodium 100 mg Capsule 100 mg PO BID Qty: 20 0RF oxycodone 5 mg Tablet 10 mg PO Q3HR PRN (Reason: Pain, Severe (7-10)) Qty: 60 0RF hydroxyzine pamoate 25 mg Capsule 25 mg PO Q4HR PRN (Reason: Nausea And Vomiting) Qty: 60 0RF Continued amlodipine [Norvasc] 5 mg Tablet 5 mg PO BID 0RF tamsulosin 0.4 mg Capsule 0.4 mg PO BEDTIME 0RF rosuvastatin [Crestor] 40 mg Tablet 40 mg PO DAILY 0RF bupropion HCl [Wellbutrin XL] 150 mg Tablet Extended Release 24 Hr 150 mg PO QAM 0RF Flonase Sensimist 27.5 mcg/actuation [place],Suspension 1 spray INTRANASAL BID 0RF levothyroxine 150 mcg Capsule 200 mcg PO DAILY 0RF furosemide 40 mg Tablet 80 mg PO QAM 0RF irbesartan 300 mg Tablet 300 mg PO DAILY 0RF prazosin 1 mg Capsule 1 mg PO BEDTIME 0RF fexofenadine 180 mg Tablet 180 mg PO DAILY 0RF isosorbide mononitrate 60 mg Tablet Extended Release 24 Hr 60 mg PO BID 0RF hydrochlorothiazide 25 mg Tablet 25 mg PO QMWF 0RF (DME) Resmed Airsense 10 CPAP Qty: 1 0RF Dose Instruction: As directed Label Comments: Pressure: 8-16 cmH2O DME: [facility] Rx Instructions: As directed Discontinued aspirin [Aspir-81] 81 mg Tablet,Delayed Release (Dr/Ec) 81 mg PO DAILY 0RF meloxicam 15 mg Tablet 15 mg PO DAILY 0RF acetaminophen 650 mg Tablet Extended Release 650 mg PO BID 0RF naproxen 500 mg Tablet 500 mg PO BEDTIME 0RF Follow up/Referrals: Neeru Gutierrez MD [Physician] - (2 weeks) Thiago Dumont MD [Primary Care Provider] - Diet/Activity/Treatments Diet: Diet as Tolerated Activity: Limit bending, twisting, lifting Cold/Heat Therapy: Ice as needed Skin/Wound/Dressing Care Report to your healthcare provider any signs of infection, such as:: chills, fever, increased pain, unusual drainage and unusual redness Dressing: Keep dressing clean and dry Visit Report/Discharge Packet Instructions: DI for Heart Failure, DI for Prescription Opioid Use, DI for Transforaminal Lumbar Interbody Fusion Stand Alone Forms: Surgery Discharge Discharge Data Primary Care Provider: Thiago Dumont Quality VTE Deep Vein Thrombosis/Pulmonary Embolism Present on Admission: No
[2021-07-10 08:59] VITALS: BP 131/52
[2021-07-10] MEDS: LORATADINE 10 MG TABLET PO (08:59)
[2021-07-10] MEDS: buPROPion XL 150 MG TAB PO (08:59)
[2021-07-10] MEDS: DOCUSATE 100 MG CAPSULE PO (08:59)
[2021-07-10] MEDS: AMLODIPINE 5 MG TABLET PO (08:59)
[2021-07-10] MEDS: LOSARTAN 50 MG TABLET 100 MG PO (08:59)
[2021-07-10] MEDS: FUROSEMIDE 40 MG TABLET 80 MG PO (09:02)
[2021-07-10 09:04] VITALS: RESP 16; O2SAT 92
[2021-07-10] MEDS: MELOXICAM 7.5 MG TABLET 15 MG PO (09:04)
[2021-07-10] MEDS: hydroCHLOROthiazide 25 MG TABLET PO (09:08)
--- NOTE | 2021-07-10 10:30 | PT.IPTN ---
Current Diagnoses Spinal stenosis, lumbar region with neurogenic claudication (07/08/21) Arthrodesis status (07/08/21) Surgery Performed Operation Date: 07/08/21 08:45 Actual Procedures p L2-3, L3-4 TLIF, L4-5 lumbar HWR, exploration of fusion, repeat laminectomy, reinsertion of hardware, L2-5 PSF w. insturmentation-Robot - Neeru Gutierrez MD Physical Therapy Treatment Note M2 PT-IP Current Condition Start: 07/09/21 12:25 Freq: NEEDED Status: Active Protocol: Document 07/09/21 10:03 AB (Rec: 07/09/21 12:38 AB [id number]) Physical Therapy Current Condition Current Condition Evaluation Date 07/09/21 Treatment Diagnosis s/p L2-3, 3-4 TLIF; difficulty in walking Onset Date 07/08/21 M3 PT-IP Subjective Start: 07/09/21 12:25 Freq: NEEDED Status: Active Protocol: Document 07/10/21 10:30 AB (Rec: 07/10/21 13:35 AB [id number]) Subjective Physical Therapy Visit Type Type Treatment Note Visit Start Time 10:30 Visit Stop Time 12:25 Total Visit Minutes 42 Notes split visits: 1030 to 1102 and 1215 to 1225 Number of ENVELOPE SEALER OPERATOR Visits 0 Physical Therapy Visit Comments Patient Comments agreeable to do PT; spouse in room for caregiver training Therapy Pain Assessment Pain When Pain Assessed At Rest Pain Present Pain Present Pain Reported Location Back Intensity 4 Scale Used Numeric (0 - 10) M4 PT-IP Mobility and Gait Start: 07/09/21 12:25 Freq: NEEDED Status: Active Protocol: Document 07/10/21 10:30 AB (Rec: 07/10/21 13:35 AB [email or web address]) PT-Bed Mobility Assessment Rolling Type of Rolling Log Rolling Level of Assist Maximal Assistance Supine to Sit Supine to Sit Maximum Assistance PT-Transfer Assessment Sit to and From Stand Sit to and from Stand Moderate Assistance,1 Person Assistance,Use of Upper Extremities Equipment Transfer Assistive Device Gait Belt,Front Wheeled Walker Orthotic/Prosthetic Devices or Brace: No Transfers Transfer Destination Chair Transfer Technique ambulated Transfer Ability Level of Assist Moderate Assistance,1 Person Assistance,Use of Upper Extremities Comments Mobility Comments spouse in room for caregiver training. reviewed back precautions and log roll bed mobility. spouse was able to assist pt with log roll bed mobility. able to put safety belt on pt and assist pt with sit to stand, transfers and ambulation using FWW. spouse assisted pt with toilet transfers and able to assist with toilet needs. pt ambulated towards the sink using FWW with spouse assisting and able to maintain standing balance while completing handwashing. pt ambulated out of the room and ambulated to the platform step and completed up/down step using FWW with spouse assisting and completed 2 sets . pt ambulated back to the room and sat on the chair. pt and spouse does not have any other questions but stated that they are not expecting him to go home today and prefers to go home tomorrow. informed pt and spouse to talk to the doctor or PA regarding their request of staying another night. Left pt sitting on chair with spouse in room. call light and table placed within reach. OT informed PT that pt and spouse has questions regarding car transfers. Checked on pt and spouse again to address concerns. educated pt and spouse regarding car transfers . spouse was able to comprehend. pt and spouse comfortable of going home and no other questions. Gait Assessment Gait Gait Assistance Required: Minimum Assistance,Moderate Assistance,1 Person Assist Distance (Feet) 40 Able to Maintain Weight Bearing Status Yes During Gait Assistive Devices Assistive Device Gait Belt,Front Wheeled Walker Orthotic/Prosthetic Devices or Brace: No Gait Deviations General Gait Pattern Antalgic,Decreased Stride Length,Decreased Feet Clearance,Flexed Trunk,Wide Based Gait Factors Limiting Gait Function Factors Limiting Gait Function Decreased Activity Tolerance, Decreased Strength,Difficulty Following Directions,Limited Range of Motion,Pain,Poor Balance,Poor Safety Awareness, Respiratory Distress Stair Climbing Assessment Evaluation Level of Assist On Stairs Moderate Assistance Devices Stair Climbing Assistive Devices Front Wheel Walker Technique/Endurance Stair Climbing Direction Ascend and Descend Stair Climbing Technique Step to Step Number of Steps Climbed 1 Stair Climbing Set # Repetitions (reps) 2 M5 PT-IP Objective Assessments Start: 07/09/21 12:25 Freq: NEEDED Status: Active Protocol: Document 07/09/21 10:03 AB (Rec: 07/09/21 12:38 AB [id number]) Orientation Orientation/Cognition Level of Alertness Alert Orientation Name,Place,Situation Language Function Ability No Deficits Noted Safety Awareness Decreased Safety Awareness Memory Description No Deficits Noted Gross Range of Motion Lower Extremity ROM Assessment Within Functional Limits Strength Lower Extremity Strength Hip 4-/5 Knee 4-/5 Sensation Assessment Sensation Gross Sensation Right LE Impaired,Left LE Impaired Sensation Description Numbness Comments Sensation Comments stated RLE 50% sensation Muscle Tone Muscle Tone WNL Yes M6 PT-IP Treatment Start: 07/09/21 12:25 Freq: NEEDED Status: Active Protocol: Document 07/10/21 10:30 AB (Rec: 07/10/21 13:35 AB [email or web address]) Physical Therapy Treatment Education Education Provided Precautions M7 PT-IP Assessment and Plan Start: 07/09/21 12:25 Freq: NEEDED Status: Active Protocol: Document 07/10/21 10:30 AB (Rec: 07/10/21 13:35 AB [email or web address]) PT Summary Assessment and Plan Potential Rehabilitation Potential Fair Summary Impairments Pain,ROM,Strength,Balance, Coordination,Sensation,Tone, Cognition,Bed Mobility, Transfers,Gait,Activity Tolerance Progress Towards Goals Slow Progress due to Activity Tolerance Assessment Summary caregiver training conducted and spouse is able to assist pt with mobilities safely. pt and spouse wants to confirm HHPT recommendation and informed child welfare caseworker. pt may go home when medically stable . Goals Bed Mobility Goal Independent Transfer Goal Independent,Front Wheeled Walker Gait Goal Independent,Front Wheel Walker Gait Distance 200 Days to Meet Goals 5 Frequency of Treatment Frequency Of Treatment Twice a Day Treatment Plan Physical Therapy Treatment Plan Bed Mobility Training,Transfer Training,Gait Training, Therapeutic Exercise,Balance Retraining,Post Op Education, Discharge Planning,Hot or Cold Pack,Neuromuscular Re-ed, Coordination Retraining,Manual Therapy Precautions Lumbar Precautions Log Roll,No Twisting,Limit Bending,Lifting Restriction of 10 lbs,Gait Belt above Incisional Area Recommendations To Nursing Amount of Assist Needed 1 Person Assist Discharge Recommendations PT Discharge Recommendations Home with Assistance,Home Health Transportation Needs at Discharge Private Vehicle
[2021-07-10 12:02] VITALS: BP 157/49; PULSE 92; RESP 18; TEMP 37.1; O2SAT 92
--- NOTE | 2021-07-10 13:38 | OT.IP.TRT ---
Current Diagnoses Spinal stenosis, lumbar region with neurogenic claudication (07/08/21) Arthrodesis status (07/08/21) Surgery Performed Operation Date: 07/08/21 08:45 Actual Procedures p L2-3, L3-4 TLIF, L4-5 lumbar HWR, exploration of fusion, repeat laminectomy, reinsertion of hardware, L2-5 PSF w. insturmentation-Robot - Neeru Gutierrez MD Occupational Therapy Treatment Note M2 OT-IP Current Condition Start: 07/09/21 14:35 Freq: Status: Active Protocol: Document 07/09/21 12:50 [facility] (Rec: 07/09/21 17:42 [facility] [id number]) Occupational Therapy Current Condition Current Condition Evaluation Date 07/09/21 Treatment Diagnosis S/p L2-3, l3-4 TLIF removal posterior L4-5 hardware and placement L2-5 Diagnosis Onset Date 07/08/21 Post Operative Precautions Lumbar Precautions Log Roll,No Twisting,Limit Bending,Lifting Restriction of 10 lbs,Gait Belt above Incisional Area M3 OT- IP Subjective and Pain Start: 07/09/21 14:35 Freq: Status: Active Protocol: Document 07/10/21 13:41 [facility] (Rec: 07/10/21 13:53 [facility] [id number]) OT- Subjective Occupational Therapy Visit Type Type Treatment Note Visit Start Time 11:05 Visit Stop Time 13:38 Total Visit Minutes 56 Occupational Therapy Visit Comments Patient Comments Pt's present for caregiver training. Patient/Caregiver Goals To go home. OT Pain Assessment Pain When Pain Assessed At Rest Pain Present Pain Present Denied Pain M4 OT- IP ADL's Start: 07/09/21 14:35 Freq: Status: Active Protocol: Document 07/10/21 13:41 [facility] (Rec: 07/10/21 13:53 [facility] [id number]) OT ADL-Grooming General Evaluation Grooming Ability Independent OT ADL-Dressing General Eval Upper Body Dressing Ability Minimal Assistance Lower Body Dressing Ability Maximum Assistance Comments OT Dressing Comments Pt tired from showering and needing assist with his socks/ shoes/ and pants. OT ADL-Bathing General Evaluation Bathing Ability Moderate Assistance Areas Needing Assistance Wash/Dry Back,Wash/Dry Perineal Area,Wash/Dry Lower Extremities Comments OT Bathing Comments Pt's able to safely assist pt for all needs of ADL 's. M5 OT- IP IADL's Start: 07/09/21 14:35 Freq: Status: Active Protocol: Document 07/09/21 12:50 [facility] (Rec: 07/09/21 17:42 [facility] [id number]) OT-Instrumental Activities of Daily Living Home Safety Awareness Home Safety Comments Pt has a supportive to assist for his needs. M6 OT- IP Functional Cognition Start: 07/09/21 14:35 Freq: Status: Active Protocol: Document 07/10/21 13:41 [facility] (Rec: 07/10/21 13:53 [facility] [id number]) Cognitive Factors Limiting Selfcare Function Cognitive Comments Cognitive Assessment Comments A little forgetful today and needing reminders for safety. M7 OT- IP Mobility and Balance Start: 07/09/21 14:35 Freq: Status: Active Protocol: Document 07/10/21 13:41 [facility] (Rec: 07/10/21 13:53 [facility] [id number]) OT-Transfer Assessment Sit to and From Stand Sit to and from Stand Moderate Assistance,1 Person Assistance Transfers Transfer Ability Contact Guard Assistance, Moderate Assistance,1 Person Assistance Technique Transfer Destination Car,Chair,Shower Stall, Wheelchair Transfer Technique Stand Step Pivot Devices Transfer Assistive Devices Gait Belt,Front Wheeled Walker Comments Mobility Comments Pt MODA to stand from lower surfaces. Once on his feet CGA with FWW. Able to assist pt to the car as pt states prior has difficulty to get into the car. Suggested to get another for a more appropriate height . Able to go down with the pt to help him into the car. Pt able to back up all the way and get his bottom to reach part of the seat and then needing assist to get his foot on the car running board and able scoot himself up to the car seat and then needing assist to get his other foot up to scoot all the way back into seat. Pt then needing assist to get his feet into the car. OT- Balance Assessment Sitting Balance and Reactions Static Sitting Balance Ability Good Dynamic Sitting Balance Ability Good Standing Balance and Reactions Static Standing Balance Ability Fair Dynamic Standing Balance Ability Fair M8 OT- IP Objective Assessments Start: 07/09/21 14:35 Freq: Status: Active Protocol: Document 07/09/21 12:50 [facility] (Rec: 07/09/21 17:42 [facility] [id number]) OT-Muscle Tone Assessment Muscle Tone WNL Yes M9 OT- IP Assessment and Plan Start: 07/09/21 14:35 Freq: Status: Active Protocol: Document 07/10/21 13:41 [facility] (Rec: 07/10/21 13:53 [facility] [id number]) OT Summary Assessment and Plan Potential Rehabilitation Potential Good Analytic Complexity at Evaluation Low Summary OT Impairments Pain,Balance,Functional Mobility,Grooming,Dressing, Toileting,Bathing,Toilet Transfers,Shower Transfers, Activity Tolerance Progress Towards Goals Progressing Toward Goals Assessment Summary Able to complete caregiver training with his for all ADl needs and able to assist pt for the shower as well. Pt needing assist to the car. Pt going home with 24 /7 assist. Goals Grooming Goal Independent Dressing Goal Minimal Assistance Toileting Goal Independent Bathing Goal Independent Toilet Transfer Goal Independent Shower Transfer Goal Contact Guard Assistance Patient/Caregiver Education Goal Demonstrate Post-Op Precautions,Caregiver Independent Assisting Patient Days to Meet Goals 5 Discharge Recommendations OT Discharge Recommendations Home with 24/7 Assist Available,Home Health
--- NOTE | 2021-07-10 13:39 | PC.NURSE ---
Pt is dressed and ready for discharge home with Spouse. IV has been removed. Went over d/c instructions -discussed d/c meds, time of last dose, reviewed stroke education, s/s of infection, following back precautions, reminded both to not exceed 3000mg of Acetaminophen in 24 hours due to live toxicity, showering and follow up. Encouraged Pt to drink plenty of fluids to prevent constipation or dehydration, no driving while on narcotics, and to consider bowel meds to prevent constipation as Pt states he has a hx of this. Pt and Spouse denied further questions and Pt was taken out to pov by w/c by MOLD MAKER HELPER and OT for assist, with all belongings.
--- NOTE | 2021-07-11 07:57 | CM.DPNOTE ---
DC Note Late Entry Home w/spouse and [facility], referral w/ completed and signed F2F w/HH order faxed to [facility]. Patient and family agreeable to plan JW
== END 2021-07-10 14:01 | disposition home health service (06) | DRG 454 ==
LOC: OR 07:45 → AC 12:40
PROVIDERS: Admitting Provider Orthopaedic Surgery Orthopaedic Surgery of the Spine; PCP Family Medicine; Referring Provider Orthopaedic Surgery Orthopaedic Surgery of the Spine; Visit Provider Orthopaedic Surgery Orthopaedic Surgery of the Spine
PROC: 0SG10AJ Fusion of 2 or more Lumbar Vertebral Joints with Interbody Fusion Device, Posterior Approach, Anterior Column, Open Approach (ICD-10-PCS; principal; 2021-07-08 08:45)
DX: M48.062 Spinal stenosis, lumbar region with neurogenic claudication (principal); T84.216A Breakdown (mechanical) of internal fixation device of vertebrae, initial encounter; M96.0 Pseudarthrosis after fusion or arthrodesis; M54.16 Radiculopathy, lumbar region; M96.1 Postlaminectomy syndrome, not elsewhere classified; I10 Essential (primary) hypertension; N40.0 Benign prostatic hyperplasia without lower urinary tract symptoms; E78.5 Hyperlipidemia, unspecified; F32.A Depression, unspecified; E03.9 Hypothyroidism, unspecified; Z20.822 Contact with and (suspected) exposure to COVID-19; Z98.1 Arthrodesis status; Z87.891 Personal history of nicotine dependence
CPT/HCPCS: 36415; 72100; 76000; 82962; 85014; 85018; 87635; 94760; 97162; 97165; 97530; 97535; C9803; C1713; C1831; C9290; J0171; J0330; J0690; J1100; J1170; J2250; J2405; J2704; J3010

== ENCOUNTER 2021-09-16 14:21 | Day surgery (SDC) | payer MEDICARE, OTHER, SELFPAY ==
[2021-07-08 16:11] VITALS: BMI 34.1
[2021-09-15 11:18] VITALS: BMI 34.4
[2021-09-16 14:52] VITALS: BP 175/72; PULSE 74; RESP 16; TEMP 37.1; O2SAT 98
[2021-09-16 15:01] LABS: COVID19 -Nasal RAPID POSITIVE (Negative)
[2021-09-16 15:04] VITALS: BMI 34.4
[2021-09-16] MEDS: LACTATED RINGERS 1,000 ML 42 ML IV (15:23)
--- NOTE | 2021-09-16 15:24 | SUR.PREOP ---
Skin prep not done in pre-op due to open wound.
--- NOTE | 2021-09-16 15:43 | PM.PREOP ---
Pre-operative Note COVID-19 COVID-19 status: Positive Result date/Date tested (Pos, Neg/Pending): 09/16/21 Criteria for continued procedure: Expected advancement of disease process, Possibility delay results in more complex future surgery or treatment, Increased loss of function, Continuing or worsening of significant or severe pain and Deterioration of the patient's condition or overall health Interval Note History & Physical reviewed/Exam performed by Physician: Yes Changes to H&P: No
--- NOTE | 2021-09-16 16:36 | PM.OP.1 ---
Operative Date/Time/Diagnoses Date of procedure: 09/16/21 Time of procedure: 16:45 Pre-op diagnosis: 1. Lumbar wound dehiscence Post-op diagnosis: same Procedure & Clinicians Procedure: 1. Lumbar wound irrigation and debridement of skin and subcutaneous tissue 2. Lumbar wound closure Same procedure as scheduled: Yes Indications: Mr. Leigh is 1 month s/p lumbar fusion. He was found to have a left sided 1 cm wound dehiscience on the caudal portion of his incision. The wound was attempted for healing with simple wound care. It is still open with exposed subcutanous granulation tissue more than 1 month post surgery. After discussing risks and benefits of surgery, patient is scheduled for wound I&D and closure. Surgeon: Neeru Gutierrez Click Yes if Unassisted: Yes Anesthesia Type: General Operative Notes Closure Type: primary Estimated Blood Loss (mL): 0 Procedure in detail: Patient was seen in the preoperative area. Risks and benefits of the surgery was discussed with the patient. Informed consent was obtained from the patient and placed in the chart. Surgical site was marked. Patient was taken to the operative room. General anesthesia was administered. Prophylactic antibiotic was given to the patient less than 30 min before the incision was made. Patient was placed into a semilateral position on a flat top table. Patient's back was then prepped and draped in the sterile fashion. Time-out was performed at this time. Patient's left-sided incision was inspected. There is a 1.5 cm long wound on the caudal aspect of the incision. There is minimal drainage. There is exposed granulation tissue. There is no cellulitis. There is no induration or fluctuance on palpation. The wound was then extended cephalad by another inch heel order to expose the full extent of the involvement. The wound was inspected again. The dehiscence was found to be isolated to the subcutaneous layer. The deep fascial layer is intact with no exposed hardware. At this time using a 10 blade as well as a Charles, unhealthy appearing tissue was excised including skin subcutaneous tissue and muscle fascia. After excision all debridement was completed the wound was irrigated copiously with 1 L of sterile normal saline. After the irrigation and debridement was completed the wound was then re-examined. Healthy-appearing tissue was visible on all surfaces of the wound. 2-0 vicral suture was used to close the subcutaneous tissue. 2-0 nylon suture were used to close the skin in interrupted fashion. The wound was closed without any difficulty and without added stress the skin. At this time a sterile dressing was applied the patient's wound/incision. Patient was then woken up from anesthesia and transferred recovery room stable condition. There were no complications. Complications: none Post-operative Condition: stable Disposition: PACU Plan for aftercare: Discharge to home
[2021-09-16] MEDS: CEFAZOLIN 2 GM/20 ML SYRINGE IV (16:50)
--- NOTE | 2021-09-16 16:57 | SUR.OPER ---
Lateral head on pillow, gel axillary roll in place, bottom leg bent with gel pad under knee to foot, upper leg straight and supported with pillows. Upper arm supported by pillows and secured over bottom arm to padded arm board. Safety belt at hip, tape over blanket lower legs.
[2021-09-16] MEDS: BUPIVACAINE 0.25% (PF) VIAL 8 ML INJ (17:15)
[2021-09-16 17:45] VITALS: BP 143/65; PULSE 71; RESP 16; TEMP 35.5; O2SAT 97
[2021-09-16 17:50] VITALS: BP 114/66; PULSE 68; RESP 16; O2SAT 97
[2021-09-16 17:55] VITALS: BP 153/69; PULSE 70; RESP 16; O2SAT 96
[2021-09-16 18:09] VITALS: BP 159/63; PULSE 64; RESP 16; O2SAT 97
== END 2021-09-16 18:20 | disposition home or self-care (01) ==
PROVIDERS: PCP Family Medicine; Referring Provider Orthopaedic Surgery Orthopaedic Surgery of the Spine; Visit Provider Orthopaedic Surgery Orthopaedic Surgery of the Spine
PROC: (CPT 10180; principal; 2021-09-16 15:15)
DX: T81.31XA Disruption of external operation (surgical) wound, not elsewhere classified, initial encounter (principal); Z98.1 Arthrodesis status; U07.1 COVID-19; G47.33 Obstructive sleep apnea (adult) (pediatric); J44.9 Chronic obstructive pulmonary disease, unspecified; I10 Essential (primary) hypertension; I25.10 Atherosclerotic heart disease of native coronary artery without angina pectoris
CPT/HCPCS: 11042; 87635; J0690; J2250; J2704; J3010

== ENCOUNTER → 2022-01-20 17:49 | Outpatient (CLI) | payer MEDICARE, OTHER, SELFPAY ==
[2021-07-08 16:11] VITALS: BMI 34.1
--- NOTE | 2022-01-20 | DI.RAD.S_ITS ---
PROCEDURE: XR FOOT LT MIN 3V INDICATIONS: LEFT FOOT PAIN TECHNIQUE: 3 views of the foot were acquired. COMPARISON: [facility], CR, XR ANKLE LT MIN 3V, 01/20/2022, 18:13. FINDINGS: Bones: Ill-defined lucency is noted the distal fibular tip. It is better appreciated on x-ray ankle 01/20/2022. No suspicious bony lesions. Caxh-lv-qhimeldw scattered IP degenerative narrowing. Minimal to mild midfoot degenerative change. Soft tissues: No tibiotalar joint effusion. Achilles tendon appears normal. IMPRESSION: IP and midfoot degenerative changes. Ill-defined nondisplaced distal fibular tip lucency. This could represent subacute fracture and recommend correlation point tenderness. Please see ankle x-ray report of 01/20/2022 for further details. Dictated by: Alia Monterroso M.D. on 01/21/2022 at 13:05 Approved by: Alia Monterroso M.D. on 01/21/2022 at 13:07
--- NOTE | 2022-01-20 | DI.RAD.S_ITS ---
PROCEDURE: XR ANKLE LT MIN 3V INDICATIONS: LEFT ANKLE PAIN TECHNIQUE: 3 views of the ankle were acquired. COMPARISON: None. FINDINGS: Bones: No fractures or dislocations. Ankle mortise is normally aligned. No suspicious bony lesions. Calcaneal spur is present. No erosions. Soft tissues: No tibiotalar joint effusion. Achilles tendon appears normal. IMPRESSION: No visualized acute fracture or dislocation. However, if clinical concern and/or pain persist, short interval imaging followup in 7-10 days is recommended, as occult injury cannot be definitively excluded. Dictated by: Alia Monterroso M.D. on 01/21/2022 at 13:05 Approved by: Alia Monterroso M.D. on 01/21/2022 at 13:05
== END ==
PROVIDERS: PCP Family Medicine; Referring Provider Family Medicine; Visit Provider Family Medicine
DX: M25.572 Pain in left ankle and joints of left foot (principal); M77.32 Calcaneal spur, left foot
CPT/HCPCS: 73600; 73610; 73620; 73630

== ENCOUNTER → 2022-02-10 10:52 | Outpatient (CLI) | payer MEDICARE, OTHER, SELFPAY ==
[2021-07-08 16:11] VITALS: BMI 34.1
--- NOTE | 2022-02-10 | DI.RAD.S_ITS ---
PROCEDURE: XR CHEST 2V INDICATIONS: COUGH TECHNIQUE: 2 views of the chest were acquired. COMPARISON: [facility], CR, XR CHEST 1V, 09/30/2019, 16:15. [facility], CR, XR CHEST 2V, 12/19/2018, 11:06. FINDINGS: Surgical changes and devices: None. Lungs and pleura: Mild streaky opacities present at both lung bases. No lobar consolidation identified. No pleural effusion or pneumothorax. Mediastinum: Mediastinal contours are normal. Heart size is normal. Bones and chest wall: No suspicious bony abnormalities. Soft tissues appear unremarkable. IMPRESSION: Mild nonspecific bibasilar pulmonary opacities are present. Differential considerations include atelectasis, aspiration, or pneumonia. Dictated by: Cash Borrego M.D. on 02/10/2022 at 18:49 Approved by: Cash Borrego M.D. on 02/10/2022 at 18:51
== END ==
PROVIDERS: PCP Family Medicine; Referring Provider Family Medicine; Visit Provider Family Medicine
DX: R05.9 Cough, unspecified (principal)
CPT/HCPCS: 71046

== ENCOUNTER → 2022-06-10 14:55 | Outpatient (CLI) | payer OTHER, SELFPAY ==
[2021-07-08 16:11] VITALS: BMI 34.1
--- NOTE | 2022-06-10 | DI.RAD.S_ITS ---
PROCEDURE: XR CHEST 2V INDICATIONS: pneumonia TECHNIQUE: 2 views of the chest were acquired. COMPARISON: CR, XR CHEST 2V, 09/12/2017, 10:15. [facility], CR, XR CHEST 1V, 09/30/2019, 16:15. [facility], CR, XR CHEST 2V, 02/10/2022, 11:04. FINDINGS: Surgical changes and devices: None. Lungs and pleura: 2 cm rounded opacity involving the right lower lobe and bibasilar patchy airspace opacities are also present.. No pleural effusions or pneumothorax. Mediastinum: Mediastinal contours are normal. Heart size is normal. Bones and chest wall: No suspicious bony abnormalities. Soft tissues appear unremarkable. IMPRESSION: 1. 2 cm rounded masslike opacity involving the right lower lobe and there are bibasilar patchy airspace opacities suspicious for pneumonia. Lung mass cannot be excluded and follow-up chest x-ray is recommended in 30 days to assure complete clearing of the above-mentioned radiopacities. Dictated by: Hari DAY Interpreted: Juanis Lazaro MD on 06/10/2022 at 15:25 Transcribed by: NOEMI on 06/10/2022 at 15:28 Approved by: Juanis Lazaro M.D. on 06/10/2022 at 15:41
== END ==
PROVIDERS: PCP Family Medicine; Referring Provider Registered Nurse; Visit Provider Registered Nurse
DX: J18.9 Pneumonia, unspecified organism (principal)
CPT/HCPCS: 71046

== ENCOUNTER → 2022-07-15 10:58 | Outpatient (CLI) | payer OTHER, SELFPAY ==
[2021-07-08 16:11] VITALS: BMI 34.1
--- NOTE | 2022-07-15 | DI.RAD.S_ITS ---
PROCEDURE: XR CHEST 2V INDICATIONS: COUGH TECHNIQUE: 2 views of the chest were acquired. COMPARISON: [facility], CR, XR CHEST 2V, 06/10/2022, 14:56. [facility], CR, XR CHEST 2V, 02/10/2022, 11:04. FINDINGS: Surgical changes and devices: None. Lungs and pleura: Lung volumes are low. Mild perihilar opacities persist, but previous right lung density and lower lung densities are less conspicuous. Mediastinum: Heart size is at the upper limit of normal. Bones and chest wall: No suspicious bony abnormalities. Soft tissues appear unremarkable. IMPRESSION: Previous right lung density and lower lung opacities are slightly less conspicuous. However, mild persistent perihilar opacities, which may be infectious or inflammatory, possibly bronchitis in the setting of cough. Consider future imaging surveillance to assess for resolution. Dictated by: Keegan Hull M.D. on 07/15/2022 at 12:25 Approved by: Keegan Hull M.D. on 07/15/2022 at 12:28
== END ==
PROVIDERS: PCP Family Medicine; Referring Provider Registered Nurse; Visit Provider Registered Nurse
DX: R05.9 Cough, unspecified (principal)
CPT/HCPCS: 71046

== ENCOUNTER → 2022-09-08 16:24 | Outpatient (CLI) | payer OTHER, SELFPAY ==
[2021-07-08 16:11] VITALS: BMI 34.1
--- NOTE | 2022-09-08 16:37 | DI.RAD.S_ITS ---
PROCEDURE: XR CHEST 2V INDICATIONS: Cough TECHNIQUE: 2 views of the chest were acquired. COMPARISON: [facility], CR, XR CHEST 2V, 07/15/2022, 10:57. FINDINGS: Surgical changes and devices: None. Lungs and pleura: Right upper lobe pulmonary infiltrate. Pleural spaces are clear. Mediastinum: Mediastinal contours are normal. Heart size is normal. Bones and chest wall: No suspicious bony abnormalities. Soft tissues appear unremarkable. IMPRESSION: Right upper lobe infiltrate consistent with pneumonia Approved by: Pineda Solitario M.D. on 09/09/2022 at 11:54
== END ==
PROVIDERS: PCP Family Medicine; Referring Provider Family Medicine; Visit Provider Family Medicine
DX: R50.9 Fever, unspecified; R05.9 Cough, unspecified
CPT/HCPCS: 71046

== ENCOUNTER 2022-09-10 14:08 | Inpatient (IN) | payer OTHER, SELFPAY ==
[2021-07-08 16:11] VITALS: BMI 34.1
[2022-09-10 14:23] VITALS: BP 152/66; PULSE 78; RESP 24; TEMP 36.9; O2SAT 89; BMI 33.7
--- NOTE | 2022-09-10 14:30 | DI.RAD.S_ITS ---
PROCEDURE: XR CHEST 1V INDICATIONS: Shortness of breath TECHNIQUE: One view of the chest was acquired. COMPARISON: [facility], CR, XR CHEST 2V, 09/08/2022, 16:33. FINDINGS: Surgical changes and devices: None. Lungs and pleura: Persistent right mid lobe opacity, unchanged. Mediastinum: Mediastinal contours appear normal. Heart size is enlarged Bones and chest wall: No suspicious bony lesions. Overlying soft tissues appear unremarkable. IMPRESSION: Persistent right mid lobe opacity unchanged and suggestive of pneumonia. Recommend interval followup to document resolution and exclude presence of underlying noninfectious/noninflammatory, potentially neoplastic mass. Dictated by: Alia Monterroso M.D. on 09/10/2022 at 15:19 Approved by: Alia Monterroso M.D. on 09/10/2022 at 15:20
[2022-09-10 14:54] LABS: Add Manual Diff / Slide Review NO; Basophils Absolute Auto 0 /uL (0-100); Basophils Percent Auto 0.2 % (0-2); Eosinophils Absolute Auto 0 /uL (0-450); Hematocrit 30.5 % (41-53); Hemoglobin 10.1 g/dL (13.5-17.5); Lymphocytes Absolute Auto 800 /uL (1100-4500); Lymphocytes Percent Auto 3.9 % (25-40); Mean Corpuscular HGB Conc 33.2 % (30-36); Mean Corpuscular Hemoglobin 28.9 PG (26-34); Mean Corpuscular Volume 87.2 fL (80-100); Monocytes Absolute Auto 800 /uL (0-900); Monocytes Percent Auto 3.8 % (3-14); Neutrophils Absolute Auto 18800 /uL (1500-7000); Neutrophils Percent Auto 92.1 % (50-75); Platelet Count 137 X10^3/uL (150-400); Red Cell Distribution Width 18.5 % (11.6-14.8); White Blood Cell Count 20.4 X10^3/uL (4.5-11.0)
[2022-09-10 14:59] LABS: INR 1.2 (0.9-1.3); Prothrombin Time 13.2 SECONDS (10.1-12.7)
[2022-09-10 15:04] LABS: Lactate (Lactic Acid) 1.2 mmol/L (0.7-2.1)
[2022-09-10 15:05] LABS: Alanine Aminotransferase 31 IU/L (<50); Albumin 3.7 g/dL (3.5-5.0); Albumin Globulin Ratio 1.2 (1.0-2.8); Alkaline Phosphatase 93 U/L (38-126); Aspartate Aminotransferase 45 IU/L (17-59); BUN Creatinine Ratio 21.6 (6-22); Bilirubin Total 0.6 mg/dL (0.2-1.3); Blood Urea Nitrogen 64 mg/dL (9-20); Calcium 8.8 mg/dL (8.4-10.2); Carbon Dioxide 29 mmol/L (22-32); Chloride 95 mmol/L (98-107); Estimated Glomerular Filt Rate 21 mL/min (>60); Globulin 3.2 g/dL (1.7-4.1); Glucose 123 mg/dL (80-110); HEMOLYSIS < 15 (0-50); Potassium 3.3 mmol/L (3.4-5.1); Sodium 133 mmol/L (137-145); Total Protein 6.9 g/dL (6.3-8.2)
[2022-09-10 15:16] LABS: NT-proBNP (BNP-Adult 18+) 669 pg/mL (<450); Troponin I 0.048 ng/mL (0.01-0.034)
[2022-09-10] MEDS: SODIUM CHLORIDE 0.9% 1,000 ML 1000 ML IV (15:46)
--- NOTE | 2022-09-10 15:48 | ED.SOB ---
HPI - SOB/Dyspnea General Chief Complaint: Shortness of Breath/Dyspnea Stated Complaint: SOB, cough, fever, lower chest pain Time Seen by Provider: 09/10/22 15:31 Source: patient, RN notes reviewed, old records reviewed and other (Dr. Chambers) Mode of arrival: Family Vehicle Limitations: no limitations History of Present Illness HPI Narrative: This is a 77-year-old male with history of COPD, prior aspirin lordosis, coronary artery disease with history of cardiac stent, uses CPAP, hypertension, bilateral carotid stenosis and ADHD. Sent to the emergency department by his primary care service with suspected pneumonia. Patient states he developed symptoms the day after father's day with shortness of breath, cough which has been only mildly productive fevers of 101 F states he started to develop a little bit of chest discomfort when he coughs over the last several days. Patient states no lightheadedness or passing out. Increasing shortness of breath particularly with exertion. He is noted no orthopnea. No new swelling in his extremities. He states he would a little bit of sore throat and some nasal congestion which has been persistent but mild. Patient states he was started on Levaquin by his physician 3 days ago he states usually he gets better after about 2 days but symptoms have been a little bit worse. He has a home oxygen machine that he is supposed to use at high altitude but does not use it normally. He does note he has been weaning down his prednisone and has been at 5 mg for the past week. Patient does follow with Cardiology through [facility]. Dr. Dumont is his primary care. I spoke with Dr. Chambers who is covering for Dr. Dumont sent him in as persisting symptoms. He had a chest x-ray yesterday and was noted to have a white count of 29 on Tuesday. Related Data Home Medications Medication Instructions Recorded Confirmed Resmed Airsense 10 CPAP #1 ea 06/21/18 09/10/22 amlodipine 5 mg tablet (Norvasc) 5 mg PO BID 05/03/19 09/10/22 bupropion HCl 150 mg 24 hr tablet, 150 mg PO QAM 05/03/19 09/10/22 extended release (Wellbutrin XL) fluticasone furoate 27.5 1 spray intranasal BID 05/03/19 09/10/22 mcg/actuation nasal spray,suspension (Flonase Sensimist) levothyroxine 150 mcg capsule 200 mcg PO DAILY 05/03/19 09/10/22 rosuvastatin 40 mg tablet (Crestor) 40 mg PO DAILY 05/03/19 09/10/22 tamsulosin 0.4 mg capsule 0.4 mg PO BEDTIME 05/03/19 09/10/22 fexofenadine 180 mg tablet 180 mg PO DAILY 07/01/21 09/10/22 furosemide 40 mg tablet 80 mg PO QAM 07/01/21 09/10/22 hydrochlorothiazide 25 mg tablet 25 mg PO QMWF 07/01/21 09/10/22 irbesartan 300 mg tablet 300 mg PO DAILY 07/01/21 09/10/22 isosorbide mononitrate 60 mg 60 mg PO BID 07/01/21 09/10/22 tablet,extended release 24 hr prazosin 1 mg capsule 1 mg PO BEDTIME 07/01/21 09/10/22 aspirin 81 mg tablet 81 mg PO DAILY 09/16/21 09/10/22 Previous Rx's Medication Instructions Recorded cephalexin 500 mg capsule 500 mg PO QID #20 caps 09/16/21 Allergies Allergy/AdvReac Type Severity Reaction Status Date / Time No Known Drug Allergies Allergy Verified 09/16/21 15:15 Review of Systems Review of Systems ROS Unobtainable: All systems reviewed & are unremarkable except as noted in HPI and below Patient History Medical History Actinic keratosis ADD (attention deficit disorder) Anemia Anxiety BCC (basal cell carcinoma), face (~1979) Blood glucose elevated BPH with urinary obstruction CAD (coronary artery disease) Carotid artery disease without cerebral infarction Chronic sinusitis COPD (chronic obstructive pulmonary disease) Depression Diastolic dysfunction Excessive daytime sleepiness Fungal pneumonia (2017) GERD (gastroesophageal reflux disease) Hepatitis B Hepatitis C (~2013) History of heroin abuse HLD (hyperlipidemia) HTN (hypertension) Hypothyroidism Memory changes Obstructive sleep apnea of adult Osteoarthritis Primary insomnia PVC's (premature ventricular contractions) RBBB (right bundle branch block) Sinus bradycardia Snoring Surgical History History of colonoscopy (05/25/19) History of hemilaminectomy (09/19/19) History of lumbar fusion (2013) History of surgery (2018) History of surgery Hx of bilateral cataract extraction (04/2019) Hx of eye surgery Hx of heart artery stent (2012) Hx of laminectomy (1996) Hx of repair of right rotator cuff (2002) Hx of sinus surgery Status post trigger finger release (2014) Social History marital status: household members: spouse Smoking Status: Former smoker alcohol intake: current substance use type: does not use Smoking Status: Former smoker alcohol intake frequency: 0-2 drinks per day Substance Use Type: former substance user and marijuana Exam Narrative Exam Narrative: GENERAL: Alert and oriented x three, elderly male in mild distress. HEENT: Head normocephalic, atraumatic, EOMI, pupils reactive, face symmetric, moist mucous membranes NECK: Supple, full range of motion CARDIOVASCULAR: Regular rate and rhythm without murmurs, rubs or gallops. 2+ edema. Nonpitting. RESPIRATORY: Breath sounds equal bilaterally, no wheezes rales or rhonchi. Mild tachypnea. Speaks in 3-4 word sentences. No accessory muscle use. ABDOMEN: Soft, nontender. Normoactive bowel sounds all 4 quadrants. No guarding or rebound, rigidity, no mass : No CVA tenderness EXTREMITIES: Normal range of motion, no clubbing. Neurovascularly intact NEUROLOGICAL: Cranial nerves II through XII grossly intact. Moving all extremities SKIN: Warm, dry, no petechiae, no rashes or lesions. Initial Vital Signs Initial Vital Signs: Vital Signs Temperature 98.5 F 09/10/22 14:23 Pulse Rate 78 09/10/22 14:23 Respiratory Rate 24 09/10/22 14:23 Blood Pressure 152/66 H 09/10/22 14:23 Pulse Oximetry 89 L 09/10/22 14:23 Oxygen Delivery Method Room Air 09/10/22 14:23 Course Orders Ordered: ED Orders 09/10/22 14:30 XR chest 1V Stat Measure peak expiratory flow ONCE RT Consult Eval and Treat NOW 09/10/22 14:42 Complete Blood Count AUTO DIFF Stat Comprehensive Metabolic Panel Stat Lactate (Lactic Acid) Stat NT-proBNP (BNP-Adult 18+) Stat Procalcitonin Stat Prothrombin Time INR Stat Troponin I Stat 09/10/22 14:55 Blood Culture Stat 09/10/22 16:38 Sputum Culture Stat 09/10/22 16:39 Troponin & CK Cardiac Panel Stat Acetaminophen (Acetaminophen 325 Mg Tablet) 650 mg PO Q6H PRN PRN Reason: Fever/Mild Pain (1-3) Hydrocodone Bitart/Acetaminophen (Hydrocodone/Acet 5/325 Tablet) 1 tab PO Q4H PRN PRN Reason: Pain, Moderate (4-6) Amlodipine Besylate (Amlodipine 5 Mg Tablet) 5 mg PO BID [facility] Bupropion HCl (Bupropion Xl 150 Mg Tab) 150 mg PO QAM [facility] Calcium Carbonate (Calcium Carbonate 500 Mg Tab) 1,000 mg PO Q4HR PRN PRN Reason: Dyspepsia Enoxaparin Sodium (Enoxaparin 30 Mg/0.3 Ml Syringe) 30 mg SUBCUT DAILY [facility] Furosemide (Furosemide 40 Mg Tablet) 80 mg PO QAM [facility] Ceftriaxone Sodium 2,000 mg/ (Sodium Chloride) 100 mls @ 200 mls/hr IV Q24H [facility] Azithromycin 500 mg/ Dextrose 250 mls @ 250 mls/hr IV Q24H [facility] Isosorbide Mononitrate (Isosorbide Mononitrate Er 30 Mg Tablet) 60 mg PO BID [facility] Magnesium Hydroxide (Magnesium Hydroxide 30 Ml Udc) 30 ml PO DAILY PRN PRN Reason: Constipation Naloxone HCl (Naloxone 0.4 Mg/Ml Vial) 0.2 mg IV Q2MIN PRN PRN Reason: Opiate Reversal Non-Formulary Medication (Aspirin) 81 mg PO DAILY [facility] Non-Formulary Medication (Fexofenadine) 180 mg PO DAILY [facility] Non-Formulary Medication (Fluticasone Furoate [Flonase Sensimist]) 1 spray NASAL BID [facility] Non-Formulary Medication (Irbesartan) 300 mg PO DAILY [facility] Non-Formulary Medication (Levothyroxine) 200 mcg PO DAILY [facility] Non-Formulary Medication (Rosuvastatin [Crestor]) 40 mg PO DAILY [facility] Prazosin HCl (Prazosin 1 Mg Capsule) 1 mg PO BEDTIME [facility] Tamsulosin HCl (Tamsulosin 0.4 Mg Capsule) 0.4 mg PO BEDTIME [facility] Discontinued Medications Sodium Chloride (Normal Saline 0.9%) 1,000 mls @ 1,000 mls/hr IV BOLUS ONE Stop: 09/10/22 16:31 Last Infusion: 09/10/22 16:48 Dose: 0 mls/hr Documented By: Admin: 09/10/22 15:46 Dose: 1,000 mls/hr Documented By: ANNABELLA Ceftriaxone Sodium 2,000 mg/ (Sodium Chloride) 100 mls @ 200 mls/hr IV NOW ONE Stop: 09/10/22 16:01 Last Infusion: 09/10/22 16:54 Dose: 0 mls/hr Documented By: Admin: 09/10/22 16:14 Dose: 200 mls/hr Documented By: NENA Azithromycin 500 mg/ Dextrose 250 mls @ 250 mls/hr IV NOW ONE Stop: 09/10/22 16:02 Last Infusion: 09/10/22 18:18 Dose: 0 mls/hr Documented By: Infusion: 09/10/22 17:44 Dose: 250 mls/hr Documented By: Infusion: 09/10/22 17:33 Dose: 0 mls/hr Documented By: Admin: 09/10/22 16:47 Dose: 250 mls/hr Documented By: ANNABELLA Azithromycin 500 mg/ Dextrose 250 mls @ 250 mls/hr IV NOW ONE Stop: 09/10/22 16:37 Last Admin: 09/10/22 18:19 Dose: Not Given Documented By: JOAQUIN Methylprednisolone (Methylprednisolone 125 Mg/2 Ml Vial) 125 mg IV NOW ONE Stop: 09/10/22 16:38 Last Admin: 09/10/22 16:47 Dose: 125 mg Documented By: ANNABELLA Vital Signs Vital signs: Vital Signs - 8 hr 09/10/22 14:23 Temperature 98.5 F Pulse Rate 78 Respiratory Rate 24 Blood Pressure 152/66 H Pulse Oximetry 89 L Oxygen Delivery Method Room Air MDM - SOB/Dyspnea Lab Data 09/10/22 14:42 09/10/22 14:42 Labs: Lab Results 09/10/22 09/10/22 09/10/22 Range/Units 14:42 14:42 14:42 WBC 20.4 H (4.5-11.0) X10^3/uL RBC 3.50 L (4.5-5.9) X10^6/uL Hgb 10.1 L (13.5-17.5) g/dL Hct 30.5 L (41-53) % MCV 87.2 (80-100) fL MCH 28.9 (26-34) PG MCHC 33.2 (30-36) % RDW 18.5 H (11.6-14.8) % Plt Count 137 L (150-400) X10^3/uL Neut % (Auto) 92.1 H (50-75) % Lymph % (Auto) 3.9 L (25-40) % Monroe % (Auto) 3.8 (3-14) % Eos % (Auto) 0.0 L (2-4) % Baso % (Auto) 0.2 (0-2) % Neut # (Auto) 31488 H (9031-3197) /uL Lymph # (Auto) 800 L (2780-2075) /uL Monroe # (Auto) 800 (0-900) /uL Eos # (Auto) 0 (0-450) /uL Baso # (Auto) 0 (0-100) /uL PT 13.2 H (10.1-12.7) SECONDS INR 1.2 (0.9-1.3) Sodium 133 L (137-145) mmol/L Potassium 3.3 L (3.4-5.1) mmol/L Chloride 95 L (98-107) mmol/L Carbon Dioxide 29 (22-32) mmol/L BUN 64 H (9-20) mg/dL Creatinine 2.96 H (0.66-1.25) mg/dL Estimated GFR 21 L (>60) mL/min BUN/Creatinine Ratio 21.6 (6-22) Glucose 123 H (80-110) mg/dL Lactate (0.7-2.1) mmol/L Calcium 8.8 (8.4-10.2) mg/dL Total Bilirubin 0.6 (0.2-1.3) mg/dL AST 45 (17-59) IU/L ALT 31 (<50) IU/L Alkaline Phosphatase 93 (38-126) U/L Troponin I 0.048 H (0.01-0.034) ng/mL NT-Pro-B Natriuret Pep 669 H (<450) pg/mL Total Protein 6.9 (6.3-8.2) g/dL Albumin 3.7 (3.5-5.0) g/dL Globulin 3.2 (1.7-4.1) g/dL Albumin/Globulin Ratio 1.2 (1.0-2.8) 09/10/22 Range/Units 14:42 WBC (4.5-11.0) X10^3/uL RBC (4.5-5.9) X10^6/uL Hgb (13.5-17.5) g/dL Hct (41-53) % MCV (80-100) fL MCH (26-34) PG MCHC (30-36) % RDW (11.6-14.8) % Plt Count (150-400) X10^3/uL Neut % (Auto) (50-75) % Lymph % (Auto) (25-40) % Monroe % (Auto) (3-14) % Eos % (Auto) (2-4) % Baso % (Auto) (0-2) % Neut # (Auto) (0320-6633) /uL Lymph # (Auto) (5786-9296) /uL Monroe # (Auto) (0-900) /uL Eos # (Auto) (0-450) /uL Baso # (Auto) (0-100) /uL PT (10.1-12.7) SECONDS INR (0.9-1.3) Sodium (137-145) mmol/L Potassium (3.4-5.1) mmol/L Chloride (98-107) mmol/L Carbon Dioxide (22-32) mmol/L BUN (9-20) mg/dL Creatinine (0.66-1.25) mg/dL Estimated GFR (>60) mL/min BUN/Creatinine Ratio (6-22) Glucose (80-110) mg/dL Lactate 1.2 (0.7-2.1) mmol/L Calcium (8.4-10.2) mg/dL Total Bilirubin (0.2-1.3) mg/dL AST (17-59) IU/L ALT (<50) IU/L Alkaline Phosphatase (38-126) U/L Troponin I (0.01-0.034) ng/mL NT-Pro-B Natriuret Pep (<450) pg/mL Total Protein (6.3-8.2) g/dL Albumin (3.5-5.0) g/dL Globulin (1.7-4.1) g/dL Albumin/Globulin Ratio (1.0-2.8) Imaging Data Chest x-ray: Radiologist's Impression: Jose Leigh??77??M??1945 ? Allergy/Adv: No Known Drug Allergies (More??) Close Chest X-Ray (Signed) Alia Monterroso - 09/10/22 Chest X-Ray (Signed) AltafPineda - 09/08/22 Chest X-Ray (Signed) Keegan Hull - 07/15/22 Chest X-Ray (Signed) Juanis Lazaro - 06/10/22 Chest X-Ray (Signed) Cash Borrego - 02/10/22 Outside DI 01/20/22 Foot X-Ray (Signed) Alia Monterroso - 01/20/22 Foot X-Ray (Cancelled) 01/20/22 Ankle X-Ray (Signed) Alia Monterroso - 01/20/22 Ankle X-Ray (Cancelled) 01/20/22 Telemetry Strips 07/08/21 Lumbar Spine X-Ray (Signed) Pineda Solitario - 07/08/21 Outside EKG 06/04/[address] (Signed) Alia Monterroso - 02/23/21 Myocardial Perfusion Scan Nuc Med (Signed) Chino Watson - 05/20/20 Hip X-Ray (Signed) Cash Dixon - 04/29/20 Echocardiogram Ultrasound (Signed) Mic Vincent - 11/19/19 Brain MRI (Signed) Juanis Lazaro - 10/10/[address] (Signed) Alia Monterroso - 09/30/19 Chest X-Ray (Signed) Rogelio Solomon - 09/30/19 Lumbar Spine X-Ray (Signed) Ez Nixon - 09/19/19 Echocardiogram Ultrasound (Signed) Mic Vincent - 07/16/19 Telemetry Strips 05/25/19 Lumbar Spine MRI (Signed) Keri Scales - 05/09/19 Cervical Spine MRI (Signed) Ez Nixon - 04/30/[address] (Signed) Cristobal Martinez - 12/19/18 Wrist X-Ray (Signed) Ez Nixon - 12/19/18 Chest X-Ray (Signed) Ez Nixon - 12/19/[address] (Signed) Ez Nixon - 04/19/18 Brain MRI (Signed) LazaroMichaelrai - 02/15/18 Launch?Image [address] [address] XRay Report Signed Patient: Jose Leigh MR#: [id number] : 1945 Acct:[id number] Age/Sex: 77 / M Date of Service: 09/10/22 Loc: ED Accession Number: [id number] ?? Procedure: XR chest 1V Ordering Provider: Adelia Leigh D.O. PROCEDURE:? XR CHEST 1V ? INDICATIONS:? Shortness of breath ? TECHNIQUE:? One view of the chest was acquired.? ? COMPARISON:? [facility], CR, XR CHEST 2V, 09/08/2022, 16:33. ? FINDINGS:? ? Surgical changes and devices:? None.? ? Lungs and pleura:? Persistent right mid lobe opacity, unchanged. ? Mediastinum:? Mediastinal contours appear normal.? Heart size is enlarged ? Bones and chest wall:? No suspicious bony lesions.? Overlying soft tissues appear unremarkable.? ? IMPRESSION:? Persistent right mid lobe opacity unchanged and suggestive of pneumonia. Recommend interval followup to document resolution and exclude presence of underlying noninfectious/noninflammatory, potentially neoplastic mass. ? ? Dictated by: Alia Monterroso M.D. on 09/10/2022 at 15:19 ? ? Approved by: Alia Monterroso M.D. on 09/10/2022 at 15:20?? ECG Data Attestation: I personally reviewed and interpreted this ECG as follows: Interpretation: Sinus rhythm, right bundle-branch, rate of 75 MN 188 QRS of 166 QTC of 473. Patient has prior from 09/30/2019 with no acute change. MDM Narrative Medical decision making narrative: This is a 77-year-old male with multiple cardiac and pulmonary medical issues. Patient presents with increasing shortness of breath, occasional chest pain but describes it as worse after several days of coughing. Patient is hypoxic at 89%. Patient does appear to have pneumonia, possibly some fluid overload but BNP is only 600 troponin is indeterminate suspect this is more from demand. Patient's white count is 20 improved from 20/9 after 3 days on Levaquin but appears to require an admission for IV antibiotics, O2 and close monitoring it is also noted his creatinine baseline. Dr. Chambers notes his GFR is typically in the 40s and he is 21 today. BUN is elevated suspect a component of dehydration. Patient was given a 1L of fluids but gentle fluids not full 30 cc/kilos bolus, IV antibiotics. Spoke with Dr. Chambers, accepts for admission. Asks for repeat troponin with CK which was ordered. Continue with current antibiotics. Admitted for inpatient pneumonia, ROSA, mild CHF. Solumedrol added. Discharge Plan Departure Patient Disposition: Admitted As Inpatient Clinical Impression: Pneumonia, Acute respiratory failure with hypoxia, Acute kidney injury superimposed on chronic kidney disease Admit Date/Time: 09/10/22 16:40 Admit Provider: Kassandra Chambers
[2022-09-10] MEDS: cefTRIAXone 2,000 MG in SODIUM CHLORIDE 0.9% 100 ML 200 MG IV (16:14)
[2022-09-10] MEDS: AZITHROMYCIN 500 MG in DEXTROSE 5% IN WATER 250 ML 250 MG IV (16:47)
[2022-09-10] MEDS: methylPREDNISolone 125 MG/2 ML VIAL IV (16:47)
[2022-09-10 17:55] VITALS: BP 141/51; PULSE 77; RESP 24; TEMP 37.5; O2SAT 96
[2022-09-10 18:11] VITALS: BMI 34.4
--- NOTE | 2022-09-10 19:05 | PM.HP.1 ---
History of Present Illness History of Present Illness Date Patient Seen: 09/10/22 Time Patient Seen: 19:05 Date of Onset of Symptoms: 09/06/22 Chief complaint: SOB, cough, fever, lower chest pain Narrative: This is a very pleasant 69-year-old male who is followed by Dr. Dumont for his medical care in has multiple medical problems including chronic lung disease with previous aspergillosis and previous history of smoking and resultant COPD. Patient had grandchildren come from out of town and then he became ill on TuesdaySeptember 06. I believe he saw Dr. Dumont that day. [place] [id number]. A chest x-ray was done yesterday as he was progressively worsening and it showed a infiltrate in his right upper lobe. He had had 3 doses of Levaquin 500 mg starting on Tuesday and was continued to feel poorly with a fever of 103 and difficulty breathing. He presents to the ER for evaluation today. He has oxygen at home that he uses when he goes to high [place] and he started using this earlier today. He felt he needed it because his breathing was getting worse. In the emergency department he was found to have hypoxemia requiring 2 L nasal cannula oxygen. His white blood cell count had come down to 20,000. Patient was quite dehydrated with exacerbation of chronic kidney disease and 2 L of IV fluids were given. Patient was given 2 g of IV ceftriaxone and 500 mg of azithromycin admitted to the hospital for further treatment and evaluation. Patient has a fairly extensive past medical history but states he has been in his usual health. He has been weaning down on prednisone he was on I believe 60 mg for gout and they have weaned him down and he decreased to 5 mg from 10 mg I believe about a week ago. Past medical history: 1. Pulmonary aspergillosis was treated about 5 years ago for a year 2. COPD 3. Recurrent community-acquired pneumonia 4. Anemia, iron deficiency 5. Attention deficit disorder 6. Chronic kidney disease stage 3 B 7. Coronary artery disease 8. Peripheral vascular disease with carotid involvement 9. Hypothyroidism 10. Hypertension 11. Hyperlipidemia 12. Depression and anxiety 13. Previous history of hepatitis-B and hepatitis-C status post treatment 14. GERD 15. BPH 16. Degenerative joint disease with surgery in his left hip and fusion in his lumbar spine by Dr. Go with post surgical neuropathy involving the right leg Allergies no known drug allergies Medications see list Health related behavior: Patient previously smoked but has not smoked in many years Patient does use alcohol on a regular basis Patient has a distant history in the past of heroin use Past surgical history Coronary stent 02/08/2013 L4-L5 fusion laminectomy July of 2020 Trigger finger release 04/05/2014 Family history: Dad had heart disease, stroke, diabetes, hypertension, hyperlipidemia Mom had depression and alcoholism Patient with 4 younger brothers with prostate cancer, alcohol abuse, asthma. 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 12 point review of systems is negative other than above HPI PFSH Medical History Actinic keratosis ADD (attention deficit disorder) Anemia Anxiety BCC (basal cell carcinoma), face (~1979) Blood glucose elevated BPH with urinary obstruction CAD (coronary artery disease) Carotid artery disease without cerebral infarction Chronic sinusitis COPD (chronic obstructive pulmonary disease) Depression Diastolic dysfunction Excessive daytime sleepiness Fungal pneumonia (2017) GERD (gastroesophageal reflux disease) Hepatitis B Hepatitis C (~2013) History of heroin abuse HLD (hyperlipidemia) HTN (hypertension) Hypothyroidism Memory changes Obstructive sleep apnea of adult Osteoarthritis Primary insomnia PVC's (premature ventricular contractions) RBBB (right bundle branch block) Sinus bradycardia Snoring Surgical History History of colonoscopy (05/25/19) History of hemilaminectomy (09/19/19) History of lumbar fusion (2013) History of surgery (2017) History of surgery Hx of bilateral cataract extraction (04/2019) Hx of eye surgery Hx of heart artery stent (2012) Hx of laminectomy (1996) Hx of repair of right rotator cuff (2002) Hx of sinus surgery Status post trigger finger release (2014) Social History marital status: household members: spouse Smoking Status: Former smoker alcohol intake: current substance use type: does not use Meds Home Medications and Allergies Home Medications Medication Instructions Recorded Confirmed Type Resmed Airsense 10 CPAP #1 ea 06/21/18 09/10/22 History amlodipine 5 mg tablet (Norvasc) 5 mg PO BID 05/03/19 09/10/22 History bupropion HCl 150 mg 24 hr tablet, 150 mg PO QAM 05/03/19 09/10/22 History extended release (Wellbutrin XL) fluticasone furoate 27.5 1 spray intranasal BID 05/03/19 09/10/22 History mcg/actuation nasal spray,suspension (Flonase Sensimist) levothyroxine 150 mcg capsule 200 mcg PO DAILY 05/03/19 09/10/22 History rosuvastatin 40 mg tablet (Crestor) 40 mg PO DAILY 05/03/19 09/10/22 History tamsulosin 0.4 mg capsule 0.4 mg PO BEDTIME 05/03/19 09/10/22 History fexofenadine 180 mg tablet 180 mg PO DAILY 07/01/21 09/10/22 History furosemide 40 mg tablet 80 mg PO QAM 07/01/21 09/10/22 History hydrochlorothiazide 25 mg tablet 25 mg PO QMWF 07/01/21 09/10/22 History irbesartan 300 mg tablet 300 mg PO DAILY 07/01/21 09/10/22 History isosorbide mononitrate 60 mg 60 mg PO BID 07/01/21 09/10/22 History tablet,extended release 24 hr prazosin 1 mg capsule 1 mg PO BEDTIME 07/01/21 09/10/22 History aspirin 81 mg tablet 81 mg PO DAILY 09/16/21 09/10/22 History cephalexin 500 mg capsule 500 mg PO QID #20 caps 09/16/21 09/10/22 Rx Allergies Allergy/AdvReac Type Severity Reaction Status Date / Time No Known Drug Allergies Allergy Verified 09/16/21 15:15 Exam Vital Signs (past 8 hours): - 09/10/22 14:23 09/10/22 17:55 Temperature 98.5 F 99.5 F Pulse Rate 78 77 Respiratory Rate 24 24 Blood Pressure 152/66 H 141/51 H Pulse Oximetry 89 L 96 Oxygen Delivery Method Room Air Oxygen Flow Rate 2.5 Oxygen Delivery Method Room Air Oxygen Flow Rate 2.5 Narrative Exam Narrative: T-max 99.5?, vital signs are stable, patient is resting in hospital bed with some difficulty talking due to shortness of breath but O2 sats are stable on 2 L nasal cannula oxygen. No tachypnea or intercostal retractions or nasal flaring HEENT: Mucous membranes moist and pink without any mucosal lesions. Patient has some swelling around his eyes but no ecchymosis. Pupils equal round and reactive to light Neck: Supple without adenopathy or thyromegaly Chest: He is poor air exchange with diffuse inspiratory expiratory wheezing. No rhonchi or crackles Cor: Regular rate and rhythm with distant S1-S2 Abdomen: Positive bowel sounds, soft, nontender, nondistended, obese, no hepatosplenomegaly Extremities: Trace to 1+ pitting edema pretibial Pulses intact posterior tibialis and dorsalis pedis Neurologic exam is nonfocal Objective Labs 09/10/22 14:42 09/10/22 14:42 Labs: Laboratory Results - last 24 hr 09/10/22 09/10/22 09/10/22 14:42 14:42 14:42 WBC 20.4 H RBC 3.50 L Hgb 10.1 L Hct 30.5 L MCV 87.2 MCH 28.9 MCHC 33.2 RDW 18.5 H Plt Count 137 L Neut % (Auto) 92.1 H Lymph % (Auto) 3.9 L Moore % (Auto) 3.8 Eos % (Auto) 0.0 L Baso % (Auto) 0.2 Neut # (Auto) 32268 H Lymph # (Auto) 800 L Moore # (Auto) 800 Eos # (Auto) 0 Baso # (Auto) 0 PT 13.2 H INR 1.2 Sodium 133 L Potassium 3.3 L Chloride 95 L Carbon Dioxide 29 BUN 64 H Creatinine 2.96 H Estimated GFR 21 L BUN/Creatinine Ratio 21.6 Glucose 123 H Lactate Calcium 8.8 Total Bilirubin 0.6 AST 45 ALT 31 Alkaline Phosphatase 93 Troponin I 0.048 H NT-Pro-B Natriuret Pep 669 H Total Protein 6.9 Albumin 3.7 Globulin 3.2 Albumin/Globulin Ratio 1.2 09/10/22 14:42 WBC RBC Hgb Hct MCV MCH MCHC RDW Plt Count Neut % (Auto) Lymph % (Auto) Moore % (Auto) Eos % (Auto) Baso % (Auto) Neut # (Auto) Lymph # (Auto) Moore # (Auto) Eos # (Auto) Baso # (Auto) PT INR Sodium Potassium Chloride Carbon Dioxide BUN Creatinine Estimated GFR BUN/Creatinine Ratio Glucose Lactate 1.2 Calcium Total Bilirubin AST ALT Alkaline Phosphatase Troponin I NT-Pro-B Natriuret Pep Total Protein Albumin Globulin Albumin/Globulin Ratio Assessment & Plan Assessment & Plan narrative: 77-year-old male admitted to the hospital with presumed community-acquired pneumonia failing outpatient antibiotics with now hypoxemia and respiratory failure requiring 2 L of nasal cannula oxygen. Patient is hemodynamically stable. Assessment 1. Community-acquired pneumonia Plan: Will continue ceftriaxone and azithromycin. Will consult RT. Will provide Solu-Medrol for stress dosing as well as I think there is a significant degree of a reactive component to his presentation. We will monitor very closely for fluid overload. Patient was not tested for COVID RSV or influenza so we will go ahead and do this Assessment 2. Leukocytosis suspect secondary to infection improved from outpatient Plan: Will recheck tomorrow Assessment 3. History of coronary artery disease with very minimal troponinemia and no symptoms cardiac Plan: We will trend CK and troponins. Assessment 4. Acute on chronic kidney disease Plan: Will hold hydrochlorothiazide. Will continue with oral furosemide and monitor kidney function closely. He will be also Levaquin and on ceftriaxone and azithromycin. We will continue to follow. We will decrease his irbesartan until kidney function improves. Received 2 L IV fluids and we will hold off on further reassess in the morning. Assessment 5. COPD with acute exacerbation Plan: Treat pneumonia and will provide Solu-Medrol 60 mg Q 8 hours. Will reassess in the morning. Will consult RT. Assessment 6. Hypertension Plan: Continue outpatient medications but hold Assessment 7. Hydrochlorothiazide and will decrease dosing of Arb Assessment 8. Hypothyroidism Plan: Continue outpatient thyroid medication Assessment 9. Hyperlipidemia Plan: Continue outpatient treatment. Assessment 9. Sleep apnea Plan: Patient can use his machine Assessment 10. GERD Plan continue outpatient pantoprazole 75 minutes was spent with patient discussing with ER physician, nursing, meeting with patient and examining and reviewing chart, formulating a plan and documentation Code status is full code at this time Quality VTE Deep Vein Thrombosis/Pulmonary Embolism Present on Admission: No
[2022-09-10 19:19] LABS: Procalcitonin 6.79 ng/mL (<0.5)
[2022-09-10 21:30] VITALS: BP 148/62; PULSE 75; RESP 22; TEMP 36.4; O2SAT 96
[2022-09-10 21:30] LABS: Creatine Kinase 272 U/L (55-170)
[2022-09-10] MEDS: ISOSORBIDE MONONITRATE ER 30 MG TABLET 60 MG PO (21:31)
[2022-09-10] MEDS: TAMSULOSIN 0.4 MG CAPSULE PO (21:31)
[2022-09-10] MEDS: PANTOPRAZOLE DR 40 MG TABLET PO (21:31)
[2022-09-10] MEDS: PRAZOSIN 1 MG CAPSULE PO (21:31)
[2022-09-10 21:42] LABS: Troponin I 0.038 ng/mL (0.01-0.034)
[2022-09-10 22:34] LABS: Influenza A - CEPHEID Flu A NEGATIVE (NEGATIVE); Influenza B - CEPHEID Flu B NEGATIVE (NEGATIVE); Respiratory Syncytial Virus Negative (Negative)
[2022-09-10 22:35] LABS: COVID-19 CEPHEID 4-PLEX PCR Negative (Negative)
[2022-09-10 22:36] VITALS: O2SAT 96
[2022-09-11] VITALS (7 sets, daily range): BP systolic 120–153; BP diastolic 48–66; PULSE 72–78; RESP 19–20; TEMP 35.7–36.3; O2SAT 94–96
[2022-09-11] MEDS: LEVOTHYROXINE 100 MCG TABLET 200 MCG PO (05:55)
[2022-09-11 07:26] LABS: Add Manual Diff / Slide Review NO; Basophils Absolute Auto 0 /uL (0-100); Basophils Percent Auto 0.1 % (0-2); Eosinophils Absolute Auto 0 /uL (0-450); Hematocrit 30.1 % (41-53); Hemoglobin 10.1 g/dL (13.5-17.5); Lymphocytes Absolute Auto 300 /uL (1100-4500); Lymphocytes Percent Auto 3.9 % (25-40); Mean Corpuscular HGB Conc 33.7 % (30-36); Mean Corpuscular Hemoglobin 29.5 PG (26-34); Mean Corpuscular Volume 87.5 fL (80-100); Monocytes Absolute Auto 100 /uL (0-900); Monocytes Percent Auto 1.6 % (3-14); Neutrophils Absolute Auto 7400 /uL (1500-7000); Neutrophils Percent Auto 94.4 % (50-75); Platelet Count 139 X10^3/uL (150-400); Red Blood Cell Count 3.44 X10^6/uL (4.5-5.9); Red Cell Distribution Width 19.1 % (11.6-14.8); White Blood Cell Count 7.9 X10^3/uL (4.5-11.0)
[2022-09-11 07:42] LABS: Alanine Aminotransferase 34 IU/L (<50); Albumin 3.3 g/dL (3.5-5.0); Albumin Globulin Ratio 1.1 (1.0-2.8); Alkaline Phosphatase 80 U/L (38-126); Aspartate Aminotransferase 45 IU/L (17-59); BUN Creatinine Ratio 26.2 (6-22); Bilirubin Total 0.4 mg/dL (0.2-1.3); Blood Urea Nitrogen 61 mg/dL (9-20); Calcium 8.8 mg/dL (8.4-10.2); Carbon Dioxide 28 mmol/L (22-32); Chloride 97 mmol/L (98-107); Estimated Glomerular Filt Rate 28 mL/min (>60); Globulin 3.1 g/dL (1.7-4.1); Glucose 180 mg/dL (80-110); HEMOLYSIS < 15 (0-50); Potassium 3.1 mmol/L (3.4-5.1); Sodium 136 mmol/L (137-145); Total Protein 6.4 g/dL (6.3-8.2)
[2022-09-11] MEDS: FLUTICASONE 120 SPRAY/16 GM SPRAY.SUSP NASAL (09:28)
[2022-09-11] MEDS: ENOXAPARIN 30 MG/0.3 ML SYRINGE SUBCUT (09:28)
[2022-09-11] MEDS: AMLODIPINE 5 MG TABLET PO ×2 (09:29→20:49)
[2022-09-11] MEDS: ATORVASTATIN 20 MG TABLET 80 MG PO (09:29)
[2022-09-11] MEDS: LOSARTAN 50 MG TABLET PO (09:29)
[2022-09-11] MEDS: ISOSORBIDE MONONITRATE ER 30 MG TABLET 60 MG PO ×2 (09:29→20:48)
[2022-09-11] MEDS: FUROSEMIDE 40 MG TABLET 80 MG PO (09:29)
[2022-09-11] MEDS: LORATADINE 10 MG TABLET PO (09:29)
[2022-09-11] MEDS: buPROPion XL 150 MG TAB PO (09:29)
[2022-09-11] MEDS: ASPIRIN EC 81 MG TABLET PO (09:30)
[2022-09-11] MEDS: POTASSIUM CHLORIDE 20 MEQ TAB 40 MEQ PO (11:14)
--- NOTE | 2022-09-11 12:08 | CM.DANOTE ---
Initial Discharge Assessment Note: Met with patient. Introduced self and role. Payer: [facility] [employer] and self pay PCP: Dr Dumont 77 year old male with COPD admitted yesterday with diagnosis of pneumonia, leukocytosis. Patient currently on room air. Patient is A/O, lives in [place] with spouse Daysi. He is independent and drives. Plan: When medically stable, discharge home to care of spouse. SEJ Discharge Planning/Care Management CM Discharge Assessment Start: 09/11/22 12:07 Freq: Status: Active Protocol: Document 09/11/22 12:07 (Rec: 09/11/22 12:08 [id number]) Discharge Planning Assessment Assigned Reinforcement Maker Juliana Fernandes RN/DCP Advance Directives? Yes Advance Directives on File No History Provided By Patient,Medical Record Prior Living Arrangements House Household Members spouse Type of transporation used prior to Drives own vehicle admit Independent with ADL's Yes Is patient alert and oriented? Yes Caregiver for Another No Barriers to Discharge No Transportation Arrangement Spouse or friend Referrals Initiated None needed Additional Comment Patient would like to discuss w/spouse Review Status In Process Next Review Type Continued Stay Review
--- NOTE | 2022-09-11 12:26 | PC.NURSE ---
Day shift: Pt 91%RA at rest. Ambulated in halls approx 100 feet with this [facility] underwriter and he tolerated well. O2 remained at 91% RA.
--- NOTE | 2022-09-11 12:57 | PM.PN.1 ---
Subjective Subjective Date Patient Seen: 09/11/22 Time Patient Seen: 12:57 Interval history: Patient feeling much better today. He was not able to sleep because he use the hospital CPAP machine. Feels that his cough is less and his breathing is better. He denies any chest pain. He denies any vomiting or nausea or diarrhea Exam Vital Signs (past 8 hours): - 09/11/22 06:15 09/11/22 07:59 09/11/22 07:59 Temperature 96.7 F L Pulse Rate 75 Respiratory Rate 20 Blood Pressure 153/66 H Pulse Oximetry 96 96 Oxygen Delivery Method Room Air Room Air Oxygen Flow Rate 1 09/11/22 09:02 Temperature 96.2 F L Pulse Rate 75 Respiratory Rate 20 Blood Pressure 134/65 Pulse Oximetry 95 Oxygen Delivery Method Oxygen Flow Rate 0 Oxygen Delivery Method Room Air Oxygen Flow Rate 0 Narrative Exam Narrative: Patient is afebrile and vital signs are stable. He is being weaned off his oxygen. HEENT is unremarkable Neck is supple Chest: He has improved air exchange but still diminished in the bases and still with expiratory and inspiratory wheezes Cor: Regular rate and rhythm without a murmur Abdomen: Positive bowel sounds, soft, nontender, nondistended Extremities: No edema pulses intact Objective Labs 09/11/22 07:00 09/11/22 07:00 Labs: Laboratory Results - last 24 hr 09/10/22 09/10/22 09/10/22 14:42 14:42 14:42 WBC 20.4 H RBC 3.50 L Hgb 10.1 L Hct 30.5 L MCV 87.2 MCH 28.9 MCHC 33.2 RDW 18.5 H Plt Count 137 L Neut % (Auto) 92.1 H Lymph % (Auto) 3.9 L [place] % (Auto) 3.8 Eos % (Auto) 0.0 L Baso % (Auto) 0.2 Neut # (Auto) 11297 H Lymph # (Auto) 800 L [place] # (Auto) 800 Eos # (Auto) 0 Baso # (Auto) 0 PT 13.2 H INR 1.2 Sodium 133 L Potassium 3.3 L Chloride 95 L Carbon Dioxide 29 BUN 64 H Creatinine 2.96 H Estimated GFR 21 L BUN/Creatinine Ratio 21.6 Glucose 123 H Lactate Calcium 8.8 Total Bilirubin 0.6 AST 45 ALT 31 Alkaline Phosphatase 93 Total Creatine Kinase CK-MB (CK-2) CK-MB (CK-2) Rel Index Troponin I 0.048 H NT-Pro-B Natriuret Pep 669 H Total Protein 6.9 Albumin 3.7 Globulin 3.2 Albumin/Globulin Ratio 1.2 Procalcitonin SARS-CoV-2 (PCR) Influenza A (RT-PCR) Influenza B (RT-PCR) RSV (PCR) 09/10/22 09/10/22 09/10/22 14:42 14:42 21:00 WBC RBC Hgb Hct MCV MCH MCHC RDW Plt Count Neut % (Auto) Lymph % (Auto) [place] % (Auto) Eos % (Auto) Baso % (Auto) Neut # (Auto) Lymph # (Auto) [place] # (Auto) Eos # (Auto) Baso # (Auto) PT INR Sodium Potassium Chloride Carbon Dioxide BUN Creatinine Estimated GFR BUN/Creatinine Ratio Glucose Lactate 1.2 Calcium Total Bilirubin AST ALT Alkaline Phosphatase Total Creatine Kinase 272 H CK-MB (CK-2) TNP CK-MB (CK-2) Rel Index TNP Troponin I 0.038 H NT-Pro-B Natriuret Pep Total Protein Albumin Globulin Albumin/Globulin Ratio Procalcitonin 6.79 H SARS-CoV-2 (PCR) Influenza A (RT-PCR) Influenza B (RT-PCR) RSV (PCR) 09/10/22 09/11/22 09/11/22 21:46 07:00 07:00 WBC 7.9 D RBC 3.44 L Hgb 10.1 L Hct 30.1 L MCV 87.5 MCH 29.5 MCHC 33.7 RDW 19.1 H Plt Count 139 L Neut % (Auto) 94.4 H Lymph % (Auto) 3.9 L [place] % (Auto) 1.6 L Eos % (Auto) 0.0 L Baso % (Auto) 0.1 Neut # (Auto) 7400 H Lymph # (Auto) 300 L [place] # (Auto) 100 Eos # (Auto) 0 Baso # (Auto) 0 PT INR Sodium 136 L Potassium 3.1 L Chloride 97 L Carbon Dioxide 28 BUN 61 H Creatinine 2.33 H Estimated GFR 28 L BUN/Creatinine Ratio 26.2 H Glucose 180 H Lactate Calcium 8.8 Total Bilirubin 0.4 AST 45 ALT 34 Alkaline Phosphatase 80 Total Creatine Kinase CK-MB (CK-2) CK-MB (CK-2) Rel Index Troponin I NT-Pro-B Natriuret Pep Total Protein 6.4 Albumin 3.3 L Globulin 3.1 Albumin/Globulin Ratio 1.1 Procalcitonin SARS-CoV-2 (PCR) Negative Influenza A (RT-PCR) Flu a negative Influenza B (RT-PCR) Flu b negative RSV (PCR) Negative PFSH Medical History Actinic keratosis ADD (attention deficit disorder) Anemia Anxiety BCC (basal cell carcinoma), face (~1979) Blood glucose elevated BPH with urinary obstruction CAD (coronary artery disease) Carotid artery disease without cerebral infarction Chronic sinusitis COPD (chronic obstructive pulmonary disease) Depression Diastolic dysfunction Excessive daytime sleepiness Fungal pneumonia (2017) GERD (gastroesophageal reflux disease) Hepatitis B Hepatitis C (~2013) History of heroin abuse HLD (hyperlipidemia) HTN (hypertension) Hypothyroidism Memory changes Obstructive sleep apnea of adult Osteoarthritis Primary insomnia PVC's (premature ventricular contractions) RBBB (right bundle branch block) Sinus bradycardia Snoring Surgical History History of colonoscopy (05/25/19) History of hemilaminectomy (09/19/19) History of lumbar fusion (2013) History of surgery (2017) History of surgery Hx of bilateral cataract extraction (04/2019) Hx of eye surgery Hx of heart artery stent (2012) Hx of laminectomy (1996) Hx of repair of right rotator cuff (2002) Hx of sinus surgery Status post trigger finger release (2014) Social History marital status: household members: spouse Smoking Status: Former smoker alcohol intake: current substance use type: does not use Assessment & Plan Assessment & Plan narrative: 77-year-old male admitted with pneumonia and COPD exacerbation improved with IV ceftriaxone and azithromycin Assessment 1. community-acquired pneumonia improving plan: Continue with IV ceftriaxone and azithromycin. Will continue to wean off oxygen and anticipate discharge home tomorrow. Leukocytosis has resolved which is somewhat shocking that with the steroids and antibiotics that he is had a decrease from 22 Two 7. We will recheck in a.m.. Patient will need a follow-up chest x-ray in 1 month Assessment 2. COPD exacerbation. I think this was a lot of his problem. He would weaned off his prednisone and I think this was contributing. Plan: Will continue on the 60 mg IV Q 8 and likely discharge home tomorrow on 60 mg oral prednisone with follow-up taper . Will do echo to rule out cardiac etiology for hypoxemia. assessment 3. Acute on chronic kidney disease improved. Suspect multifactorial. Plan: Will rechecked tomorrow. Assessment 4. Hypertension plan: Will continue with same medications. assessment 5. Depression stable plan: Continue with same medications. Time spent with patient was 50 minutes in reviewing chart meeting with patient discussing with nursing formulating a plan and documentation Quality VTE Deep Vein Thrombosis/Pulmonary Embolism Present on Admission: No
[2022-09-11 13:08] LABS: Creatine Kinase 217 U/L (55-170)
--- NOTE | 2022-09-11 13:09 | DI.ECHO.S_ITS ---
[facility]---------+ [facility] +---------+ : : [address] [place] : : : : [id number] : : : : Phone: [phone]---------+ Echocardiogram Report + + :Name: YEHUDA ARANGO Study Date: 09/12/2022 Height: 70 in : :[facility] ReadingLocation: Weight: 240 lb : : Gender: Male BSA: 2.3 m2 : :: 1945 Age: 77 yrs BP: 145/62 mmHg: :Reason For Study: Hypoxemia : :Ordering Physician: Trish, : :Kassandra Performed By: [place] : :Referring: KASSANDRA YANCEY : + + Interpretation Summary This is a technically difficult study enhanced with Definity echocontrast. Normal sinus rhythm. Normal LV size and mild concentric LVH. Normal wall motion and LV systolic function. Ejection fraction is 55-60%. Stage II diastolic dysfunction. Mild left atrial enlargement; otherwise normal chamber sizes. Aortic sclerosis without stenosis. No significant valvular abnormalities otherwise. Estimated PA systolic pressure is 25 mm Hg assuming RA pressure of 3 mm Hg Compared to prior study obtained November 19, 2019, bradycardia is no longer present. Mild RV dilation is no longer present. Left atrial volume is down from 41 mL/mA? to 39 mL/mA?. Procedure: A two-dimensional transthoracic echocardiogram with color flow and Doppler was performed. The study quality was technically difficult. Comparison is made with the echocardiogram of 11/19/2019. A contrast injection of Definity was performed to improve assessment of LV function. The patient was in normal sinus rhythm during the exam. The patient had frequent PVCs during the exam. Left Ventricle: The left ventricle is normal in size. The ejection fraction is estimated to be 55-60%. Diastolic parameters suggest a pseudonormalization pattern, consistent with probable elevated filling pressures. Right Ventricle: The right ventricle is mildly dilated. The right ventricular systolic function is normal. Atria: The left atrium is mildly dilated. Right atrial size is normal. There is no Doppler evidence for an interatrial shunt. Mitral Valve: The mitral valve is normal. There is no mitral valve stenosis. There is trace mitral regurgitation. Aortic Valve: The aortic valve is trileaflet. There is mild aortic valve sclerosis. There is no aortic valve stenosis. No aortic regurgitation is present. Tricuspid Valve: The tricuspid valve is normal. There is no tricuspid stenosis. There is trace tricuspid regurgitation. Pulmonic Valve: The pulmonic valve leaflets are thin and pliable; valve motion is normal. There is no pulmonic valvular stenosis. There is no pulmonic valvular regurgitation. Great Vessels: The aortic root is normal size. The ascending aorta is normal in size. The pulmonary artery is normal size. The IVC is of normal diameter and collapses greater than 50% with a sniff. This suggests a low right atrial pressure of 3 mm Hg. Pericardium/ Pleura There is no pericardial effusion. There is no pleural effusion. MMode/2D Measurements & Calculations LVIDd: 5.3 cm LVOT diam: 1.9 cm LVIDs: 3.6 cm Ao root diam: 3.1 cm FS: 32.1 % asc Aorta Diam: 3.1 cm EPSS: 0.50 cm IVSd: 1.3 cm LVPWd: 1.5 cm LV villalobos. diameter/BSA (cm/m^2): 2.3 LV sys. diameter/BSA (cm/m^2): 1.6 LA A2 area: 26.0 cm2 RA long axis: 5.4 cm LA A4 area: 24.1 cm2 RA area: 14.5 cm2 LA length (vol): 6.0 cm RA vol: 33.0 ml LA vol: 88.5 ml RA : 14.6 ml/m2 LA vol index: 39.2 ml/m2 RVD1 (basal): 4.4 cm LVLs ap4: 7.0 cm LVLd ap2: 7.8 cm TAPSE_phl: 3.0 cm LVLs ap2: 6.0 cm Doppler Measurements & Calculations Ao V2 max: 155.0 cm/sec LVOT Max Jose: 158.5 cm/sec Ao V2 mean: 113.5 cm/sec LV V1 max P.0 mmHg Ao max P.0 mmHg LV V1 VTI: 37.4 cm Ao mean P.5 mmHg SANTI(I,D): 2.7 cm2 Ao V2 VTI: 39.2 cm SANTI(V,D): 2.9 cm2 sev ratio: 0.95 SANTI indexed to BSA (cm^2/m^2): 1.2 MV E max jose: 118.0 cm/sec TR max jose: 237.0 cm/sec MV A max jose: 116.0 cm/sec TR max P.5 mmHg MV E/A: 1.0 PA V2 max: 134.0 cm/sec Med Peak E' Jose: 7.3 cm/sec PA V2 mean: 91.2 cm/sec E/E' med: 16.3 PA mean P.0 mmHg Lat Peak E' Jose: 6.9 cm/sec PA pr(Accel): 34.9 mmHg E/E' lat: 17.2 E/e' average: 16.7 MV dec time: 0.24 sec SV(LVOT): 106.0 ml AV VR_phl: 1.1 SANTI(VTI)/BSA_phl: 1.3 MV P1/2t-pr_phl: 69.0 msec Electronically signed by: Shyla Singh M.D. on Reading Physician:09/12/2022 04:05 PM
[2022-09-11 13:21] LABS: Troponin I 0.019 ng/mL (0.01-0.034)
[2022-09-11] MEDS: cefTRIAXone 2,000 MG in SODIUM CHLORIDE 0.9% 100 ML 200 MG IV (15:26)
[2022-09-11] MEDS: AZITHROMYCIN 500 MG in DEXTROSE 5% IN WATER 250 ML 250 MG IV (16:04)
[2022-09-11] MEDS: PRAZOSIN 1 MG CAPSULE PO (20:48)
[2022-09-11] MEDS: TAMSULOSIN 0.4 MG CAPSULE PO (20:48)
[2022-09-11] MEDS: PANTOPRAZOLE DR 40 MG TABLET PO (20:48)
[2022-09-12 02:03] VITALS: BP 144/65; PULSE 85; RESP 18; TEMP 36.1; O2SAT 95
[2022-09-12 04:50] VITALS: BP 132/53; PULSE 65; RESP 18; TEMP 35.6; O2SAT 93
[2022-09-12] MEDS: LEVOTHYROXINE 100 MCG TABLET 200 MCG PO (06:18)
[2022-09-12 07:00] VITALS: O2SAT 94
[2022-09-12] MEDS: FLUTICASONE 120 SPRAY/16 GM SPRAY.SUSP NASAL (08:12)
[2022-09-12] MEDS: AMLODIPINE 5 MG TABLET PO (08:14)
[2022-09-12] MEDS: ISOSORBIDE MONONITRATE ER 30 MG TABLET 60 MG PO (08:14)
[2022-09-12] MEDS: ASPIRIN EC 81 MG TABLET PO (08:14)
[2022-09-12] MEDS: LORATADINE 10 MG TABLET PO (08:14)
[2022-09-12] MEDS: FUROSEMIDE 40 MG TABLET 80 MG PO (08:14)
[2022-09-12 08:15] VITALS: BP 145/62; PULSE 78
[2022-09-12] MEDS: LOSARTAN 50 MG TABLET PO (08:15)
[2022-09-12] MEDS: buPROPion XL 150 MG TAB PO (08:19)
[2022-09-12] MEDS: ATORVASTATIN 20 MG TABLET 80 MG PO (08:19)
[2022-09-12 09:09] VITALS: BP 145/62; PULSE 81; RESP 20; TEMP 36.6; O2SAT 94
--- NOTE | 2022-09-12 10:52 | P.DS_ITS ---
History of Present Illness History of Present Illness Chief complaint: SOB, cough, fever, lower chest pain Narrative: This is a very pleasant 69-year-old male who is followed by Dr. Dumont for his medical care in has multiple medical problems including chronic lung disease with previous aspergillosis and previous history of smoking and resultant COPD. Patient had grandchildren come from out of town and then he became ill on TuesdaySeptember 06. I believe he saw Dr. Dumont that day. [place] [id number]. A chest x-ray was done yesterday as he was progressively worsening and it showed a infiltrate in his right upper lobe. He had had 3 doses of Levaquin 500 mg starting on Tuesday and was continued to feel poorly with a fever of 103 and difficulty breathing. He presents to the ER for evaluation today. He has oxygen at home that he uses when he goes to high [place] and he started using this earlier today. He felt he needed it because his breathing was getting worse. In the emergency department he was found to have hypoxemia requiring 2 L nasal cannula oxygen. His white blood cell count had come down to 20,000. Patient was quite dehydrated with exacerbation of chronic kidney disease and 2 L of IV fluids were given. Patient was given 2 g of IV ceftriaxone and 500 mg of azithromycin admitted to the hospital for further treatment and evaluation. Patient has a fairly extensive past medical history but states he has been in his usual health. He has been weaning down on prednisone he was on I believe 60 mg for gout and they have weaned him down and he decreased to 5 mg from 10 mg I believe about a week ago. Past medical history: 1. Pulmonary aspergillosis was treated about 5 years ago for a year 2. COPD 3. Recurrent community-acquired pneumonia 4. Anemia, iron deficiency 5. Attention deficit disorder 6. Chronic kidney disease stage 3 B 7. Coronary artery disease 8. Peripheral vascular disease with carotid involvement 9. Hypothyroidism 10. Hypertension 11. Hyperlipidemia 12. Depression and anxiety 13. Previous history of hepatitis-B and hepatitis-C status post treatment 14. GERD 15. BPH 16. Degenerative joint disease with surgery in his left hip and fusion in his lumbar spine by Dr. Go with post surgical neuropathy involving the right leg Allergies no known drug allergies Medications see list Health related behavior: Patient previously smoked but has not smoked in many years Patient does use alcohol on a regular basis Patient has a distant history in the past of heroin use Past surgical history Coronary stent 02/08/2013 L4-L5 fusion laminectomy July of 2020 Trigger finger release 04/05/2014 Family history: Dad had heart disease, stroke, diabetes, hypertension, hyperlipidemia Mom had depression and alcoholism Patient with 4 younger brothers with prostate cancer, alcohol abuse, asthma. 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 Patient was started on IV Solu-Medrol and IV ceftriaxone and azithromycin. He was continued on his other outpatient medications. He had a significant leukocytosis but this improved. He would chest x-ray documenting pneumonia. He continued to improve and was discharged home on hospital day 3. In improved condition on room air on Augmentin and azithromycin and prednisone 60 mg as well as his outpatient medications. He had echo that was pending at the time of discharge. Status at Discharge Cognitive/behavioral status at discharge: oriented and at baseline, oriented Functional status at discharge: independent ambulation Overall status at discharge: patient is progressing back to baseline Exam Vital Signs (past 8 hours): - 09/12/22 04:50 09/12/22 08:15 09/12/22 09:09 Temperature 96.1 F L 97.8 F Pulse Rate 65 78 81 Respiratory Rate 18 20 Blood Pressure 132/53 L 145/62 H 145/62 H Pulse Oximetry 93 94 Oxygen Flow Rate 0 0 Oxygen Delivery Method Room Air Oxygen Flow Rate 0 Narrative Exam Narrative: Afebrile, vital signs are stable HEENT unremarkable Neck: Supple without adenopathy Chest: Clear to auscultation without wheezes rhonchi or crackles Cor: Regular rate and rhythm without a murmur, distant S1-S2 Abdomen: Positive bowel sounds, soft Extremities trace edema Neurologic exam nonfocal Objective Labs 09/11/22 07:00 09/11/22 07:00 Labs: Laboratory Results - last 24 hr 09/11/22 12:31 Total Creatine Kinase 217 H CK-MB (CK-2) TNP CK-MB (CK-2) Rel Index TNP Troponin I 0.019 PFSH Medical History Actinic keratosis ADD (attention deficit disorder) Anemia Anxiety BCC (basal cell carcinoma), face (~1979) Blood glucose elevated BPH with urinary obstruction CAD (coronary artery disease) Carotid artery disease without cerebral infarction Chronic sinusitis COPD (chronic obstructive pulmonary disease) Depression Diastolic dysfunction Excessive daytime sleepiness Fungal pneumonia (2017) GERD (gastroesophageal reflux disease) Hepatitis B Hepatitis C (~2013) History of heroin abuse HLD (hyperlipidemia) HTN (hypertension) Hypothyroidism Memory changes Obstructive sleep apnea of adult Osteoarthritis Primary insomnia PVC's (premature ventricular contractions) RBBB (right bundle branch block) Sinus bradycardia Snoring Surgical History History of colonoscopy (05/25/19) History of hemilaminectomy (09/19/19) History of lumbar fusion (2013) History of surgery (2017) History of surgery Hx of bilateral cataract extraction (04/2019) Hx of eye surgery Hx of heart artery stent (2012) Hx of laminectomy (1996) Hx of repair of right rotator cuff (2002) Hx of sinus surgery Status post trigger finger release (2014) Social History marital status: household members: spouse Smoking Status: Former smoker alcohol intake: current substance use type: does not use Discharge Assessment & Plan Assessment and Plan Assessment: Community-acquired pneumonia COPD exacerbation Acute on chronic kidney disease Hypertension Leukocytosis Plan of Treatment: Will discharge home on azithromycin 500 mg x 3 more days. He will be on Augmentin 875 b.i.d. for 7 days. He will stop his Levaquin at home. Prescriptions were sent to [facility]. He will be on prednisone 60 mg daily and he has this at home so it was not sent to pharmacy. He is a follow-up appoint with Dr. Dumont tomorrow he will keep this. He has an echo pending He needs a chest x-ray in 1 month He should continue all his same outpatient medications. Routine discharge instructions given Discharge Plan Discharge Plan Patient Disposition: Home Discharge orders & Medications Prescriptions: New amoxicillin-pot clavulanate 875-125 mg Tablet 1 tab PO BID Qty: 14 0RF azithromycin 500 mg tablet 500 mg PO DAILY 3 Days Qty: 3 0RF Continued aspirin 81 mg Tablet 81 mg PO DAILY amlodipine [Norvasc] 5 mg Tablet 5 mg PO BID tamsulosin 0.4 mg Capsule 0.4 mg PO BEDTIME rosuvastatin [Crestor] 40 mg Tablet 40 mg PO DAILY bupropion HCl [Wellbutrin XL] 150 mg Tablet Extended Release 24 Hr 150 mg PO QAM Flonase Sensimist 27.5 mcg/actuation [place],Suspension 1 spray INTRANASAL BID levothyroxine 150 mcg Capsule 200 mcg PO DAILY furosemide 40 mg Tablet 80 mg PO QAM irbesartan 300 mg Tablet 300 mg PO DAILY prazosin 1 mg Capsule 1 mg PO BEDTIME fexofenadine 180 mg Tablet 180 mg PO DAILY isosorbide mononitrate 60 mg Tablet Extended Release 24 Hr 60 mg PO BID hydrochlorothiazide 25 mg Tablet 25 mg PO QMWF (DME) Resmed Airsense 10 CPAP Qty: 1 Dose Instruction: As directed Patient Comments: Pressure: 8-16 cmH2O DME: [facility] Rx Instructions: As directed Discontinued cephalexin 500 mg capsule 500 mg PO QID Qty: 20 0RF Follow up/Referrals: Thiago Dumont MD [Primary Care Provider] - Discharge Health Status Multidrug resistant organism: No MDRO Diet/Activity/Treatments Diet: Diet as Tolerated Visit Report/Discharge Packet Stand Alone Forms: Patient Portal/API, Stroke Signs & Symptoms Discharge Data Primary Care Provider: Thiago Dumont Quality VTE Deep Vein Thrombosis/Pulmonary Embolism Present on Admission: No
[2022-09-12 12:02] LABS: Add Manual Diff / Slide Review NO; Basophils Absolute Auto 0 /uL (0-100); Basophils Percent Auto 0.3 % (0-2); Eosinophils Absolute Auto 0 /uL (0-450); Eosinophils Percent Auto 0.1 % (2-4); Hematocrit 31.9 % (41-53); Hemoglobin 10.7 g/dL (13.5-17.5); Lymphocytes Absolute Auto 200 /uL (1100-4500); Lymphocytes Percent Auto 2.3 % (25-40); Mean Corpuscular HGB Conc 33.4 % (30-36); Mean Corpuscular Volume 86.8 fL (80-100); Monocytes Absolute Auto 400 /uL (0-900); Monocytes Percent Auto 4.1 % (3-14); Neutrophils Absolute Auto 8900 /uL (1500-7000); Neutrophils Percent Auto 93.2 % (50-75); Platelet Count 170 X10^3/uL (150-400); Red Blood Cell Count 3.68 X10^6/uL (4.5-5.9); Red Cell Distribution Width 19.2 % (11.6-14.8); White Blood Cell Count 9.5 X10^3/uL (4.5-11.0)
[2022-09-12] MEDS: AMOXICILLIN/CLAV 875/125 MG 1 TAB PO (12:05)
[2022-09-12] MEDS: AZITHROMYCIN 250 MG TABLET 500 MG PO (12:06)
[2022-09-12 12:14] LABS: BUN Creatinine Ratio 35.5 (6-22); Blood Urea Nitrogen 77 mg/dL (9-20); Calcium 9.2 mg/dL (8.4-10.2); Carbon Dioxide 29 mmol/L (22-32); Chloride 98 mmol/L (98-107); Estimated Glomerular Filt Rate 30 mL/min (>60); Glucose 177 mg/dL (80-110); HEMOLYSIS < 15 (0-50); Potassium 3.2 mmol/L (3.4-5.1); Sodium 138 mmol/L (137-145)
[2022-09-12 12:43] VITALS: BP 110/59; PULSE 74; RESP 20; TEMP 35.7; O2SAT 95
== END 2022-09-12 13:55 | disposition home or self-care (01) | DRG 193 ==
LOC: ED 15:31 → AC 16:41
PROVIDERS: Admitting Provider Family Medicine; Emergency Provider Emergency Medicine; PCP Family Medicine; Referring Provider Emergency Medicine; Visit Provider Family Medicine
DX: J18.9 Pneumonia, unspecified organism (principal); J96.91 Respiratory failure, unspecified with hypoxia; J44.1 Chronic obstructive pulmonary disease with (acute) exacerbation; N17.9 Acute kidney failure, unspecified; I25.10 Atherosclerotic heart disease of native coronary artery without angina pectoris; E03.9 Hypothyroidism, unspecified; E78.5 Hyperlipidemia, unspecified; G47.33 Obstructive sleep apnea (adult) (pediatric); K21.9 Gastro-esophageal reflux disease without esophagitis; F32.A Depression, unspecified; I12.9 Hypertensive chronic kidney disease with stage 1 through stage 4 chronic kidney disease, or unspecified chronic kidney disease; N18.9 Chronic kidney disease, unspecified; N40.0 Benign prostatic hyperplasia without lower urinary tract symptoms; Z20.822 Contact with and (suspected) exposure to COVID-19; Z87.891 Personal history of nicotine dependence; R50.9 Fever, unspecified; R05.9 Cough, unspecified
CPT/HCPCS: 0241U; 36415; 71045; 71046; 80048; 80053; 81003; 82550; 83605; 83880; 84145; 84484; 85025; 85610; 87040; 87070; 87205; 93005; 93306; 94760; 96365; 96367; 96375; 99284; 99285; J0696; J1650; J2920; J2930; Q9957

== ENCOUNTER → 2022-10-26 07:46 | Outpatient (CLI) | payer OTHER, SELFPAY ==
--- NOTE | 2022-10-26 22:40 | DI.NM.S_ITS ---
DATE OF SERVICE: 10/26/2022 PROCEDURE: Pharmacological perfusion study. INDICATIONS: Chest pain with underlying hypertension, right bundle branch block. RADIOPHARMACEUTICAL: 26.2 millicurie technetium-99m Myoview IV was injected at stress and 12.6 millicurie technetium-99m Myoview IV was injected at rest. CARDIAC STRESS: The patient underwent IV Lexiscan perfusion study under the supervision of an attending staff as per standard protocol. The patient remained hemodynamically stable. Baseline blood pressure 135/60. Baseline rhythm sinus with right bundle branch block. During stress, no convincing ischemic changes or new significant arrhythmias seen. No chest pain or shortness of breath. RAW DATA: There is increased subdiaphragmatic activity. The patient's weight is 230 pounds. GATED STUDY: Resting LV ejection fraction 75% and stress LV ejection fraction 80% without any obvious wall motion abnormalities. Resting end- diastolic volume 148 mL. TID ratio 0.88, which is within normal limits. Lung/heart ratio 0.27, which is within normal limits. MYOCARDIAL PERFUSION SCAN: Stress supine and resting supine images were compared to each other. Stress supine images revealed moderate size, mild to moderately decreased perfusion of inferior wall. Resting supine images revealed moderate size, mild to moderately decreased perfusion of inferior wall as well as small size distal anterior wall defect. During the stress prone images, there was significant resolution of inferior wall as well as distal anterior wall. No significant ischemia or infarction pattern seen during stress prone images. CONCLUSION: I will call this study a normal myocardial perfusion study with evidence of diaphragmatic tissue attenuation artifact, which got resolved during stress prone images. Preserved left ventricular function. No obvious wall motion abnormalities. Baseline right bundle branch block. Overall, low-risk myocardial perfusion scan. The patient had a perfusion study in May 2020, at that time also the patient had normal myocardial perfusion. Jose Leigh - TERRENCE/janeen/olivia doc#: [id number]/job#: [id number] dd: 10/26/2022 17:44:00 dt: 10/26/2022 22:23:00 DICTATING MD/COPIES TO: Abigail Frye MD COPIES MNE: DARRYL;
== END ==
PROVIDERS: PCP Family Medicine; Referring Provider Family Medicine; Visit Provider Family Medicine
DX: R07.2 Precordial pain (principal); I10 Essential (primary) hypertension; I45.10 Unspecified right bundle-branch block
CPT/HCPCS: 78452; 93017; A9502; J2785

== ENCOUNTER 2022-12-01 16:57 | Emergency (ER) | payer OTHER, SELFPAY ==
[2022-12-01 17:21] VITALS: PULSE 80; RESP 14; TEMP 36.6; O2SAT 98; BMI 33.0
--- NOTE | 2022-12-01 17:26 | DI.RAD.S_ITS ---
PROCEDURE: XR FINGER RT MIN 2V INDICATIONS: Cut tip of R 3rd finger with bandsaw TECHNIQUE: AP hand, 2 views of the 3rd finger(s) acquired. COMPARISON: None. FINDINGS: Bones: No fractures or dislocations. No suspicious bony lesions. Soft tissues: No suspicious soft tissue calcifications. 3rd digit soft tissue laceration is present. IMPRESSION: No visualized acute fracture or dislocation. However, if clinical concern and/or pain persist, short interval imaging followup in 7-10 days is recommended, as occult injury cannot be definitively excluded. Dictated by: Alia Monterroso M.D. on 12/01/2022 at 19:04 Approved by: Alia Monterroso M.D. on 12/01/2022 at 19:04
--- NOTE | 2022-12-01 18:39 | ED_ITS ---
HPI - Wound/Laceration General Chief Complaint: Wound/Laceration Stated Complaint: rt middle finger cut with bandsaw Time Seen by Provider: 12/01/22 18:36 Source: patient Mode of arrival: Ambulatory History of Present Illness HPI narrative: 69-year-old male former smoker with up-to-date tetanus presents with family in the chief complaint of an accidental injury to the tip of his right middle finger. He was working with a band saw and it slipped and he cut his finger through the nail. He has pain and minimal bleeding but denies any numbness, tingling or weakness. He is otherwise well and free of complaint Related Data Home Medications Medication Instructions Recorded Confirmed Resmed Airsense 10 CPAP #1 ea 06/21/18 09/10/22 amlodipine 5 mg tablet (Norvasc) 5 mg PO BID 05/03/19 09/10/22 bupropion HCl 150 mg 24 hr tablet, 150 mg PO QAM 05/03/19 09/10/22 extended release (Wellbutrin XL) fluticasone furoate 27.5 1 spray intranasal BID 05/03/19 09/10/22 mcg/actuation nasal spray,suspension (Flonase Sensimist) levothyroxine 150 mcg capsule 200 mcg PO DAILY 05/03/19 09/10/22 rosuvastatin 40 mg tablet (Crestor) 40 mg PO DAILY 05/03/19 09/10/22 tamsulosin 0.4 mg capsule 0.4 mg PO BEDTIME 05/03/19 09/10/22 fexofenadine 180 mg tablet 180 mg PO DAILY 07/01/21 09/10/22 furosemide 40 mg tablet 80 mg PO QAM 07/01/21 09/10/22 hydrochlorothiazide 25 mg tablet 25 mg PO QMWF 07/01/21 09/10/22 irbesartan 300 mg tablet 300 mg PO DAILY 07/01/21 09/10/22 isosorbide mononitrate 60 mg 60 mg PO BID 07/01/21 09/10/22 tablet,extended release 24 hr prazosin 1 mg capsule 1 mg PO BEDTIME 07/01/21 09/10/22 aspirin 81 mg tablet 81 mg PO DAILY 09/16/21 09/10/22 Previous Rx's Medication Instructions Recorded amoxicillin 875 mg-potassium 1 tab PO BID #14 tabs 09/12/22 clavulanate 125 mg tablet cephalexin 500 mg capsule 500 mg PO Q6H 7 days #28 caps 12/01/22 Allergies Allergy/AdvReac Type Severity Reaction Status Date / Time No Known Drug Allergies Allergy Verified 12/01/22 17:25 Review of Systems Review of Systems Narrative: GENERAL: Denies chills, fatigue, malaise, fever, sweats. HEENT: Denies sinus pain, ear pain, sore throat, difficulty swallowing, dizziness. RESPIRATORY: Denies dyspnea, cough, wheezing, hemoptysis, sputum. CARDIOVASCULAR: Denies chest pain, palpitations, orthopnea, edema, GASTROINTESTINAL: Denies nausea, vomiting, abdominal pain, diarrhea, constipation, melena. : Denies dysuria, frequency, incontinence, hematuria, urinary retention. MUSCULOSKELETAL: See HPI SKIN: Denies rash, skin lesions, or other NEUROLOGIC: Denies weakness, headache, numbness, change in speech, confusion, seizures, incoordination. PSYCHIATRIC: No concerning psychosocial issues. 12 point review of systems is negative except for those stated above Patient History Medical History Actinic keratosis ADD (attention deficit disorder) Anemia Anxiety BCC (basal cell carcinoma), face (~1979) Blood glucose elevated BPH with urinary obstruction CAD (coronary artery disease) Carotid artery disease without cerebral infarction Chronic sinusitis COPD (chronic obstructive pulmonary disease) Depression Diastolic dysfunction Excessive daytime sleepiness Fungal pneumonia (2017) GERD (gastroesophageal reflux disease) Hepatitis B Hepatitis C (~2013) History of heroin abuse HLD (hyperlipidemia) HTN (hypertension) Hypothyroidism Memory changes Obstructive sleep apnea of adult Osteoarthritis Primary insomnia PVC's (premature ventricular contractions) RBBB (right bundle branch block) Sinus bradycardia Snoring Surgical History History of colonoscopy (05/25/19) History of hemilaminectomy (09/19/19) History of lumbar fusion (2013) History of surgery (2017) History of surgery Hx of bilateral cataract extraction (04/2019) Hx of eye surgery Hx of heart artery stent (2012) Hx of laminectomy (1996) Hx of repair of right rotator cuff (2002) Hx of sinus surgery Status post trigger finger release (2014) Social History marital status: household members: spouse Smoking Status: Former smoker alcohol intake: current substance use type: does not use Smoking Status: Former smoker alcohol intake frequency: 0-2 drinks per day Substance Use Type: former substance user and marijuana Exam Narrative Exam Narrative: GEN: AOx3 and in mild distress EYES: Pupils are equal, round, and reactive to light and accommodation. Extraoccular muscles are intact bilaterally. There is no subconjunctival hemorrhage or exudate. CHEST: Lungs are clear to auscultation bilaterally and free of wheezes, rales, or rhonchi. Heart rate is regular rhythm, there are no murmurs, clicks, rubs, or gallops. There is no chest wall tenderness. ABD: Abdomen is soft and nontender. There is no guarding or rebound. Bowel sounds are normal in all 4 quadrants. There is no mass or organomegaly. EXT: Right middle finger with full range of motion, laceration through the middle of the nail, no foreign body, minimal bleeding if any, no obvious bony involvement. Full painless ROM of all extremities with no loss of sensation or strength. SKIN: Warm, pink, and dry. No erythema or rash Initial Vital Signs Initial Vital Signs: Vital Signs Temperature 97.9 F 12/01/22 17:21 Pulse Rate 80 12/01/22 17:21 Respiratory Rate 14 12/01/22 17:21 Pulse Oximetry 98 12/01/22 17:21 Oxygen Delivery Method Room Air 12/01/22 17:21 Procedures Laceration Repair Laceration 1: Site: hand Side (If applicable): right Size (cm): 0.5 Description: linear Depth: simple, single layer Pre-repair: wound explored, irrigated extensively and cleansed with chlorhexadine Skin layer closed with: nylon Skin layer suture size: 4-0 Number of sutures: 2 Technique: simple, interrupted (To approximate nail only, no nail bed involved) Nerve Block Nerve Block 1: Time out performed: Yes Local Anesthetic: lidocaine 1% Amount of anesthesia used (mL): 4 Side: right Nerve Blocks: digital Procedure Successful: Yes Patient Tolerated Procedure: Well Complications: none Course Orders Ordered: Discontinued Medications Bacitracin (Bacitracin Oint 0.9 Gm Pckt) 1 applic TOP NOW ONE Stop: 12/01/22 19:56 Last Admin: 09/13/23 20:04 Dose: 1 applic Documented By: MARYAN Cefazolin Sodium (Cephalexin 250 Mg Cap Prepack) 1 bottle MISC SEEINSTR ONE Stop: 12/01/22 19:07 Last Admin: 12/01/22 19:13 Dose: 2 cap Documented By: MARYAN Vital Signs Vital signs: Vital Signs - 8 hr 12/01/22 17:21 Temperature 97.9 F Pulse Rate 80 Respiratory Rate 14 Pulse Oximetry 98 Oxygen Delivery Method Room Air MDM - Wound/Laceration MDM Narrative Medical decision making narrative: [77] year old patient presents with accidental injury to tip of right middle finger Multiple etiologies for patient's symptoms considered including, but not limited to: [Foreign body versus nail bed involvement versus bony involvement versus other] Prior Charts reviewed in our EMR Primary Historian: patient Imaging reviewed: No bony involvement History and physical exam are reassuring. No tissue loss, very minimal active bleeding, no bony involvement, the nail bed is involved but there is minimal to no active bleeding. Digital block performed, 2 sutures placed to reapproximate the nail any protective orientation, irrigated, cleansed with chlorhexidine, tetanus is current and antibiotics initiated Patient's symptoms improved over duration of stay with above-stated therapies. Findings and discharge diagnosis discussed with patient/family followed by verbalization of understanding Return precautions discussed with patient/family whom verbalize understanding of diagnosis and plan Discharge Plan Departure Patient Disposition: Home Clinical Impression: Laceration of finger nail bed Instructions: DI for Laceration Repair Activity Restrictions/Additional Instructions: *You have been diagnosed with [Right finger laceration with nailbed involvement ] *What to do: *Please continue to take your regular medications as directed. [ x] New medication prescriptions sent to your pharmacy: [[facility] ] [ ] New medication written as a paper prescription [ ] No new medications given *Please follow up with your primary care provider in 2-3 days, call for an appointment. Let them know you were seen in the Emergency Department and that we ask that you be seen in follow up. We will electronically transmit a record of today's note if your PCP is in our system *If you do not have a primary care provider please contact the [facility] Resource line at [phone]. They will ask some questions about your medical history and help get you set up with a doctor in the community. *Return to Emergency Department if you should have any new, worsening or concerning symptoms, such as [fever greater than 101 F, shaking chills, worsening pain, persistent vomiting or other bothersome symptoms] Prescriptions: New cephalexin 500 mg capsule 500 mg PO Q6H 7 Days Qty: 28 0RF No Action aspirin 81 mg Tablet 81 mg PO DAILY amoxicillin-pot clavulanate 875-125 mg Tablet 1 tab PO BID Qty: 14 0RF amlodipine [Norvasc] 5 mg Tablet 5 mg PO BID tamsulosin 0.4 mg Capsule 0.4 mg PO BEDTIME rosuvastatin [Crestor] 40 mg Tablet 40 mg PO DAILY bupropion HCl [Wellbutrin XL] 150 mg Tablet Extended Release 24 Hr 150 mg PO QAM Flonase Sensimist 27.5 mcg/actuation [place],Suspension 1 spray INTRANASAL BID levothyroxine 150 mcg Capsule 200 mcg PO DAILY furosemide 40 mg Tablet 80 mg PO QAM irbesartan 300 mg Tablet 300 mg PO DAILY prazosin 1 mg Capsule 1 mg PO BEDTIME fexofenadine 180 mg Tablet 180 mg PO DAILY isosorbide mononitrate 60 mg Tablet Extended Release 24 Hr 60 mg PO BID hydrochlorothiazide 25 mg Tablet 25 mg PO QMWF (DME) Resmed Airsense 10 CPAP Qty: 1 Dose Instruction: As directed Patient Comments: Pressure: 8-16 cmH2O DME: [facility] Rx Instructions: As directed Referrals: Thiago Dumont MD [Primary Care Provider] - Stand Alone Forms: Patient Portal/API
[2022-12-01] MEDS: cephALEXin 250 MG CAP PREPACK 1 BOTTLE MISC (19:13)
[2022-12-01] MEDS: LIDOCAINE 2% INJ SDV 5ML 5 ML (19:20)
[2022-12-01 20:04] VITALS: BP 153/74; PULSE 62; RESP 18; TEMP 36.6; O2SAT 97
[2022-12-01] MEDS: BACITRACIN OINT 0.9 GM PCKT 1 APPLIC TOP (20:04)
== END 2022-12-01 20:07 | disposition home or self-care (01) ==
PROVIDERS: Emergency Provider Emergency Medicine; PCP Family Medicine
DX: S61.312A Laceration without foreign body of right middle finger with damage to nail, initial encounter (principal); W29.8XXA Contact with other powered hand tools and household machinery, initial encounter
CPT/HCPCS: 73140; 99283

== ENCOUNTER → 2023-03-24 14:54 | Outpatient (CLI) | payer OTHER, SELFPAY ==
--- NOTE | 2023-03-24 14:55 | DI.RAD.S_ITS ---
PROCEDURE: XR SHOULDER LT MIN 2V INDICATIONS: CHRONIC LEFT SHOULDER PAIN TECHNIQUE: 3 views of the shoulder were acquired. COMPARISON: None. FINDINGS: Bones: No fractures or dislocations. Moderate acromioclavicular joint and glenohumeral joint osteoarthritic changes are seen with joint space narrowing, subchondral sclerosis and marginal osteophyte formation. No suspicious bony lesions. Visualized ribs appear intact. Soft tissues: No suspicious soft tissue calcifications. IMPRESSION: No shoulder fracture or dislocation. Moderate left shoulder joint osteoarthritis. Dictated by: Arturo Go M.D. on 03/24/2023 at 17:19 Approved by: Arturo Go M.D. on 03/24/2023 at 17:20
== END ==
PROVIDERS: PCP Family Medicine; Referring Provider Family Medicine; Visit Provider Family Medicine
DX: M19.012 Primary osteoarthritis, left shoulder (principal); M25.512 Pain in left shoulder; G89.29 Other chronic pain
CPT/HCPCS: 73030

== ENCOUNTER → 2023-04-14 11:56 | Outpatient (CLI) | payer OTHER, SELFPAY ==
--- NOTE | 2023-04-14 11:59 | DI.RAD.S_ITS ---
PROCEDURE: XR CHEST 2V INDICATIONS: CHEST PAIN TECHNIQUE: 2 views of the chest were acquired. COMPARISON: [facility], CR, XR CHEST 1V, 09/10/2022, 14:50. FINDINGS: Surgical changes and devices: None. Lungs and pleura: Lingular and left lower lobe patchy consolidation. Previously seen middle lobe consolidation has resolved. No pleural effusions or pneumothorax. Mediastinum: Mediastinal contours are normal. Heart size is enlarged, stable. Bones and chest wall: No suspicious bony abnormalities. Soft tissues appear unremarkable. IMPRESSION: 1. Lingular and left lower lobe patchy consolidation suggestive of multifocal pneumonia and/or aspiration. Recommend radiographic follow up after clinical improvement to document resolution and exclude an underlying neoplasm. 2. Previously seen middle lobe consolidation has resolved. Dictated by: Tripp Rao M.D. on 04/14/2023 at 20:55 Approved by: Tripp Rao M.D. on 04/14/2023 at 20:57
== END ==
PROVIDERS: PCP Family Medicine; Referring Provider Family Medicine; Visit Provider Family Medicine
DX: R07.9 Chest pain, unspecified (principal); R06.00 Dyspnea, unspecified
CPT/HCPCS: 71046

== ENCOUNTER → 2023-04-25 16:50 | Outpatient (CLI) | payer OTHER, SELFPAY ==
--- NOTE | 2023-04-25 | DI.RAD.S_ITS ---
PROCEDURE: XR CHEST 2V INDICATIONS: Thiago Dumont TECHNIQUE: 2 views of the chest were acquired. COMPARISON: [facility], CR, XR CHEST 2V, 04/14/2023, 12:05. FINDINGS: Surgical changes and devices: None. Lungs and pleura: There is mild pulmonary vascular congestion. Bilateral perihilar and infrahilar infiltrates cannot be excluded. Overall appearance is not significantly changed from prior study. No pleural effusion or pneumothorax. Mediastinum: Mediastinal contours are normal. Heart size is normal. Bones and chest wall: No suspicious bony abnormalities. Soft tissues appear unremarkable. IMPRESSION: Pulmonary vascular congestion and suggestion of bilateral perihilar and infrahilar infiltrates not significantly changed from previous study. No pleural effusion or pneumothorax. Dictated by: Arturo Go M.D. on 04/26/2023 at 11:07 Approved by: Arturo Go M.D. on 04/26/2023 at 11:08
== END ==
PROVIDERS: PCP Family Medicine; Referring Provider Family Medicine; Visit Provider Family Medicine
DX: J84.10 Pulmonary fibrosis, unspecified (principal); J44.1 Chronic obstructive pulmonary disease with (acute) exacerbation; R05.1 Acute cough
CPT/HCPCS: 71046

== ENCOUNTER → 2023-05-30 13:05 | Outpatient (CLI) | payer OTHER, SELFPAY ==
--- NOTE | 2023-05-30 13:06 | DI.US.S_ITS ---
PROCEDURE: US RENAL COMPLETE INDICATIONS: Chronic kidney disease, stage 3b TECHNIQUE: Real-time scanning was performed of the kidneys and bladder, with image documentation. COMPARISON: None. FINDINGS: Kidneys: Kidneys are normal in size. Right kidney measures 11.4 cm long; left kidney measures 11.7 cm long. Right renal cortical thickness is 1.4 cm; left renal cortical thickness is 1.1 cm. Renal cortical echotexture is normal. No hydronephrosis or nephrolithiasis. No suspicious solid mass lesions. Bladder: Pre-void bladder volume is 208 mL. Post-void residual is 0 mL. Pre-void images demonstrate no intraluminal masses or stones. Ureteral jets are not seen. (Of note, ureteral jets may not be detectable in up to 25% of cases due to insufficient differences in specific gravity between ureteral and bladder urine). Miscellaneous: No free pelvic fluid. IMPRESSION: Normal appearance of the kidneys and urinary bladder. Dictated by: Abelino Wheatley M.D. on 05/30/2023 at 15:04 Approved by: Abelino Wheatley M.D. on 05/30/2023 at 15:07
== END ==
LOC: US 13:05
PROVIDERS: PCP Family Medicine; Referring Provider Internal Medicine; Visit Provider Internal Medicine
DX: N18.32 Chronic kidney disease, stage 3b (principal)
CPT/HCPCS: 76770

== ENCOUNTER 2023-06-10 15:10 | Emergency (ER) | payer OTHER, SELFPAY ==
[2023-06-10] VITALS (25 sets, daily range): BP systolic 150–242; BP diastolic 65–102; PULSE 53–66; RESP 10–34; TEMP 36.7; O2SAT 91–99; BMI 31.1
--- NOTE | 2023-06-10 15:57 | DI.CT.S_ITS ---
PROCEDURE: CT HEAD/BRAIN WO CON INDICATIONS: syncope, hit back of head TECHNIQUE: Noncontrast 4.5 mm thick angled axial sections acquired from the foramen magnum to the vertex, with coronal and sagittal reformats. For radiation dose reduction, the following was used: automated exposure control, adjustment of mA and/or kV according to patient size. COMPARISON: [facility], CT, CT HEAD/BRAIN WO CON, 09/30/2019, 16:56. [facility], CT, CT HEAD/BRAIN WO CON, 02/09/2018, 21:51. FINDINGS: Image quality: Diagnostic. CSF spaces: Basal cisterns are patent. No extra-axial fluid collections. The ventricles are symmetric in size and shape. Brain: No intracranial bleeds or masses. There is cerebral volume loss for age, with resultant ventricular and sulcal prominence. There are periventricular and deep white matter chronic small vessel ischemic changes. There is intracranial internal carotid artery atherosclerosis. Skull and face: Calvarium and visualized facial bones appear intact, without suspicious lesions. Sinuses: Visualized sinuses and mastoids are clear. IMPRESSION: No acute intracranial pathology. Dictated by: Bentley Castro M.D. on 06/10/2023 at 16:53 Approved by: Bentley Castro M.D. on 06/10/2023 at 16:53
--- NOTE | 2023-06-10 15:57 | DI.RAD.S_ITS ---
PROCEDURE: XR CHEST 1V INDICATIONS: chest pain TECHNIQUE: One view of the chest was acquired. COMPARISON: [facility], CR, XR CHEST 2V, 04/25/2023, 16:55. [facility], CR, XR CHEST 2V, 04/14/2023, 12:05. FINDINGS: Surgical changes and devices: None. Lungs and pleura: Lungs are clear except for a slight interstitial prominence, chronic. No pleural effusions or pneumothorax. Mediastinum: Mediastinal contours appear normal. Heart size is normal. Bones and chest wall: No suspicious bony lesions. Overlying soft tissues appear unremarkable. IMPRESSION: No acute cardiopulmonary abnormality is seen. Dictated by: Bentley Castro M.D. on 06/10/2023 at 17:05 Approved by: Bentley Castro M.D. on 06/10/2023 at 17:05
--- NOTE | 2023-06-10 16:05 | DI.CT.S_ITS ---
PROCEDURE: CT CERVICAL SPINE WO CON INDICATIONS: fall/ hit head TECHNIQUE: Noncontrast 3 mm thick sections acquired from the skull base to the T4 level. Sagittal and coronal reformats were then constructed. For radiation dose reduction, the following was used: automated exposure control, adjustment of mA and/or kV according to patient size. COMPARISON: None. FINDINGS: Image quality: Excellent. Bones: No fractures or dislocations. Visualized superior ribs are intact. Soft tissues: Prevertebral soft tissues are normal in thickness. No paravertebral hematomas. No apical pneumothoraces. IMPRESSION: No displaced fracture or traumatic subluxation. Dictated by: Bentley Castor M.D. on 06/10/2023 at 16:53 Approved by: Bentley Castro M.D. on 06/10/2023 at 16:54
[2023-06-10 16:24] LABS: Add Manual Diff / Slide Review NO; Basophils Absolute Auto 100 /uL (0-100); Basophils Percent Auto 0.8 % (0-2); Eosinophils Absolute Auto 0 /uL (0-450); Eosinophils Percent Auto 0.3 % (2-4); Hematocrit 41.1 % (41-53); Hemoglobin 13.9 g/dL (13.5-17.5); Lymphocytes Absolute Auto 1100 /uL (1100-4500); Lymphocytes Percent Auto 12.4 % (25-40); Mean Corpuscular HGB Conc 33.8 % (30-36); Mean Corpuscular Hemoglobin 31.1 PG (26-34); Monocytes Absolute Auto 600 /uL (0-900); Monocytes Percent Auto 7.1 % (3-14); Neutrophils Absolute Auto 7300 /uL (1500-7000); Neutrophils Percent Auto 79.4 % (50-75); Platelet Count 156 X10^3/uL (150-400); Red Blood Cell Count 4.47 X10^6/uL (4.5-5.9); Red Cell Distribution Width 14.6 % (11.6-14.8); White Blood Cell Count 9.1 X10^3/uL (4.5-11.0)
[2023-06-10 16:34] LABS: Prothrombin Time 10.9 SECONDS (9.4-12.5)
[2023-06-10 16:36] LABS: PTT Partial Thromboplastin Tim 28 SECONDS (25.1-36.5)
[2023-06-10 16:52] LABS: Alanine Aminotransferase 44 IU/L (<50); Albumin 4.2 g/dL (3.5-5.0); Albumin Globulin Ratio 1.4 (1.0-2.8); Alkaline Phosphatase 69 U/L (38-126); Aspartate Aminotransferase 51 IU/L (17-59); BUN Creatinine Ratio 27.9 (6-22); Blood Urea Nitrogen 61 mg/dL (9-20); Calcium 9.2 mg/dL (8.4-10.2); Carbon Dioxide 28 mmol/L (22-32); Chloride 102 mmol/L (98-107); Creatine Kinase 227 U/L (55-170); Estimated Glomerular Filt Rate 30 mL/min (>60); Globulin 2.9 g/dL (1.7-4.1); Glucose 113 mg/dL (80-110); HEMOLYSIS 24 (0-50); Lipase 142 U/L (23-300); Magnesium 2.3 mg/dL (1.6-2.3); Potassium 3.1 mmol/L (3.4-5.1); Sodium 138 mmol/L (137-145); Total Protein 7.1 g/dL (6.3-8.2)
[2023-06-10 17:03] LABS: Troponin I 0.022 ng/mL (0.01-0.034)
--- NOTE | 2023-06-10 18:08 | DI.RAD.S_ITS ---
PROCEDURE: XR WRIST LT MIN 3V INDICATIONS: pain from a fall TECHNIQUE: 4 views of the wrist were acquired. COMPARISON: [facility], JENNY, XR WRIST LT MIN 3V, 12/19/2018, 11:06. [facility], JENNY, WRIST MINIMUM 3 VIEWS RIGHT, 04/06/2016, 10:12. FINDINGS: Bones: No fractures or dislocations. No suspicious bony lesions. Soft tissues: No suspicious soft tissue calcifications. IMPRESSION: No fracture demonstrated. Dictated by: Pb Nunez M.D. on 06/10/2023 at 20:20 Approved by: Pb Nunez M.D. on 06/10/2023 at 20:21
--- NOTE | 2023-06-10 18:36 | ED.DIZZY ---
HPI - Dizziness General Chief Complaint: Dizziness Stated Complaint: dizzy/syncope Time Seen by Provider: 06/10/23 18:32 Source: patient Mode of arrival: Ambulatory History of Present Illness HPI Narrative: Patient is a 77-year-old male history of chronic kidney disease, animal cop, aspergillosis, carotid stenosis presenting today with dizziness. He reports that over the last couple of days every time he looks up or stands up he gets dizzy. He says yesterday he completely like zoned out for about 10 seconds. Today he went out to the backyard with some tremors he looked up the roof and then passed out. He is complaining of left wrist pain. He thinks maybe he hit his head. It was a brief loss of consciousness. He reports he does have carotid stent on 1 side the right side is completely occluded. He has had vertigo in the past he reports that this is completely different. He says when he is vertigo he can not find a comfortable position. He seems to be doing okay lying down. He denies any fever or chills. No palpitations or shortness of breath. He fell to his knees today he has some left knee abrasion. He says that his knees have chronic wounds on them. Related Data Home Medications Medication Instructions Recorded Confirmed [employer] Airsense 10 CPAP #1 ea 06/21/18 09/10/22 amlodipine 5 mg tablet (Norvasc) 5 mg PO QACBREAK 05/03/19 09/10/22 bupropion HCl 150 mg 24 hr tablet, 150 mg PO QAM 05/03/19 09/10/22 extended release (Wellbutrin XL) fluticasone furoate 27.5 1 spray intranasal BID 05/03/19 09/10/22 mcg/actuation nasal spray,suspension (Flonase Sensimist) levothyroxine 150 mcg capsule 200 mcg PO DAILY 05/03/19 09/10/22 rosuvastatin 40 mg tablet (Crestor) 40 mg PO DAILY 05/03/19 09/10/22 tamsulosin 0.4 mg capsule 0.4 mg PO BEDTIME 05/03/19 09/10/22 fexofenadine 180 mg tablet 180 mg PO DAILY 07/01/21 09/10/22 furosemide 40 mg tablet 80 mg PO QAM 07/01/21 09/10/22 hydrochlorothiazide 25 mg tablet 25 mg PO QMWF 07/01/21 09/10/22 irbesartan 300 mg tablet 300 mg PO DAILY 07/01/21 09/10/22 isosorbide mononitrate 60 mg 60 mg PO BID 07/01/21 09/10/22 tablet,extended release 24 hr prazosin 1 mg capsule 1 mg PO BEDTIME 07/01/21 09/10/22 aspirin 81 mg tablet 81 mg PO DAILY 09/16/21 09/10/22 irbesartan 300 mg tablet 300 mg PO DAILY blood pressure 06/10/23 06/10/23 Previous Rx's Medication Instructions Recorded amoxicillin 875 mg-potassium 1 tab PO BID #14 tabs 09/12/22 clavulanate 125 mg tablet hydrocodone 5 mg-acetaminophen 325 1 tab PO Q6H PRN pain #10 tabs 06/10/23 mg tablet Allergies Allergy/AdvReac Type Severity Reaction Status Date / Time No Known Drug Allergies Allergy Verified 06/10/23 15:38 Patient History Medical History History of heroin abuse BCC (basal cell carcinoma), face (~1979) RBBB (right bundle branch block) Diastolic dysfunction Sinus bradycardia PVC's (premature ventricular contractions) Osteoarthritis Actinic keratosis COPD (chronic obstructive pulmonary disease) Hepatitis C (~2013) Hepatitis B Blood glucose elevated Chronic sinusitis GERD (gastroesophageal reflux disease) Memory changes ADD (attention deficit disorder) HLD (hyperlipidemia) Anxiety Depression Hypothyroidism CAD (coronary artery disease) HTN (hypertension) Carotid artery disease without cerebral infarction BPH with urinary obstruction Fungal pneumonia (2017) Anemia Excessive daytime sleepiness Obstructive sleep apnea of adult Primary insomnia Snoring Surgical History Hx of sinus surgery Hx of laminectomy (1996) Hx of eye surgery Hx of repair of right rotator cuff (2002) History of surgery History of surgery (2017) History of hemilaminectomy (09/19/19) Hx of bilateral cataract extraction (04/2019) History of colonoscopy (05/25/19) Status post trigger finger release (2014) History of lumbar fusion (2013) Hx of heart artery stent (2012) Social History marital status: household members: spouse Smoking Status: Former smoker alcohol intake: current substance use type: does not use Smoking Status: Former smoker alcohol intake frequency: a few times a week Substance Use Type: former substance user and marijuana Exam Initial Vital Signs Initial Vital Signs: Vital Signs Temperature 98.1 F 06/10/23 15:38 Pulse Rate 63 06/10/23 15:38 Respiratory Rate 20 06/10/23 15:38 Blood Pressure 172/74 H 06/10/23 15:38 Pulse Oximetry 99 06/10/23 15:38 Oxygen Delivery Method Room Air 06/10/23 15:38 GENERAL: Alert 69-year-old male and in no acute distress. HEENT: Head atraumatic,EOMI, pupils reactive, face symmetric, moist mucous membranes CARDIOVASCULAR: Regular rate and rhythm without murmurs, rubs or gallops. RESPIRATORY: Breath sounds equal bilaterally, no wheezes rales or rhonchi. ABDOMEN: Soft, nontender. Normoactive bowel sounds all 4 quadrants. No guarding or rebound. EXTREMITIES: Normal range of motion, no clubbing or edema. Neurovascularly intact Left wrist no obvious deformity distal radial pulse intact able to flex and extend but he does have some pain and discomfort NEUROLOGICAL: Alert and oriented x4.Normal gait and speech. Cranial nerves II through XII grossly intact. Good jermai-da-occj, good nacm-tc-mzgf, strength equal bilaterally, no dysarthria or aphasia, sensation in tact to soft touch bilaterally, no visual changes, no facial droop SKIN: Warm, dry, no laceration, no petechiae, no rashes or lesions. Course Orders Ordered: ED Orders 06/10/23 18:52 CT angio head and neck Stat Discontinued Medications Acetaminophen (Acetaminophen 325 Mg Tablet) 650 mg PO NOW ONE Stop: 06/10/23 18:53 Last Admin: 06/10/23 19:20 Dose: 650 mg Documented By: NENA Hydrocodone Bitart/Acetaminophen (Hydrocodone/Acet 5/325 Prepack) 1 bottle MISC PROTOCOL ONE Stop: 06/10/23 21:06 Last Admin: 06/10/23 21:14 Dose: 1 bottle Documented By: NENA Hydrocodone Bitart/Acetaminophen (Hydrocodone/Acet 5/325 Tablet) 1 tab PO NOW ONE Stop: 06/10/23 21:11 Last Admin: 06/10/23 21:14 Dose: 1 tab Documented By: NENA Aspirin (Aspirin 81 Mg Chew Tab) 324 mg PO NOW ONE Stop: 06/10/23 15:58 Last Admin: 06/10/23 16:05 Dose: Not Given Documented By: JOÃO Sodium Chloride (Normal Saline 0.9%) 1,000 mls @ 1,000 mls/hr IV BOLUS ONE Stop: 06/10/23 19:51 Last Infusion: 06/10/23 20:40 Dose: Infused Documented By: Admin: 06/10/23 19:25 Dose: 1,000 mls/hr Documented By: NENA Isosorbide Mononitrate (Isosorbide Mononitrate Er 30 Mg Tablet) 60 mg PO NOW ONE Stop: 06/10/23 20:03 Last Admin: 06/10/23 20:15 Dose: 60 mg Documented By: NENA Vital Signs Vital signs: Vital Signs - 8 hr 06/10/23 19:30 06/10/23 19:31 06/10/23 19:31 Pulse Rate 60 61 Respiratory Rate 28 H 23 Blood Pressure 225/92 H Pulse Oximetry 94 91 Oxygen Delivery Method 06/10/23 20:00 06/10/23 20:01 06/10/23 20:01 Pulse Rate 62 64 Respiratory Rate 20 24 Blood Pressure 242/102 H Pulse Oximetry 97 95 Oxygen Delivery Method 06/10/23 20:30 06/10/23 20:36 06/10/23 20:36 Pulse Rate 65 66 Respiratory Rate 23 22 Blood Pressure 217/89 H Pulse Oximetry 97 96 Oxygen Delivery Method Room Air Room Air 06/10/23 21:00 06/10/23 21:01 06/10/23 21:01 Pulse Rate 63 63 Respiratory Rate 10 L 18 Blood Pressure 225/90 H Pulse Oximetry 96 95 Oxygen Delivery Method MDM - Dizziness Lab Data 06/10/23 16:16 06/10/23 16:16 Labs: Lab Results 06/10/23 Range/Units 16:16 WBC 9.1 (4.5-11.0) X10^3/uL RBC 4.47 L (4.5-5.9) X10^6/uL Hgb 13.9 (13.5-17.5) g/dL Hct 41.1 (41-53) % MCV 92.0 (80-100) fL MCH 31.1 (26-34) PG MCHC 33.8 (30-36) % RDW 14.6 (11.6-14.8) % Plt Count 156 (150-400) X10^3/uL Neut % (Auto) 79.4 H (50-75) % Lymph % (Auto) 12.4 L (25-40) % [place] % (Auto) 7.1 (3-14) % Eos % (Auto) 0.3 L (2-4) % Baso % (Auto) 0.8 (0-2) % Neut # (Auto) 7300 H (2593-0065) /uL Lymph # (Auto) 1100 (2948-2061) /uL [place] # (Auto) 600 (0-900) /uL Eos # (Auto) 0 (0-450) /uL Baso # (Auto) 100 (0-100) /uL PT 10.9 (9.4-12.5) SECONDS INR 1.0 (0.9-1.3) APTT 28 (25.1-36.5) SECONDS Sodium 138 (137-145) mmol/L Potassium 3.1 L (3.4-5.1) mmol/L Chloride 102 (98-107) mmol/L Carbon Dioxide 28 (22-32) mmol/L BUN 61 H (9-20) mg/dL Creatinine 2.19 H (0.66-1.25) mg/dL Estimated GFR 30 L (>60) mL/min BUN/Creatinine Ratio 27.9 H (6-22) Glucose 113 H (80-110) mg/dL Calcium 9.2 (8.4-10.2) mg/dL Magnesium 2.3 (1.6-2.3) mg/dL Total Bilirubin 1.0 (0.2-1.3) mg/dL AST 51 (17-59) IU/L ALT 44 (<50) IU/L Alkaline Phosphatase 69 (38-126) U/L Total Creatine Kinase 227 H (55-170) U/L Troponin I 0.022 (0.01-0.034) ng/mL Total Protein 7.1 (6.3-8.2) g/dL Albumin 4.2 (3.5-5.0) g/dL Globulin 2.9 (1.7-4.1) g/dL Albumin/Globulin Ratio 1.4 (1.0-2.8) Lipase 142 (23-300) U/L Point of Care Testing Glucose POC 95 Imaging Data Chest x-ray: Radiologist's Impression: PROCEDURE: XR CHEST 1V INDICATIONS: chest pain TECHNIQUE: One view of the chest was acquired. COMPARISON: [facility], CR, XR CHEST 2V, 04/25/2023, 16:55. [facility], CR, XR CHEST 2V, 04/14/2023, 12:05. FINDINGS: Surgical changes and devices: None. Lungs and pleura: Lungs are clear except for a slight interstitial prominence, chronic. No pleural effusions or pneumothorax. Mediastinum: Mediastinal contours appear normal. Heart size is normal. Bones and chest wall: No suspicious bony lesions. Overlying soft tissues appear unremarkable. IMPRESSION: No acute cardiopulmonary abnormality is seen. Dictated by: Bentley Castro M.D. on 06/10/2023 at 17:05 CT scan - head: Radiologist's Impression: PROCEDURE: CT HEAD/BRAIN WO CON INDICATIONS: syncope, hit back of head TECHNIQUE: Noncontrast 4.5 mm thick angled axial sections acquired from the foramen magnum to the vertex, with coronal and sagittal reformats. For radiation dose reduction, the following was used: automated exposure control, adjustment of mA and/or kV according to patient size. COMPARISON: [facility], CT, CT HEAD/BRAIN WO CON, 09/30/2019, 16:56. [facility], CT, CT HEAD/BRAIN WO CON, 02/09/2018, 21:51. FINDINGS: Image quality: Diagnostic. CSF spaces: Basal cisterns are patent. No extra-axial fluid collections. The ventricles are symmetric in size and shape. Brain: No intracranial bleeds or masses. There is cerebral volume loss for age, with resultant ventricular and sulcal prominence. There are periventricular and deep white matter chronic small vessel ischemic changes. There is intracranial internal carotid artery atherosclerosis. Skull and face: Calvarium and visualized facial bones appear intact, without suspicious lesions. Sinuses: Visualized sinuses and mastoids are clear. IMPRESSION: No acute intracranial pathology. Dictated by: Bentley Castro M.D. on 06/10/2023 at 16:53 CT - cervical spine: Radiologist's Impression: PROCEDURE: CT CERVICAL SPINE WO CON INDICATIONS: fall/ hit head TECHNIQUE: Noncontrast 3 mm thick sections acquired from the skull base to the T4 level. Sagittal and coronal reformats were then constructed. For radiation dose reduction, the following was used: automated exposure control, adjustment of mA and/or kV according to patient size. COMPARISON: None. FINDINGS: Image quality: Excellent. Bones: No fractures or dislocations. Visualized superior ribs are intact. Soft tissues: Prevertebral soft tissues are normal in thickness. No paravertebral hematomas. No apical pneumothoraces. IMPRESSION: No displaced fracture or traumatic subluxation. Dictated by: Bentley Castro M.D. on 06/10/2023 at 16:53 CTA - brain/neck: Radiologist's Impression: PROCEDURE: CT ANGIO HEAD AND NECK INDICATIONS: carotid stenosis TECHNIQUE: After the administration of intravenous contrast, 1 mm thick sections acquired from the aortic arch through the [place] of [place]. 3-dimensional texmkci-tfuhgmyvg-bvvhhujlav (MIP) and/or volume rendering reformats were acquired of the central intracranial vasculature and neck separately. For radiation dose reduction, the following was used: automated exposure control, adjustment of mA and/or kV according to patient size. COMPARISON: [facility], MR, MR HEAD/BRAIN WO/W CON, 10/10/2019, 12:55. [facility], CT, CT HEAD/BRAIN WO CON, 06/10/2023, 16:30. [facility], CT, CT CERVICAL SPINE WO CON, 06/10/2023, 16:30. FINDINGS: Image quality: Diagnostic. BRAIN: CSF spaces: Ventricles are normal in size and shape. Basal cisterns are patent. No extra-axial fluid collections. Brain: No significant abnormality of the brain can be seen. Skull and face: Calvarium and facial bones appear intact, without suspicious lesions. Orbits appear normal. Sinuses: Sinuses and mastoids are clear. HEAD CT ANGIOGRAPHY: Anterior circulation: The right intracranial ICA is severely diminutive, (4/105). Presumed collateral flow as the MCA and LORI are patent. The flow within the paired anterior cerebral arteries is normal and symmetric. The flow within the middle cerebral arteries is normal and symmetric. The anterior communicating artery is seen. A right posterior communicating artery is seen. No aneurysms are seen. Posterior circulation: Visualized portions of the vertebral arteries demonstrate normal caliber, and join to form a normal appearing basilar artery. Flow within the posterior cerebral arteries is normal and symmetric. No aneurysms are seen. NECK CT ANGIOGRAPHY: Carotid system: The great vessels demonstrate a conventional anatomy as they arise from the aortic arch. The origins of the common carotid arteries appear patent. Right CCA is patent. Possible narrowing at the right CCA origin, artifact limits evaluation. Right ICA is occluded, (4/206). Left CCA is patent. Distal left CCA/proximal ICA stent is patent. Posterior circulation: The origins of the vertebral arteries both appear widely patent. Left vertebral artery is dominant. The more superior extracranial portions of both vertebral arteries also demonstrate normal courses and calibers. They join to form a normal appearing basilar artery. Soft tissues: Visualized neck soft tissues demonstrate no suspicious abnormalities. Bones: No suspicious bony lesions. Moderate degenerative changes in the cervical spine. Visualized cervical spine appears normally aligned. IMPRESSION: 1. No large vessel occlusion in the brain. 2. Right ICA is occluded, chronic etiology. Collateral flow in the brain. Possible narrowing at the proximal right CCA. 3. Left distal CCA/ICA stent is patent. Any quantitative measurements of stenosis were performed using NASCET criteria. Dictated by: Pb Nunez M.D. on 06/10/2023 at 19:55 Extremity x-ray #1: Radiologist's Impression: PROCEDURE: XR WRIST LT MIN 3V INDICATIONS: pain from a fall TECHNIQUE: 4 views of the wrist were acquired. COMPARISON: [facility], , XR WRIST LT MIN 3V, 12/19/2018, 11:06. [facility], , WRIST MINIMUM 3 VIEWS RIGHT, 04/06/2016, 10:12. FINDINGS: Bones: No fractures or dislocations. No suspicious bony lesions. Soft tissues: No suspicious soft tissue calcifications. IMPRESSION: No fracture demonstrated. Dictated by: Pb Nunez M.D. on 06/10/2023 at 20:20 ECG Data Attestation: I personally reviewed and interpreted this ECG as follows: Interpretation: Sinus rhythm rate 58 TN interval 192 QTC 150 right bundle-branch block QTC 555 MDM Narrative Medical decision making narrative: Patient 77-year-old male history of carotid artery stenosis presenting today with ongoing dizziness. He fell today. He is really complaining of left wrist pain. He states that his dizziness is not like vertigo. He has no focal deficits. NIH stroke scale is 0. MDM CC: Dizziness Complicating co-morbidities: Carotid artery stenosis Corroborating data: [ ] Data collected from: [ ] Medical records reviewed: last admission in 2022 Differential considered: Vertigo posterior stroke occluded carotid Exam documented above, pertinent findings include: NIH stroke scale is 0 focal deficits no nystagmus able to stand without difficulty in the ED Lab Test results independently reviewed as above. Pertinent findings: Stable chronic kidney disease creatinine 2.1, potassium 3.1 previously 3.2, hemoglobin 13.9 hematocrit 41.1, troponin 0.022 previously 0.09 Independently reviewed EKG as above: Sinus, Imaging studies independently reviewed: Head CT, CT neck, wrist x-ray chest x-ray CT angio head and neck Treatments: Pain medications, home blood pressure med Re-evaluations: [ ] Discussion: Patient is ambulatory denies any dizziness. Blood work has been reviewed without any sign of end-organ damage on he has got stable chronic kidney disease. CT angio shows stable findings with a patent stent and a totally occluded right carotid artery disease. His blood pressure is noted to be escalating during his stay. Blood pressure 150/65 was done on wrist. All other blood pressures have been well over 200. He was given a dose of isosorbide. It brought his blood pressure down some. He is really complaining of wrist pain which may be causing increase in blood pressure. At this time patient ambulated in the ED without any sort of dizziness weakness or issue. Recommended that he check his blood pressure at home. This may or may not be contributing to his symptoms. Says his blood pressure at home is elevated in the 160s and 170s but not really in the 200s. Discharge Plan Departure Patient Disposition: Home Clinical Impression: Hypertension, Dizziness, Sprain of left wrist Instructions: High Blood Pressure, DI for Dizziness-Nonvertigo Activity Restrictions/Additional Instructions: *You have been diagnosed with hypertension, left wrist sprain *What to do: At this time you may need your kidney function rechecked. Please take your blood pressure once daily blood pressure medication may also need to be adjusted. Please stay hydrated. Use wrist splint as needed. *Continue to take medications as directed Tylenol 650 mg every 4-6 hours for rawz-yu-ysjnnlyz pain [place] 1 tablet every 6 hours only if needed for severe *Follow up with your primary care provider in 2-3 days or call [phone] *Return to ER if you should have increasing dizziness falls pain numbness tingling weakness or any new, worsening or concerning symptoms CONTROLLED SUBSTANCE DISCHARGE (Narcotoic/benzodiazepine/Flexeril/Phenergan) 1. You have been prescribed narcotic medications, it does have acetaminophen/Tylenol/paracetamol in it, DO NOT TAKE MORE THAN 4,00mg in 24 hours of Tylenol. TRAMADOL DOES NOT CONTAIN TYLENOL 2. Please understand that we cannot provide further refills of narcotics, benzodiazepines or controlled substances through the ED and her pain management will need to be through your provider. 3. While on these medications you cannot drive or operate heavy machinery. 4. You cannot sign legal documents or perform any duties such as this. 5. As long as you're taking opiate pain medications he should also be taking a stool softener such as Colace, Dulcolax, MiraLAX or prune juice, to help avoid constipation. Prescriptions: New hydrocodone-acetaminophen 5-325 mg tablet 1 tab PO Q6H PRN (Reason: pain) Qty: 10 0RF No Action aspirin 81 mg Tablet 81 mg PO DAILY amoxicillin-pot clavulanate 875-125 mg Tablet 1 tab PO BID Qty: 14 0RF amlodipine [Norvasc] 5 mg Tablet 5 mg PO QACBREAK tamsulosin 0.4 mg Capsule 0.4 mg PO BEDTIME rosuvastatin [Crestor] 40 mg Tablet 40 mg PO DAILY bupropion HCl [Wellbutrin XL] 150 mg Tablet Extended Release 24 Hr 150 mg PO QAM Flonase Sensimist 27.5 mcg/actuation [place],Suspension 1 spray INTRANASAL BID levothyroxine 150 mcg Capsule 200 mcg PO DAILY furosemide 40 mg Tablet 80 mg PO QAM irbesartan 300 mg Tablet 300 mg PO DAILY prazosin 1 mg Capsule 1 mg PO BEDTIME fexofenadine 180 mg Tablet 180 mg PO DAILY isosorbide mononitrate 60 mg Tablet Extended Release 24 Hr 60 mg PO BID hydrochlorothiazide 25 mg Tablet 25 mg PO QMWF irbesartan 300 mg tablet 300 mg PO DAILY (DME) [employer] Airsense 10 CPAP Qty: 1 Dose Instruction: As directed Patient Comments: Pressure: 8-16 cmH2O DME: [facility] Rx Instructions: As directed Referrals: Thiago Dumont MD [Primary Care Provider] - Stand Alone Forms: Patient Portal/API
--- NOTE | 2023-06-10 18:52 | DI.CT.S_ITS ---
PROCEDURE: CT ANGIO HEAD AND NECK INDICATIONS: carotid stenosis TECHNIQUE: After the administration of intravenous contrast, 1 mm thick sections acquired from the aortic arch through the [place] of [place]. 3-dimensional mmtanis-dlqvntlqv-bmmxnxylmg (MIP) and/or volume rendering reformats were acquired of the central intracranial vasculature and neck separately. For radiation dose reduction, the following was used: automated exposure control, adjustment of mA and/or kV according to patient size. COMPARISON: [facility], MR, MR HEAD/BRAIN WO/W CON, 10/10/2019, 12:55. [facility], CT, CT HEAD/BRAIN WO CON, 06/10/2023, 16:30. [facility], CT, CT CERVICAL SPINE WO CON, 06/10/2023, 16:30. FINDINGS: Image quality: Diagnostic. BRAIN: CSF spaces: Ventricles are normal in size and shape. Basal cisterns are patent. No extra-axial fluid collections. Brain: No significant abnormality of the brain can be seen. Skull and face: Calvarium and facial bones appear intact, without suspicious lesions. Orbits appear normal. Sinuses: Sinuses and mastoids are clear. HEAD CT ANGIOGRAPHY: Anterior circulation: The right intracranial ICA is severely diminutive, (4/105). Presumed collateral flow as the MCA and LORI are patent. The flow within the paired anterior cerebral arteries is normal and symmetric. The flow within the middle cerebral arteries is normal and symmetric. The anterior communicating artery is seen. A right posterior communicating artery is seen. No aneurysms are seen. Posterior circulation: Visualized portions of the vertebral arteries demonstrate normal caliber, and join to form a normal appearing basilar artery. Flow within the posterior cerebral arteries is normal and symmetric. No aneurysms are seen. NECK CT ANGIOGRAPHY: Carotid system: The great vessels demonstrate a conventional anatomy as they arise from the aortic arch. The origins of the common carotid arteries appear patent. Right CCA is patent. Possible narrowing at the right CCA origin, artifact limits evaluation. Right ICA is occluded, (4/206). Left CCA is patent. Distal left CCA/proximal ICA stent is patent. Posterior circulation: The origins of the vertebral arteries both appear widely patent. Left vertebral artery is dominant. The more superior extracranial portions of both vertebral arteries also demonstrate normal courses and calibers. They join to form a normal appearing basilar artery. Soft tissues: Visualized neck soft tissues demonstrate no suspicious abnormalities. Bones: No suspicious bony lesions. Moderate degenerative changes in the cervical spine. Visualized cervical spine appears normally aligned. IMPRESSION: 1. No large vessel occlusion in the brain. 2. Right ICA is occluded, chronic etiology. Collateral flow in the brain. Possible narrowing at the proximal right CCA. 3. Left distal CCA/ICA stent is patent. Any quantitative measurements of stenosis were performed using NASCET criteria. Dictated by: Pb Nunez M.D. on 06/10/2023 at 19:55 Approved by: Pb Nunez M.D. on 06/10/2023 at 20:06
[2023-06-10] MEDS: ACETAMINOPHEN 325 MG TABLET 650 MG PO (19:20)
[2023-06-10] MEDS: SODIUM CHLORIDE 0.9% 1,000 ML 1000 ML IV (19:25)
[2023-06-10] MEDS: ISOSORBIDE MONONITRATE ER 30 MG TABLET 60 MG PO (20:15)
[2023-06-10] MEDS: HYDROCODONE/ACET 5/325 PREPACK 1 BOTTLE MISC (21:14)
[2023-06-10] MEDS: HYDROCODONE/ACET 5/325 TABLET 1 TAB PO (21:14)
--- NOTE | 2023-06-10 21:24 | PC.NURSE ---
MD Gonzalez aware of blood pressure. Pt and verbalized understanding to follow up with PCP to have meds changed and to check his blood pressure at home.
--- NOTE | 2023-06-10 21:29 | PC.NURSE ---
Pt ambulatrion trial very successful. Pt says his wrist pain has decreased since getting out of bed. Pt denies any dizziness or other symptoms. Says he feels safe to be discharged.
== END 2023-06-10 21:33 | disposition home or self-care (01) ==
PROVIDERS: Emergency Medicine; Emergency Provider Emergency Medicine; PCP Family Medicine
DX: I10 Essential (primary) hypertension (principal); S63.502A Unspecified sprain of left wrist, initial encounter; R42 Dizziness and giddiness; R07.9 Chest pain, unspecified; R55 Syncope and collapse; S09.90XA Unspecified injury of head, initial encounter; Z79.899 Other long term (current) drug therapy
CPT/HCPCS: 36415; 70450; 70496; 70498; 71045; 72125; 73110; 80053; 82550; 82962; 83690; 83735; 84484; 85025; 85610; 85730; 93005; 96360; 99285; Q9967

== ENCOUNTER → 2023-09-13 15:02 | Outpatient (CLI) | payer OTHER, SELFPAY ==
--- NOTE | 2023-09-13 15:04 | DI.US.S_ITS ---
PROCEDURE: US CAROTID DOPPLER BI INDICATIONS: RIGHT CAROTID ARTERY OCC,SUBMANDIBULAR DUCT OBST TECHNIQUE: Color and pulse Doppler interrogation was performed of both carotid systems, with image documentation and velocity measurements. COMPARISON: [facility], CT, CT ANGIO HEAD AND NECK, 06/10/2023, 18:59. FINDINGS: Stenosis calculations are based on SRU (Society of Radiologists in Ultrasound) criteria. Right side: Brachial blood pressure: 151/54 mm Hg. Common carotid artery peak systolic velocity: 70 cm/sec. Internal carotid artery peak systolic velocity: Occluded Internal carotid artery end diastolic velocity: Occluded External carotid artery peak systolic velocity: 299 cm/sec. ICA/CCA peak systolic ratio: Not applicable. Frias scale imaging description: Plaque is seen Percent internal carotid artery stenosis: Occluded. Vertebral artery: Flow direction is antegrade. Left side: Brachial blood pressure: 137/51 mm Hg. Common carotid artery peak systolic velocity: 82 cm/sec. Internal carotid artery peak systolic velocity: 87 cm/sec. Internal carotid artery end diastolic velocity: 25 cm/sec. External carotid artery peak systolic velocity: 296 cm/sec. ICA/CCA peak systolic ratio: 1.1 . Frias scale imaging description: Mild plaque. ICA stent. Percent internal carotid artery stenosis: Less than 50% stenosis. Vertebral artery: Flow direction is antegrade. IMPRESSION: 1. Right ICA: Occluded as before. 2. Left ICA: Stent is patent. Less than 50% stenosis. 3. Antegrade flow in the bilateral vertebral arteries. Dictated by: Pb Nunez M.D. on 09/13/2023 at 22:31 Approved by: Pb Nunez M.D. on 09/13/2023 at 22:34
--- NOTE | 2023-09-13 15:04 | DI.US.S_ITS ---
PROCEDURE: US SOFT TISSUE HEAD AND NECK INDICATIONS: RIGHT CAROTID ARTERY OCC,SUBMANDIBULAR DUCT OBST TECHNIQUE: Real-time scanning was performed of the neck region of interest, with image documentation. COMPARISON: None. FINDINGS: Hypoechoic nodule at the inferior aspect of the parotid gland measuring 1.6 x 1.0 x 1.4 centimeters. IMPRESSION: Hypoechoic nodule at the inferior left parotid gland. Differential includes primary parotid neoplasm versus abnormal lymph node. Metastatic disease cannot be excluded and clinical correlation is recommended. Fine-needle aspiration can be obtained for further evaluation as clinically indicated. Dictated by: Abelino Wheatley M.D. on 09/13/2023 at 17:13 Approved by: Abelino Wheatley M.D. on 09/13/2023 at 17:14
== END ==
LOC: US 15:03
PROVIDERS: PCP Family Medicine; Referring Provider Registered Nurse; Visit Provider Registered Nurse
DX: I65.23 Occlusion and stenosis of bilateral carotid arteries (principal); K11.8 Other diseases of salivary glands
CPT/HCPCS: 76536; 93880

== ENCOUNTER → 2023-10-04 13:19 | Outpatient (CLI) | payer OTHER, SELFPAY ==
--- NOTE | 2023-10-04 13:22 | DI.RAD.S_ITS ---
PROCEDURE: XR HAND RT MIN 3V INDICATIONS: PAIN, STATUS POST FALL TECHNIQUE: 3 views of the hand(s) acquired. COMPARISON: None. FINDINGS: Bones: No fractures or dislocations. Carpal bones are normally aligned. No suspicious bony lesions. Severe DJD of the distal interphalangeal joint of the 2nd digit identified with joint space narrowing, marginal osteophytes and sclerosis. Soft tissues: No radiographically evident soft tissue swelling. No radiopaque foreign body seen. 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 Dictated by: Juan Hollingsworth M.D. on 10/04/2023 at 14:58 Approved by: Juan Hollingsworth M.D. on 10/04/2023 at 15:00
--- NOTE | 2023-10-04 13:22 | DI.RAD.S_ITS ---
PROCEDURE: XR WRIST RT 2V INDICATIONS: PAIN TECHNIQUE: 2 views of the wrist were acquired. COMPARISON: [facility], CR, XR HAND RT MIN 3V, 10/04/2023, 13:25. [facility], CR, XR WRIST LT MIN 3V, 06/10/2023, 18:14. [facility], CR, XR WRIST LT MIN 3V, 12/19/2018, 11:06. FINDINGS: Bones: No fractures or dislocations. Soft tissues: No suspicious soft tissue calcifications. IMPRESSION: No acute bony abnormality. Dictated by: Juan Hollingsworth M.D. on 10/04/2023 at 14:52 Approved by: Juan Hollingsworth M.D. on 10/04/2023 at 14:58
== END ==
LOC: RAD 13:20
PROVIDERS: PCP Family Medicine; Referring Provider Family Medicine; Visit Provider Family Medicine
DX: M19.041 Primary osteoarthritis, right hand (principal); M79.641 Pain in right hand; M25.531 Pain in right wrist
CPT/HCPCS: 73100; 73130

== ENCOUNTER → 2023-10-07 14:12 | Outpatient (CLI) | payer OTHER, SELFPAY ==
--- NOTE | 2023-10-07 14:13 | DI.US.S_ITS ---
PROCEDURE: US FINE NEEDLE ASPIRATION INDICATIONS: NODULE OF PAROTID GLAND TECHNIQUE: The indications, alternatives, benefits, risks, and complications of the procedure were explained to the patient. Written informed consent was obtained and placed in the chart. The area of interest was examined sonographically and a site was chosen for ultrasound guided percutaneous sampling. The skin was prepared and draped in the usual fashion, and anesthetized with 1% lidocaine infiltrated from the skin down to the lesion. Multiple passes were then performed, with contents emptied into an appropriate pathology specimen container. A bandage was applied to the area of access at completion of the study. COMPARISON: None. FINDINGS: Location(s) of lesion(s) sampled: Left parotid gland nodule. Blaine: 22 and 25 gauge hypodermic needles. Number of passes: 6 Medications: 1% lidocaine for local anaesthesia. Complications: None. IMPRESSION: Successful ultrasound-guided left parotid gland nodule fine needle aspiration, with cytology results pending. Dictated by: Arturo Go M.D. on 10/07/2023 at 16:56 Approved by: Arturo Go M.D. on 10/07/2023 at 16:57
--- NOTE | 2023-10-07 15:36 | PATH_ITS ---
Note [facility] Accession Number: [id number] TESTS RESULT FLAG UNITS REF RANGE LAB Clinician Provided Cytology Information No. of containers..02 Other (Miscellaneous) 70 Unknown Storage/container code(s) Source: LEFT PAROTID MASS DIAGNOSIS: LEFT PAROTID MASS, FINE NEEDLE ASPIRATION. NEGATIVE FOR MALIGNANT CELLS. GROUPS OF SALIVARY GLAND EPITHELIUM WITH ONCOCYTIC CHANGES AND BACKGROUND FEW LYMPHOCYTES, SEE COMMENT. COMMENT: EXAMINATION OF THE SMEARS AND THIN PREP SLIDE REVEALS A MILDLY CELLULAR ASPIRATE, COMPOSED OF GROUPS OF EPITHELIAL CELLS WITH ONCOCYTIC MORPHOLOGY, IN A BACKGROUND OF FEW SMALL LYMPHOCYTES. ALTHOUGH WARTHIN'S TUMOR IS A CONSIDERATION, THE POSSIBILITY OF SAMPLING SALIVARY GLAND TISSUE WITH ONCOCYTIC METAPLASIA, AND ADJACENT LANETTE/INTRAPAROTID LYMPH NODE CANNOT BE ENTIRELY EXCLUDED. CLINICAL AND RADIOLOGIC CORRELATION IS RECOMMENDED FOR ACCURATE INTERPRETATION. NEGATIVE FOR SIGNIFICANT ATYPIA OR MALIGNANCY. Pathologist ICD10: 01 K11.8 Signed out by: Juan Leon MD, Pathologist NPI- [id number] Performed by: Irena Francis, Lining Repairer ([facility]) Gross description: 30 CC, YELLOW, CLEAR RECIEVED: IN CYTOLYT WITH 5 ALCOHOL FIXED AND 5 QUICK STAINED SLIDES ALSO ONE RPMI TUBE. VO /VDU 10/10/2023 0803 Local FLAG LEGEND: L-Low Normal,H-High Normal,LL-Alert Low,HH-Alert High <-Panic Low,>-Panic High,A-Abnormal,AA-Critical Abnormal Performed at: [address] [place] [address], [place] [id number] Travis Mayorga MD, Performed at: [address] [address], [place], [place] [id number] MD Travis Mayorga MD Phone: [phone]
== END ==
LOC: US 14:12
PROVIDERS: PCP Family Medicine; Referring Provider Registered Nurse; Visit Provider Registered Nurse
DX: K11.8 Other diseases of salivary glands (principal)
CPT/HCPCS: 10005

== ENCOUNTER → 2024-07-30 12:28 | Outpatient (CLI) | payer OTHER, SELFPAY ==
--- NOTE | 2024-07-30 12:33 | DI.RAD.S_ITS ---
PROCEDURE: XR CHEST 2V INDICATIONS: CHEST PAIN TECHNIQUE: 2 views of the chest were acquired. COMPARISON: [facility], CR, XR CHEST 1V, 06/10/2023, 16:02. FINDINGS: Surgical changes and devices: None. Lungs and pleura: Lungs are clear. No pleural effusions or pneumothorax. Mediastinum: Mediastinal contours are normal. Heart size is normal. Bones and chest wall: No suspicious bony abnormalities. Soft tissues appear unremarkable. IMPRESSION: No acute cardiopulmonary abnormality is seen. Dictated by: Garrett Mckeon M.D. on 07/30/2024 at 23:58 Approved by: Garrett Mckeon M.D. on 07/30/2024 at 23:58
== END ==
LOC: RAD 12:32
PROVIDERS: PCP Family Medicine; Referring Provider Family Medicine; Visit Provider Family Medicine
DX: J44.1 Chronic obstructive pulmonary disease with (acute) exacerbation (principal)
CPT/HCPCS: 71046